=== PATIENT | female | born 1935 | race Caucasian/White ===

== ENCOUNTER 2017-10-29 23:23 | Emergency (ER) | payer MEDICARE, OTHER ==
[2017-10-29] MEDS ORDERED: MORPHINE SULFATE 10 MG/ML INJ IV ONE (23:33)
--- NOTE | 2017-10-29 23:36 | ER Document Report ---
ED General - General Stated Complaint: FALL/HIP PAIN Time Seen by Provider: 10/29/17 23:32 Notes: Patient is an 82-year-old female who presents with complaint of pain in her left hip after she tripped and fell while leaving [facility]. She says she is walking across white gravel and was using her cane and then stumbled and fell onto her left side. She also hit the back of her head. She initially had a headache but now her headache is almost gone after receiving some pain medicine and a months. She still has a lot of left hip pain. No weakness or numbness into her left leg. No pain into the upper extremities back or neck. No pain in the chest abdomen pelvis. She does not take any blood thinning medications. She says a fall was mechanical. She was not feeling lightheaded or dizzy before the fall. No loss of consciousness. TRAVEL OUTSIDE OF THE [place] IN LAST 30 DAYS: No - Related Data Allergies/Adverse Reactions: adalimumab [From Humira] Allergy (Verified 10/29/17 23:51) amoxicillin [From Augmentin] Allergy (Verified 10/29/17 23:51) celecoxib [From Celebrex] Allergy (Verified 10/29/17 23:51) ciprofloxacin [From Cipro] Allergy (Verified 10/29/17 23:51) clavulanic acid [From Augmentin] Allergy (Verified 10/29/17 23:51) infliximab [From Remicade] Allergy (Verified 10/29/17 23:51) metformin Allergy (Verified 10/29/17 23:51) morphine Allergy (Verified 10/29/17 23:51) Sulfa (Sulfonamide Antibiotics) Allergy (Verified 10/29/17 23:51) colchicine Allergy (Uncoded 10/29/17 23:51) Past Medical History - Social History Smoking Status: Never Smoker Frequency of alcohol use: None Drug Abuse: None Family History: Reviewed & Not Pertinent Review of Systems - Review of Systems Notes: My Normal Review Basic REVIEW OF SYSTEMS: CONSTITUTIONAL : Denies fever, chills, or sweats. Denies recent illness. EENT: No facial pain. CARDIOVASCULAR: Denies chest pain. RESPIRATORY: Denies cough, cold, or chest congestion. Denies shortness of breath, difficulty breathing, or wheezing. GASTROINTESTINAL: Denies abdominal pain. Denies nausea, vomiting, or diarrhea. MUSCULOSKELETAL: Left hip pain SKIN: Denies rash or skin lesions. NEUROLOGICAL: Denies altered mental status or loss of consciousness. Had a headache. Denies weakness or paralysis or loss of use of either side. Denies problems with gait or speech. Denies sensory or motor loss. ALL OTHER SYSTEMS REVIEWED AND NEGATIVE. Physical Exam - Vital signs Vitals: Temp Pulse Resp BP Pulse Ox 99 F 98 18 153/91 H 99 10/29/17 23:23 10/29/17 23:23 10/29/17 23:23 10/29/17 23:23 10/29/17 23:23 - Notes Notes: General Appearance: Well nourished, alert, cooperative, no acute distress, mild to moderate obvious discomfort. Vitals: reviewed, See vital signs table. Head: no swelling or tenderness to the head Eyes: PERRL, EOMI, Conjuctiva clear Mouth: No decreasd moisture Neck: Supple, no neck tenderness, no step-offs or deformities. Back: No pain to palpation of thoracic or lumbar spine. No step-offs or acute deformities. Lungs: No wheezing, No rales, No rhonci, No accessory muscle use, good air exchange bilaterally. Heart: Normal rate, Regular rythm, No murmur, no rub Abdomen: Normal BS, soft, No rigidity, No abdominal tenderness, No guarding, no rebound, no abdominal masses, no organomegaly Extremities: good pulses in all extremities, no swelling or tenderness in the extremities with exception of some pain to palpation over left hip and pain with any slight movement of the left hip. Remainder of left lower extremity is nontender. Other 3 extremities are nontender to palpation and have full range of motion without pain. Pelvis is stable. Skin: warm, dry, appropriate color, no rash Neuro: speech clear, oriented x 3, normal affect, responds appropriately to questions. Renal nerves II through XII are intact. Distal sensation intact. Patient is good strength in all 4 extremities. Course - Re-evaluation Re-evalutation: 10/30/17 00:55 Written reevaluate the patient. She did have some increasing pain and therefore ordered more fentanyl. I did inform her her daughter of the broken hip. She has had previous surgeries done by Dr. Brewer in [place]. That was long time ago. She also has . She is from the [facility] whether or not she wants to stay here or go to another hospital. I did talk to him length about this. I did inform them that we are happy to take care of her here. I informed her depending on her insurance sometimes the insurance will not pay the cost of transfer being that this is a conditioning care for here. I told her I cannot confirm or deny this with her current insurance. They are understanding of this. They said they would think about it and let me know if they want to stay here and get treatment or go somewhere else. 10/30/17 01:36 Patient informs me that she wants to be transferred to [place]. Once patient' s blood work is back I will call [facility] to talk to them about transfer. 10/30/17 04:34 10/30/17 04:58 10/30/17 04:[address] Licona, orthopedist, who agrees to accept the patient for transfer. 10/30/17 07:55 On reevaluation patient started having some recurrent pain. I will give her another dose of fentanyl as this has worked well for her in the past. She otherwise has no further concerns and looks well. She is still currently medically stable for transport. Dictation of this chart was performed using voice recognition software; therefore, there may be some unintended grammatical errors. - Vital Signs Vital signs: Temp Pulse Resp BP Pulse Ox 98.3 F 98 18 131/70 H 100 10/30/17 05:36 10/29/17 23:23 10/30/17 07:01 10/30/17 07:01 10/30/17 07:01 - Laboratory Result Diagrams: 10/30/17 02:05 10/30/17 02:05 Laboratory results interpreted by me: 10/30/17 10/30/17 02:05 02:05 RBC 3.22 L Hgb 10.6 L Hct 31.7 L MCV 98 H Seg Neutrophils % 89.1 H Lymphocytes % 6.5 L Potassium 5.2 H Chloride 114 H Carbon Dioxide 13 L BUN 31 H Creatinine 1.90 H Est GFR ( Amer) 31 L Est GFR (Non-Af Amer) 25 L Glucose 115 H Direct Bilirubin 0.5 H Total Protein 8.5 H - EKG Interpretation by Me Additional EKG results interpreted by me: 10/30/17 01:47 EKG is reviewed and interpreted by me. EKG shows sinus rhythm with rate of [address] segment elevation. Less than [address] segment depression in leads V5 and V6. MN interval within normal range. QRS duration is prolonged. QTc interval is borderline. Patient does have a right bundle branch block. No old EKG available for comparison. Discharge - Discharge Clinical Impression: Renal insufficiency, mild Intertrochanteric fracture Qualifiers: Encounter type: initial encounter Fracture type: closed Fracture alignment: displaced Laterality: left Qualified Code(s): S72.142A - Displaced intertrochanteric fracture of left femur, initial encounter for closed fracture Condition: Stable Disposition: Count includes the [facility]
[2017-10-29] MEDS ORDERED: FENTANYL CITRATE INJ/PF 100 MCG/2 ML AMPUL IV ONE (23:41)
--- NOTE | 2017-10-30 00:11 | RADIOLOGY REPORT (SQ) ---
PROCEDURE: CT OF THE HEAD WITHOUT INTRAVENOUS CONTRAST HISTORY: trauma Indication: Same as above Comparison: None Technique: The study was done on 10/29/2017 at 11:[address] of the head was done without intravenous contrast was done in the orthogonal planes. This exam was performed according to our departmental dose-optimization program, which includes automated exposure control, adjustment of the mA and/or KV according to the patient's size and/or use of iterative reconstruction technique. FINDINGS: There is no intracranial hemorrhage, midline shift mass effect or acute focal infarct. There is prominence of the sylvian fissures and the cortical sulci reflecting age related volume loss. There is periventricular and deep white matter low attenuation, most likely related to small vessel white matter ischemic disease. Intracranial atherosclerotic vascular wall calcifications are seen. If clinical concern exists regarding an acute ischemic/vascular pathology being responsible for patient's symptomatology, an MRI of the brain is more sensitive than the current study, in ruling out such a possibility. There is good cardoso/white matter differentiation. The ventricular system is normal. The mastoid air cells are unremarkable . The paranasal sinuses show changes of left maxillary chronic sinusitis . There is no visualization of acute fractures involving the calvarium or the skull base. IMPRESSION: There is no acute intracranial abnormality. Age related and chronic involutional changes are seen.
--- NOTE | 2017-10-30 00:17 | RADIOLOGY REPORT (SQ) ---
EXAM DESCRIPTION: XR HIP 2 OR MORE VIEWS COMPLETED DATE/TME: 10/29/2017 23:32 CLINICAL HISTORY: 82 years, Female, trauma COMPARISON: None. NUMBER OF VIEWS: Three view LIMITATIONS: None. FINDINGS: Comminuted intratrochanteric fracture of the left femur with 1.6 cm distraction. Fracture/deformity of the right inferior pubic ramus with 0.5 cm inferior displacement. IMPRESSION: Fracture of the left proximal femur. Fracture/deformity of the right inferior pubic ramus.
[2017-10-30] MEDS ORDERED: FENTANYL CITRATE INJ/PF 100 MCG/2 ML AMPUL IV ONE ×4 (00:54→07:55)
[2017-10-30 02:22] LABS: ABSOLUTE LYMPHOCYTES (AUTO) 0.5 10^3/uL (0.5-4.7); ABSOLUTE MONOCYTES (AUTO) 0.3 10^3/uL (0.1-1.4); ABSOLUTE NEUT (AUTO) 7.4 10^3/uL (1.7-8.2); BASOPHILS % (AUTO) 0.3 % (0-2); HEMATOCRIT 31.7 % (36.0-47.0); HEMOGLOBIN 10.6 g/dL (12.0-15.5); LYMPHOCYTES % (AUTO) 6.5 % (13-45); MEAN CORPUSCULAR HEMOGLOBIN 32.8 pg (27.0-33.4); MEAN CORPUSCULAR HGB CONC 33.4 g/dL (32.0-36.0); MEAN CORPUSCULAR VOLUME 98 fl (80-97); MONOCYTES % (AUTO) 4.1 % (3-13); PLATELET COUNT 157 10^3/uL (150-450); RED BLOOD COUNT 3.22 10^6/uL (3.72-5.28); RED CELL DISTRIBUTION WIDTH 13.8 % (11.5-14.0); SEGMENTED NEUTROPHILS % (AUTO) 89.1 % (42-78); TOTAL CELLS COUNTED % (AUTO) 100 %; WHITE BLOOD COUNT 8.4 10^3/uL (4.0-10.5)
[2017-10-30 02:28] LABS: INTERNATIONAL RATION (INR) 1.05; PROTHROMBIN TIME 14.2 SEC (11.4-15.4)
[2017-10-30 02:29] LABS: PARTIAL THROMBOPLASTIN TIME 27.2 SEC (23.5-35.8)
--- NOTE | 2017-10-30 02:45 | RADIOLOGY REPORT (SQ) ---
EXAM DESCRIPTION: XR CHEST 1 VIEW COMPLETED DATE/TME: 10/30/2017 00:46 CLINICAL HISTORY: 82 years Female, preop screening COMPARISON: None. NUMBER OF VIEWS/TECHNIQUE: 1/AP FINDINGS: Increased lung volume, 14 cm rounded opacity of the lower mid thorax probably due to a large hiatal hernia,, normal cardiac silhouette atherosclerosis, and grossly intact bony thorax. IMPRESSION: Probably large hiatal hernia; differential diagnosis includes neoplasm. Recommend CT of the chest.
[2017-10-30 02:59] LABS: ALANINE AMINOTRANSFERASE 18 U/L (9-52); ALBUMIN 4.1 g/dL (3.5-5.0); ALKALINE PHOSPHATASE 88 U/L (38-126); ANION GAP 16 (5-19); ASPARTATE AMINO TRANSFERASE 23 U/L (14-36); BILIRUBIN,DIRECT 0.5 mg/dL (0.0-0.4); BILIRUBIN,TOTAL 0.5 mg/dL (0.2-1.3); BLOOD UREA NITROGEN 31 mg/dL (7-20); CALCIUM 9.6 mg/dL (8.4-10.2); CARBON DIOXIDE 13 mmol/L (22-30); CHLORIDE 114 mmol/L (98-107); GLUCOSE 115 mg/dL (75-110); POTASSIUM 5.2 mmol/L (3.6-5.0); SODIUM 142.6 mmol/L (137-145); TOTAL PROTEIN 8.5 g/dL (6.3-8.2)
[2017-10-30] MEDS ORDERED: NORMAL SALINE 1000 ML 1,000 ML IV ONE (05:12)
--- NOTE | 2017-10-30 07:40 | EKG REPORT ---
SEVERITY:- ABNORMAL ECG - SINUS RHYTHM RIGHT BUNDLE BRANCH BLOCK NONSPECIFIC ST-T CHANGES- INFERIOR LEADS : Confirmed by: Art Morales MD 30-Oct-2017 07:39:27
[2017-10-30 10:09] VITALS: BP 132/59
== END 2017-10-30 10:00 | disposition short-term general hospital (02) ==
LOC: ER 23:23
DX: S72.142A Displaced intertrochanteric fracture of left femur, initial encounter for closed fracture (principal); M25.552 Pain in left hip; R51 Headache; W01.0XXA Fall on same level from slipping, tripping and stumbling without subsequent striking against object, initial encounter; Y93.89 Activity, other specified; N28.9 Disorder of kidney and ureter, unspecified; I45.10 Unspecified right bundle-branch block; Z88.8 Allergy status to other drugs, medicaments and biological substances; Z88.0 Allergy status to penicillin; Z88.1 Allergy status to other antibiotic agents; Z88.5 Allergy status to narcotic agent; Z88.2 Allergy status to sulfonamides
CPT/HCPCS: 93005; 96376; 99285; 96361; 51702; 96374; 36415; 85025; 85610; 85730; 80053; 71045; 73502; 70450; 93010; J3010 ×2; J7030

== ENCOUNTER 2020-01-13 18:53 | Inpatient (IN) | payer MEDICARE, OTHER ==
--- NOTE | 2020-01-13 20:29 | ER Document Report ---
ED General - General Chief Complaint: Fall Stated Complaint: FALL/AMS Time Seen by Provider: 01/13/20 20:28 TRAVEL OUTSIDE OF THE [place] IN LAST 30 DAYS: No - HPI Notes: 84-year-old female presents following fall. Patient states that this morning she went to get out of the bed, she was walking with her walker, tripped and fell. States she landed onto her but then the right hip. She has had right hip pain since. Pain is worse with movement. She states that she was able to ambulate some at home. Additionally is reporting right knee pain. She reports that she has had hip surgery on the left hip. States she did not hit her head, no loss of consciousness. She states she has had some nausea and vomiting, denies abdominal pain. States that she had a history of Crohn's disease but has not been on medications for that in several years, states the only medicines she takes is pain medication every once in a while, she does not see a primary care doctor. - Related Data Allergies/Adverse Reactions: adalimumab [From Humira] Allergy (Verified 10/29/17 23:51) amoxicillin [From Augmentin] Allergy (Verified 10/29/17 23:51) celecoxib [From Celebrex] Allergy (Verified 10/29/17 23:51) ciprofloxacin [From Cipro] Allergy (Verified 10/29/17 23:51) clavulanic acid [From Augmentin] Allergy (Verified 10/29/17 23:51) infliximab [From Remicade] Allergy (Verified 10/29/17 23:51) metformin Allergy (Verified 10/29/17 23:51) morphine Allergy (Verified 10/29/17 23:51) Sulfa (Sulfonamide Antibiotics) Allergy (Verified 10/29/17 23:51) colchicine Allergy (Uncoded 10/29/17 23:51) Past Medical History - General Information source: Patient - Social History Smoking Status: Former Smoker Chew tobacco use (# tins/day): No Frequency of alcohol use: None Drug Abuse: None Family History: Reviewed & Not Pertinent Renal/ Medical History: Denies: Hx Peritoneal Dialysis Review of Systems - Review of Systems Constitutional: No symptoms reported EENT: No symptoms reported Cardiovascular: denies: Chest pain Respiratory: denies: Short of breath Gastrointestinal: Nausea, Vomiting. denies: Abdominal pain Genitourinary: denies: Dysuria Female Genitourinary: No symptoms reported Musculoskeletal: See HPI Skin: No symptoms reported Hematologic/Lymphatic: No symptoms reported Neurological/Psychological: denies: Headaches Physical Exam - Vital signs Vitals: Temp Pulse Resp BP Pulse Ox 97.4 F 96 14 150/81 H 100 01/13/20 19:02 01/13/20 19:02 01/13/20 19:02 01/13/20 19:02 01/13/20 19:02 - General General appearance: Appears well, Alert In distress: None - HEENT Head: Normocephalic, Atraumatic Extraocular movements intact: Yes Pupils: PERRL Notes: Full range of motion of neck, no midline tenderness - Respiratory Chest status: Nontender Breath sounds: Normal - Cardiovascular Rhythm: Regular Heart sounds: Normal auscultation Pulses: Normal: Dorsalis pedis Normal capillary refill: Yes - Abdominal Tenderness: Nontender - Extremities Notes: Right leg is internally rotated. Patient has tenderness to the lateral aspect of right proximal thigh. No tenderness to left hip. Range of motion preserved to right knee. Patient is able to wiggle toes of right foot. - Neurological Neuro grossly intact: Yes Cognition: Normal Orientation: AAOx4 Notes: Strength and sensation intact lower extremities - Psychological Associated symptoms: Normal affect - Skin Skin Temperature: Warm Notes: No wound to right hip Course - Re-evaluation Re-evalutation: 84-year-old female with fall from standing, no loss of consciousness or head injury, right hip pain. On exam she is a GCS 15, hemodynamically stable, NCAT, no midline tenderness, no chest/abdomen tenderness. She does have tenderness to the right proximal lateral thigh and the leg is internally rotated, high suspicion for fracture. Right leg is overall neurovascularly in tact. Although she reports no head injury, will CT head and C-spine to ensure that no additional traumatic injuries are present. Has preserved range of motion to right knee and has been ambulatory, will order x-ray to evaluate for fracture. Check labs and urine. Patient reports some nausea/vomiting, possible this is pain related, will treat with Zofran and Pepcid. 01/13/20 21:09 Appears to the right femur fracture, awaiting final read 01/13/20 22:18 Imaging reports available, reviewed. Per radiology head CT is negative for bleed, no C-spine fracture, no knee fracture, positive intertrochanteric fracture Labs/urine grossly unremarkable 01/13/20 22:[address] Delgado on for orthopedics, request medical admission and will see patient in consultation 01/13/20 22:29 Patient and son updated on results and need for admission/surgery 01/13/20 22:49 Patient was excepted to the hospital service for admission. I did have a discussion with son given that her last ED visit for left femur fracture resulted in patient transfer per family request. Patient and son confirmed that they are comfortable with patient staying here for medical/surgical care. - Vital Signs Vital signs: Temp Pulse Resp BP Pulse Ox 97.4 F 96 14 150/81 H 100 01/13/20 19:02 01/13/20 19:02 01/13/20 19:02 01/13/20 19:02 01/13/20 19:02 - Laboratory Result Diagrams: 01/13/20 19:04 01/13/20 19:04 Laboratory results interpreted by me: 01/13/20 01/13/20 01/13/20 19:04 19:04 21:42 Lymph % (Auto) 7.7 L Absolute Neuts (auto) 8.4 H Seg Neutrophils % 85.9 H Sodium 133.8 L Chloride 96 L Est GFR ( Amer) 58 L Est GFR (MDRD) Non-Af 48 L Glucose 223 H Total Protein 8.7 H Urine Protein 100 H - Diagnostic Test Radiology reviewed: Image reviewed, Reports reviewed Discharge - Discharge Clinical Impression: Intertrochanteric fracture of right femur Qualifiers: Encounter type: initial encounter Fracture type: closed Fracture alignment: displaced Qualified Code(s): S72.141A - Displaced intertrochanteric fracture of right femur, initial encounter for closed fracture Disposition: ADMITTED INPATIENT Admitting Provider: Rosa (Hospitalist) Unit Admitted: Medical Floor
[2020-01-13] MEDS ORDERED: ONDANSETRON HCL INJ/PF 4 MG/2 ML SDV IV ONE (20:37)
[2020-01-13] MEDS ORDERED: FAMOTIDINE INJ/PF 20 MG/2 ML SDV IV ONE (20:37)
[2020-01-13] MEDS ORDERED: FENTANYL CITRATE INJ/PF 100 MCG/2 ML AMPUL IV PRN (20:39)
[2020-01-13 20:47] LABS: ABSOLUTE LYMPHOCYTES (AUTO) 0.8 10^3/uL (0.5-4.7); ABSOLUTE MONOCYTES (AUTO) 0.6 10^3/uL (0.1-1.4); ABSOLUTE NEUT (AUTO) 8.4 10^3/uL (1.7-8.2); BASOPHILS % (AUTO) 0.1 % (0-2); HEMATOCRIT 43.1 % (36.0-47.0); HEMOGLOBIN 15.2 g/dL (12.0-15.5); LYMPHOCYTES % (AUTO) 7.7 % (13-45); MEAN CORPUSCULAR HEMOGLOBIN 32.9 pg (27.0-33.4); MEAN CORPUSCULAR HGB CONC 35.2 g/dL (32.0-36.0); MEAN CORPUSCULAR VOLUME 93 fl (80-97); MONOCYTES % (AUTO) 6.3 % (3-13); PLATELET COUNT 240 10^3/uL (150-450); RED BLOOD COUNT 4.62 10^6/uL (3.72-5.28); RED CELL DISTRIBUTION WIDTH 13.5 % (11.5-14.0); SEGMENTED NEUTROPHILS % (AUTO) 85.9 % (42-78); TOTAL CELLS COUNTED % (AUTO) 100 %; WHITE BLOOD COUNT 9.7 10^3/uL (4.0-10.5)
[2020-01-13 21:03] LABS: ALBUMIN 4.6 g/dL (3.5-5.0); ALKALINE PHOSPHATASE 97 U/L (38-126); ANION GAP 15 (5-19); ASPARTATE AMINO TRANSFERASE 34 U/L (14-36); BILIRUBIN,DIRECT 0.2 mg/dL (0.0-0.4); BILIRUBIN,TOTAL 0.8 mg/dL (0.2-1.3); BLOOD UREA NITROGEN 18 mg/dL (7-20); CALCIUM 9.9 mg/dL (8.4-10.2); CARBON DIOXIDE 23 mmol/L (22-30); CHLORIDE 96 mmol/L (98-107); GLUCOSE 223 mg/dL (75-110); TOTAL PROTEIN 8.7 g/dL (6.3-8.2)
[2020-01-13 21:58] LABS: APPEARANCE,URINE CLOUDY; BILIRUBIN,URINE NEGATIVE (NEGATIVE); GLUCOSE, URINE NEGATIVE (NEGATIVE); KETONES,URINE NEGATIVE (NEGATIVE); LEUKOCYTE ESTERASE,URINE NEGATIVE (NEGATIVE); NITRITE,URINE NEGATIVE (NEGATIVE); PROTEIN,URINE 100 mg/dL (NEGATIVE); UROBILINOGEN,URINE NEGATIVE mg/dL (<2.0)
[2020-01-13 21:59] LABS: COLOR,URINE YELLOW
--- NOTE | 2020-01-13 22:00 | RADIOLOGY REPORT (SQ) ---
EXAM DESCRIPTION: XR HIP 2 OR MORE VIEWS COMPLETED DATE/TME: 01/13/2020 20:37 CLINICAL HISTORY: 84 years, Female, fall, eval trauma COMPARISON: Left hip study from 10/30/2017 NUMBER OF VIEWS: Two TECHNIQUE: Two view study of the pelvis and right hip. FINDINGS: Acute right intertrochanteric hip fracture with mild displacement and without significant angulation. ORIF associated with the left hip. There is an acute fracture left tib-fib and 2018. IMPRESSION: Right hip intertrochanteric fracture.
--- NOTE | 2020-01-13 22:05 | RADIOLOGY REPORT (SQ) ---
EXAM DESCRIPTION: CT HEAD WITHOUT IV CONTRAST, XR KNEE 1-2 VIEWS COMPLETED DATE/TME: 01/13/2020 20:37 CLINICAL HISTORY: 84 years, Female, fall, eval trauma EXAM DESCRIPTION: CLINICAL HISTORY: fall, eval trauma COMPARISON: None Available TECHNIQUE: Contiguous axial CT images of the head were obtained. Coronal and sagittal reconstructions were created from the axial data. This exam was performed according to our departmental dose-optimization program, which includes automated exposure control, adjustment of the mA and/or kV according to patient size and/or use of iterative reconstruction technique. FINDINGS: Poorly defined foci of decreased attenuation do not exert significant mass effect on surrounding structures and are likely sequela of prior insult, most likely on the basis of small vessel disease. There is no evidence of acute mass, mass effect, midline shift or hemorrhage. The ventricles and extra-axial CSF spaces are unremarkable. The brain parenchyma appears otherwise normal for the patient's age. No acute abnormalities of the bones is seen. IMPRESSION: No acute intracranial abnormality. EXAM DESCRIPTION: CLINICAL HISTORY: fall, eval trauma COMPARISON: None FINDINGS: 2 view(s) submitted. There is a moderate knee joint effusion. There is genu valgus with lateral femoral tibial joint space narrowing. Osteophytic formation involves the lateral tibial plateau. There is mild to moderate medial femorotibial joint space loss. No fracture or dislocation is identified. Bone marrow attenuation is unremarkable. No radiopaque foreign body is identified. IMPRESSION: Degenerative changes. No acute fracture or dislocation.
--- NOTE | 2020-01-13 22:05 | RADIOLOGY REPORT (SQ) ---
EXAM DESCRIPTION: CT CERVICAL SPINE WITHOUT IV CONTRAST COMPLETED DATE/TME: 01/13/2020 20:37 CLINICAL HISTORY: 84 years, Female, fall, eval trauma COMPARISON: None. TECHNIQUE: Axial images without IV contrast. Sagittal coronal reconstruction. Images stored on PACS. All CT scanners at this facility use dose modulation, iterative reconstruction, and/or weight based dosing when appropriate to reduce radiation dose to as low as reasonably achievable (ALARA). FINDINGS: Mild increased lordosis. No acute fracture dislocation. No suspicious acute prevertebral soft tissue swelling. No significant degenerative changes. No evidence for central foraminal stenosis. Limited images of the upper lungs are unremarkable. IMPRESSION: No acute findings in the cervical spine.
[2020-01-13] MEDS ORDERED: HYDROCODONE/ACETAMINOPHEN 5-325 MG TABLET PO ONE (22:29)
[2020-01-13] MEDS ORDERED: ONDANSETRON HCL INJ/PF 4 MG/2 ML SDV IV PRN (23:05)
[2020-01-13] MEDS ORDERED: HYDROMORPHONE HCL INJ/PF 2 MG/ML AMPULE IV PRN ×5 (23:09→23:42)
[2020-01-13] MEDS ORDERED: LORAZEPAM INJ 2 MG/1 ML VIAL IV PRN (23:09)
[2020-01-13] MEDS ORDERED: ACETAMINOPHEN 650 MG SUPP.RECT PR PRN (23:09)
[2020-01-13 23:48] LABS: INTERNATIONAL RATION (INR) 0.97
[2020-01-14] MEDS: FAMOTIDINE INJ/PF 20 MG/2 ML SDV IV SCH ×3 (00:09→22:01)
[2020-01-14] MEDS: HEPARIN SOD (PORCINE) 5,000 UNIT/ML 1 ML VIAL SUBCUT SCH ×4 (05:36→22:01)
[2020-01-14 05:58] LABS: HEMOGLOBIN 13.7 g/dL (12.0-15.5); MEAN CORPUSCULAR HEMOGLOBIN 32.5 pg (27.0-33.4); MEAN CORPUSCULAR HGB CONC 35.1 g/dL (32.0-36.0); MEAN CORPUSCULAR VOLUME 93 fl (80-97); PLATELET COUNT 205 10^3/uL (150-450); RED BLOOD COUNT 4.21 10^6/uL (3.72-5.28); RED CELL DISTRIBUTION WIDTH 13.4 % (11.5-14.0); WHITE BLOOD COUNT 9.9 10^3/uL (4.0-10.5)
[2020-01-14 06:12] LABS: ALBUMIN 4.1 g/dL (3.5-5.0); ALKALINE PHOSPHATASE 79 U/L (38-126); ANION GAP 16 (5-19); ASPARTATE AMINO TRANSFERASE 31 U/L (14-36); BILIRUBIN,DIRECT 0.2 mg/dL (0.0-0.4); BILIRUBIN,TOTAL 0.8 mg/dL (0.2-1.3); BLOOD UREA NITROGEN 27 mg/dL (7-20); CALCIUM 9.5 mg/dL (8.4-10.2); CARBON DIOXIDE 22 mmol/L (22-30); CHLORIDE 97 mmol/L (98-107); GLUCOSE 175 mg/dL (75-110); POTASSIUM 3.8 mmol/L (3.6-5.0); TOTAL PROTEIN 7.5 g/dL (6.3-8.2)
--- NOTE | 2020-01-14 06:39 | PDOC H&P ---
History of Present Illness Admission Date/PCP: 01/13/2020 22:49 No local PCP Patient complains of: Right hip pain History of Present Illness: CHRISTY SOW is a 84 year old female who presented to the emergency room with acute right hip pain. She admits tripping and falling while walking with her walker earlier today, experiencing immediate severe sharp grating pain in the right hip worsened by movement. Her pain is associated with nausea with vomiting. She denies other associated or accompanying signs and symptoms. She admits a prior similar episode with a left hip fracture 2 years ago. She has not identified any additional aggravating or ameliorating factors for her right hip pain. In the emergency room she was found to have a minimally displaced intertrochanteric fracture of the right femur. She was subsequently admitted to the hospitalist service with consultation to Dr. Delgado for orthopedic care. Past Medical History Cardiac Medical History: Denies: Atrial Fibrillation, Coronary Artery Disease, DVT, Hyperlipidema, Hypertension, Pulmonary Embolism Pulmonary Medical History: Denies: Asthma, Chronic Obstructive Pulmonary Disease (COPD) EENT Medical History: Denies: Cataracts, Ears - Hearing aids Neurological Medical History: Denies: Hemorrhagic CVA, Ischemic CVA, Seizures Endocrine Medical History: Denies: Diabetes Mellitus Type 1, Diabetes Mellitus Type 2, Hyperthyroidism, Hypothyroidism Renal/ Medical History: Denies: Chronic Kidney Disease, Nephrolithiasis Malignancy Medical History: Reports: None GI Medical History: Reports: Crohn's Disease Denies: Cirrhosis, Hepatitis Musculoskeltal Medical History: Denies: Fibromyalgia, Gout Skin Medical History: Denies: Eczema, Psoriasis Psychiatric Medical History: Denies: Alcohol Dependency, Substance Abuse, Tobacco Dependency Traumatic Medical History: Reports: None Hematology: Denies: Anemia, Bleeding Tendencies Infectious Medical History: Reports: None Past Surgical History Past Surgical History: Reports: Orthopedic Surgery - Left hip ORIF Social History Information Source: Patient Lives with: Family Smoking Status: Former Smoker Electronic Cigarette use?: No Frequency of Alcohol Use: None Hx Recreational Drug Use: No Drugs: None Hx Prescription Drug Abuse: No - Advance Directive Resuscitation Status: Full Code Surrogate healthcare decision maker:: Regan Guzmánbhupinder Family History Family History: denies: CAD, DM, Hypertension, Malignancy Parental Family History Reviewed: Yes Children Family History Reviewed: No Sibling(s) Family History Reviewed.: No Medication/Allergy Home Medications: Hydrocodone/Acetaminophen [[place] 5-325 mg Tablet] 1 tab PO Q4 PRN #16 tablet 01/05/15 Allergies/Adverse Reactions: adalimumab [From Humira] Allergy (Verified 10/29/17 23:51) amoxicillin [From Augmentin] Allergy (Verified 10/29/17 23:51) celecoxib [From Celebrex] Allergy (Verified 10/29/17 23:51) ciprofloxacin [From Cipro] Allergy (Verified 10/29/17 23:51) clavulanic acid [From Augmentin] Allergy (Verified 10/29/17 23:51) infliximab [From Remicade] Allergy (Verified 10/29/17 23:51) metformin Allergy (Verified 10/29/17 23:51) morphine Allergy (Verified 10/29/17 23:51) Sulfa (Sulfonamide Antibiotics) Allergy (Verified 10/29/17 23:51) colchicine Allergy (Uncoded 10/29/17 23:51) Review of Systems Constitutional: ABSENT: chills, fever(s) Eyes: ABSENT: visual disturbances, other - Eye pain Ears: ABSENT: hearing changes, other - Ear pain Nose, Mouth, and Throat: ABSENT: headache(s), sore throat Cardiovascular: ABSENT: chest pain, palpitations Respiratory: ABSENT: cough, dyspnea Gastrointestinal: ABSENT: abdominal pain, constipation, diarrhea, nausea, vomiting Genitourinary: ABSENT: dysuria, hematuria Musculoskeletal: PRESENT: as per HPI, other - Acute right hip pain. ABSENT: back pain, joint swelling, muscle weakness Integumentary: ABSENT: pruritus, rash Neurological: ABSENT: confusion, convulsions, focal weakness, memory loss, syncope Psychiatric: ABSENT: anxiety, depression Endocrine: ABSENT: cold intolerance, heat intolerance Hematologic/Lymphatic: ABSENT: easy bleeding, easy bruising Allergic/Immunologic: ABSENT: seasonal rhinorrhea Physical Exam Vital Signs: Temp Pulse Resp BP Pulse Ox 97.4 F 96 14 150/81 H 100 01/13/20 19:02 01/13/20 19:02 01/13/20 19:02 01/13/20 19:02 01/13/20 19:02 Intake & Output 01/11/20 01/12/20 01/13/20 23:59 23:59 23:59 Weight 80 kg General appearance: PRESENT: cooperative, mild distress - Due to right hip pain Head exam: PRESENT: atraumatic, normocephalic Eye exam: PRESENT: conjunctiva pink. ABSENT: conjunctival injection, scleral icterus Ear exam: PRESENT: normal external ear exam. ABSENT: bleeding, drainage Mouth exam: PRESENT: dry mucosa, neck supple Neck exam: ABSENT: thyromegaly, tracheal deviation Respiratory exam: PRESENT: clear to auscultation dorina, symmetrical, unlabored Cardiovascular exam: PRESENT: RRR. ABSENT: clicks, gallop, rubs Pulses: PRESENT: normal radial pulses, normal dorsalis pedis pul Vascular exam: PRESENT: normal capillary refill. ABSENT: pallor GI/Abdominal exam: PRESENT: normal bowel sounds, soft Rectal exam: PRESENT: deferred Extremities exam: PRESENT: tenderness - Right hip tenderness to palpation worsened with any range of motion. ABSENT: joint swelling, pedal edema Musculoskeletal exam: PRESENT: deformity - Mild shortening and external rotation of the right lower extremity. ABSENT: dislocation Neurological exam: PRESENT: alert, oriented to person, oriented to place, oriented to time, oriented to situation, CN II-XII grossly intact. ABSENT: motor sensory deficit Psychiatric exam: PRESENT: appropriate affect, normal mood Skin exam: PRESENT: dry, intact, warm. ABSENT: jaundice, rash, urticaria Results Laboratory Results: 01/13/20 19:04 01/13/20 19:04 01/13/20 01/13/20 01/13/20 19:04 19:04 21:42 WBC 9.7 RBC 4.62 Hgb 15.2 Hct 43.1 MCV 93 MCH 32.9 MCHC 35.2 RDW 13.5 Plt Count 240 Seg Neutrophils % 85.9 H Sodium 133.8 L Potassium 4.0 Chloride 96 L Carbon Dioxide 23 Anion Gap 15 BUN 18 Creatinine 1.10 Est GFR ( Amer) 58 L Glucose 223 H Calcium 9.9 Total Bilirubin 0.8 AST 34 Alkaline Phosphatase 97 Total Protein 8.7 H Albumin 4.6 Urine Color YELLOW Urine Appearance CLOUDY Urine pH 6.0 Ur Specific [place] 1.010 Urine Protein 100 H Urine Glucose (UA) NEGATIVE Urine Ketones NEGATIVE Urine Blood NEGATIVE Urine Nitrite NEGATIVE Ur Leukocyte Esterase NEGATIVE Urine WBC (Auto) 2 Urine RBC (Auto) 2 Impressions: Cervical Spine CT 01/13/20 20:37 IMPRESSION: No acute findings in the cervical spine. Head CT 01/13/20 20:37 IMPRESSION: No acute intracranial abnormality. EXAM DESCRIPTION: CLINICAL HISTORY: fall, eval trauma COMPARISON: None FINDINGS: 2 view(s) submitted. There is a moderate knee joint effusion. There is genu valgus with lateral femoral tibial joint space narrowing. Osteophytic formation involves the lateral tibial plateau. There is mild to moderate medial femorotibial joint space loss. No fracture or dislocation is identified. Bone marrow attenuation is unremarkable. No radiopaque foreign body is identified. IMPRESSION: Degenerative changes. No acute fracture or dislocation. Hip/Pelvis X-Ray 01/13/20 20:37 IMPRESSION: Right hip intertrochanteric fracture. Knee X-Ray 01/13/20 20:37 IMPRESSION: No acute intracranial abnormality. EXAM DESCRIPTION: CLINICAL HISTORY: fall, eval trauma COMPARISON: None FINDINGS: 2 view(s) submitted. There is a moderate knee joint effusion. There is genu valgus with lateral femoral tibial joint space narrowing. Osteophytic formation involves the lateral tibial plateau. There is mild to moderate medial femorotibial joint space loss. No fracture or dislocation is identified. Bone marrow attenuation is unremarkable. No radiopaque foreign body is identified. IMPRESSION: Degenerative changes. No acute fracture or dislocation. Assessment and Plan - Diagnosis (1) Intertrochanteric fracture of right femur Qualifiers: Encounter type: initial encounter Fracture type: closed Fracture alignment: displaced Qualified Code(s): S72.141A - Displaced intertrochanteric fracture of right femur, initial encounter for closed fracture Is this a current diagnosis for this admission?: Yes (2) Acute right hip pain Is this a current diagnosis for this admission?: Yes (3) Nausea with vomiting Qualifiers: Vomiting type: unspecified Vomiting Intractability: non-intractable Qualified Code(s): R11.2 - Nausea with vomiting, unspecified Is this a current diagnosis for this admission?: Yes (4) Crohn's disease in remission Is this a current diagnosis for this admission?: Yes - Plan Summary Summary: Patient will be admitted to the medical floor where she received routine supportive and symptomatic cares. Dr. Jayme Delgado will be consulted for orthopedic services and management. Patient received morphine sulfate 2 to 4 mg IV every 2 hours as needed for pain. She will receive Ativan 1 mg IV every 4 ho urs as needed for anxiety or restlessness. She will receive IV fluids utilizing 5% dextrose lactated Ringer solution at 167 mL/h. She will be n.p.o. for possible surgery tomorrow. Additional laboratory and/or radiographic evaluations will be obtained as needed. - Time Time Spent with patient: Less than 15 minutes Medications reviewed and adjusted accordingly: Yes Anticipated Discharge Disposition: [facility] Facility Anticipated Discharge Timeframe: when bed available - Inpatient Certification Based on my medical assessment, after consideration of the patient's comorbidities, presenting symptoms, or acuity I expect that the services needed warrant INPATIENT care.: Yes I certify that my determination is in accordance with my understanding of Medicare's requirements for reasonable and necessary INPATIENT services [42 CFR 412.3e].: Yes Medical Necessity: Need Close Monitoring Due to Risk of Patient Decompensation, Need For IV Fluids, Need for Pain Control, Need for Surgery
--- NOTE | 2020-01-14 08:46 | PDOC CONSULTATION ---
Consultation Consult Date: 01/14/20 Provider Consulted: VAN MCELROY JR History of Present Illness Admission Date/PCP: 01/13/20 22:58 History of Present Illness: CHRISTY SOW is a 84 year old female who fell at home. She had multiple prior falls including a fall 2 years ago that resulted in a right intertrochanteric fracture that was treated with a cephalomedullary nail. She ambulates with a walker. She denies prior hip pain. She denies any other associated injury with this fall, including no current headache, knee pain, loss of lower extremity motor function or sensation. She denies loss of consciousness after the fall. Pain is times aching in nature, worse with any potential motion, improved with rest and pain medication. Pain is 6 out of 10 at baseline. Past Medical History Cardiac Medical History: Denies: Atrial Fibrillation, Coronary Artery Disease, DVT, Hyperlipidema, Hypertension, Pulmonary Embolism Pulmonary Medical History: Denies: Asthma, Chronic Obstructive Pulmonary Disease (COPD) EENT Medical History: Denies: Cataracts, Ears - Hearing aids Neurological Medical History: Denies: Hemorrhagic CVA, Ischemic CVA, Seizures Endocrine Medical History: Denies: Diabetes Mellitus Type 1, Diabetes Mellitus Type 2, Hyperthyroidism, Hypothyroidism Renal/ Medical History: Denies: Chronic Kidney Disease, Nephrolithiasis Malignancy Medical History: Reports: None GI Medical History: Reports: Crohn's Disease Denies: Cirrhosis, Hepatitis Musculoskeltal Medical History: Denies: Fibromyalgia, Gout Skin Medical History: Denies: Eczema, Psoriasis Psychiatric Medical History: Reports: Depression Denies: Alcohol Dependency, Substance Abuse, Tobacco Dependency Traumatic Medical History: Reports: None Hematology: Denies: Anemia, Bleeding Tendencies Infectious Medical History: Reports: None Past Surgical History Past Surgical History: Reports: Orthopedic Surgery - Left hip ORIF Social History Lives with: Family Smoking Status: Former Smoker Electronic Cigarette use?: No Frequency of Alcohol Use: None Hx Recreational Drug Use: No Drugs: None Hx Prescription Drug Abuse: No - Advance Directive Resuscitation Status: Full Code Family History Family History: denies: CAD, DM, Hypertension, Malignancy Parental Family History Reviewed: No Children Family History Reviewed: NA Sibling(s) Family History Reviewed.: NA Medication/Allergy Home Medications: Hydrocodone/Acetaminophen [[place] 5-325 mg Tablet] 1 tab PO Q4 PRN #16 tablet 10/20/15 Allergies/Adverse Reactions: adalimumab [From Humira] Allergy (Verified 10/29/17 23:51) amoxicillin [From Augmentin] Allergy (Verified 10/29/17 23:51) celecoxib [From Celebrex] Allergy (Verified 10/29/17 23:51) ciprofloxacin [From Cipro] Allergy (Verified 10/29/17 23:51) clavulanic acid [From Augmentin] Allergy (Verified 10/29/17 23:51) infliximab [From Remicade] Allergy (Verified 10/29/17 23:51) metformin Allergy (Verified 10/29/17 23:51) morphine Allergy (Verified 10/29/17 23:51) Sulfa (Sulfonamide Antibiotics) Allergy (Verified 10/29/17 23:51) colchicine Allergy (Uncoded 10/29/17 23:51) Review of Systems Review of Systems: Constitutional: ABSENT: anorexia, chills, night sweats Cardiovascular: ABSENT: chest pain Respiratory: ABSENT: dyspnea Gastrointestinal: ABSENT: vomiting Genitourinary: ABSENT: dysuria Integumentary: ABSENT: rash Neurological: ABSENT: confusion, memory loss, numbness Psychiatric: ABSENT: hallucinations Hematologic/Lymphatic: ABSENT: easy bleeding Physical Exam Vital Signs: Temp Pulse Resp BP Pulse Ox 97.6 F 85 16 126/60 H 100 01/14/20 05:13 01/14/20 05:13 01/14/20 05:13 01/14/20 05:13 01/14/20 05:13 Intake & Output 01/13/20 01/14/20 01/15/20 06:59 06:59 06:59 Intake Total 60 Output Total 350 Balance -290 Weight 78.5 kg Physical Exam: General appearance: PRESENT: no acute distress, cooperative, well-nourished, obese Head exam: PRESENT: atraumatic, normocephalic Eye exam: PRESENT: EOMI Ear exam: PRESENT: normal external ear exam Mouth exam: PRESENT: neck supple Neck exam: ABSENT: tracheal deviation Respiratory exam: PRESENT: symmetrical, unlabored. ABSENT: accessory muscle use, wheezes Pulses: PRESENT: normal radial pulses, normal dorsalis pedis pulse Vascular exam: PRESENT: normal capillary refill GI/Abdominal exam: ABSENT: distended, firm Extremities exam: PRESENT: full ROM of bilateral shoulders, elbows wrists, knees, hips and ankles without pain Musculoskeletal exam: PRESENT: full ROM, normal inspection of all 4 extremities aside from that noted below. Neurological exam: PRESENT: alert, awake, oriented to person, oriented to place, oriented to time Psychiatric exam: PRESENT: appropriate affect. ABSENT: agitated Focused psych exam: ABSENT: catatonic Skin exam: PRESENT: intact. ABSENT: dry All as above aside from that noted in the HPI and the following: Right lower extremity Neurovascular intact, sensation grossly intact to all distributions, motor function intact to EHL TA gastroc EDB. Leg shortened externally rotated Skin intact Compartments soft, pulses 2+ Results Laboratory Results: 01/14/20 04:31 01/14/20 04:31 01/13/20 01/13/20 01/13/20 19:04 19:04 21:42 WBC 9.7 RBC 4.62 Hgb 15.2 Hct 43.1 MCV 93 MCH 32.9 MCHC 35.2 RDW 13.5 Plt Count 240 Seg Neutrophils % 85.9 H Sodium 133.8 L Potassium 4.0 Chloride 96 L Carbon Dioxide 23 Anion Gap 15 BUN 18 Creatinine 1.10 Est GFR ( Amer) 58 L Glucose 223 H Calcium 9.9 Magnesium Total Bilirubin 0.8 AST 34 Alkaline Phosphatase 97 Total Protein 8.7 H Albumin 4.6 Urine Color YELLOW Urine Appearance CLOUDY Urine pH 6.0 Ur Specific [place] 1.010 Urine Protein 100 H Urine Glucose (UA) NEGATIVE Urine Ketones NEGATIVE Urine Blood NEGATIVE Urine Nitrite NEGATIVE Ur Leukocyte Esterase NEGATIVE Urine WBC (Auto) 2 Urine RBC (Auto) 2 01/14/20 01/14/20 04:31 04:31 WBC 9.9 RBC 4.21 Hgb 13.7 Hct 39.0 MCV 93 MCH 32.5 MCHC 35.1 RDW 13.4 Plt Count 205 Seg Neutrophils % Sodium 134.8 L Potassium 3.8 Chloride 97 L Carbon Dioxide 22 Anion Gap 16 BUN 27 H Creatinine 1.74 H Est GFR ( Amer) 34 L Glucose 175 H Calcium 9.5 Magnesium 1.8 Total Bilirubin 0.8 AST 31 Alkaline Phosphatase 79 Total Protein 7.5 Albumin 4.1 Urine Color Urine Appearance Urine pH Ur Specific [place] Urine Protein Urine Glucose (UA) Urine Ketones Urine Blood Urine Nitrite Ur Leukocyte Esterase Urine WBC (Auto) Urine RBC (Auto) Impressions: Cervical Spine CT 01/13/20 20:37 IMPRESSION: No acute findings in the cervical spine. Head CT 01/13/20 20:37 IMPRESSION: No acute intracranial abnormality. EXAM DESCRIPTION: CLINICAL HISTORY: fall, eval trauma COMPARISON: None FINDINGS: 2 view(s) submitted. There is a moderate knee joint effusion. There is genu valgus with lateral femoral tibial joint space narrowing. Osteophytic formation involves the lateral tibial plateau. There is mild to moderate medial femorotibial joint space loss. No fracture or dislocation is identified. Bone marrow attenuation is unremarkable. No radiopaque foreign body is identified. IMPRESSION: Degenerative changes. No acute fracture or dislocation. Hip/Pelvis X-Ray 01/13/20 20:37 IMPRESSION: Right hip intertrochanteric fracture. Knee X-Ray 01/13/20 20:37 IMPRESSION: No acute intracranial abnormality. EXAM DESCRIPTION: CLINICAL HISTORY: fall, eval trauma COMPARISON: None FINDINGS: 2 view(s) submitted. There is a moderate knee joint effusion. There is genu valgus with lateral femoral tibial joint space narrowing. Osteophytic formation involves the lateral tibial plateau. There is mild to moderate medial femorotibial joint space loss. No fracture or dislocation is identified. Bone marrow attenuation is unremarkable. No radiopaque foreign body is identified. IMPRESSION: Degenerative changes. No acute fracture or dislocation. Assessment & Plan - Diagnosis (1) Intertrochanteric fracture of right femur Qualifiers: Encounter type: initial encounter Fracture type: closed Fracture a lignment: displaced Qualified Code(s): S72.141A - Displaced intertrochanteric fracture of right femur, initial encounter for closed fracture Is this a current diagnosis for this admission?: Yes Plan: Plan on operative intervention this afternoon. Keep n.p.o. Ancef 2 g on-call to the OR Bedrest - Multimodal pain control to avoid overuse of narcotics - Hospitalist to medically optimize
--- NOTE | 2020-01-14 09:17 | RADIOLOGY REPORT (SQ) ---
EXAM DESCRIPTION: CHEST SINGLE VIEW IMAGES COMPLETED DATE/TIME: 01/14/2020 9:01 am REASON FOR STUDY: pre op COMPARISON: 10/30/2017 EXAM PARAMETERS: NUMBER OF VIEWS: One view. TECHNIQUE: Single frontal radiographic view of the chest acquired. RADIATION DOSE: NA LIMITATIONS: None. FINDINGS: LUNGS AND PLEURA: No opacities, masses or pneumothorax. No pleural effusion. MEDIASTINUM AND HILAR STRUCTURES: No masses. Contour normal. HEART AND VASCULAR STRUCTURES: Heart normal in size. Normal vasculature. BONES: No acute findings. HARDWARE: None in the chest. OTHER: Stable hiatal hernia. IMPRESSION: Stable hiatal hernia. No acute findings. TECHNICAL DOCUMENTATION: JOB ID: [id number] 2010 [employer]- All Rights Reserved Reading location - IP/workstation name: [email or web address]
[2020-01-14] MEDS: DEXTROSE 5%-LACTATED RINGERS 1,000 ML IV PRN ×2 (10:00→19:20)
--- NOTE | 2020-01-14 12:48 | EKG REPORT ---
SEVERITY:- ABNORMAL ECG - SINUS RHYTHM PROBABLE LEFT ATRIAL ABNORMALITY RIGHT BUNDLE BRANCH BLOCK NONSPECIFIC ST-T CHANGES, DIFFUSE : Confirmed by: Art Morales MD 14-Jan-2020 12:47:31
--- NOTE | 2020-01-14 18:10 | PDOC PROGRESS REPORT ---
Subjective Progress Note for:: 01/14/20 Subjective:: CHRISTY SOW is a 84 year old female who presented to the emergency room with acute right hip pain. She admits tripping and falling while walking with her walker earlier today, experiencing immediate severe sharp grating pain in the right hip worsened by movement. Her pain is associated with nausea with vomiting. She denies other associated or accompanying signs and symptoms. She admits a prior similar episode with a left hip fracture 2 years ago. She has not identified any additional aggravating or ameliorating factors for her right hip pain. In the emergency room she was found to have a minimally displaced intertrochanteric fracture of the right femur. She was subsequently admitted to the hospitalist service with consultation to Dr. Delgado for orthopedic care. D2 hospital stay. 01/14/20. She was seen and examined at bedside. right hip pain is very minimal and only during movements. she denies any chest pain, SOB, palpitations. I have confirmed with her daughter that she is not on any chronic medications for chronic illnesses. Per Dr. Delgado, plan to do ORIF tomorrow. NPO at midnight Reason For Visit: INTERTROCHANTERIC FRACTURE OF RIGHT FEMUR Physical Exam Vital Signs: Temp Pulse Resp BP Pulse Ox 98.6 F 88 12 146/77 H 99 01/14/20 08:27 01/14/20 08:27 01/14/20 08:27 01/14/20 08:27 01/14/20 08:27 Intake & Output 01/13/20 01/14/20 01/15/20 06:59 06:59 06:59 Intake Total 60 Output Total 350 Balance -290 Weight 78.5 kg General appearance: PRESENT: no acute distress, cooperative Head exam: PRESENT: atraumatic, normocephalic Eye exam: PRESENT: EOMI, PERRLA Mouth exam: PRESENT: moist Neck exam: PRESENT: full ROM Respiratory exam: PRESENT: clear to auscultation dorina, symmetrical, unlabored. ABSENT: rales Cardiovascular exam: PRESENT: RRR, +S1, +S2 Pulses: PRESENT: +2 pedal pulses bilateral GI/Abdominal exam: PRESENT: normal bowel sounds, soft. ABSENT: rebound, tenderness Extremities exam: PRESENT: other - Internally rotated right leg secondary to fracture with minimal range of motion Musculoskeletal exam: PRESENT: other - Limited range of motion right leg Neurological exam: PRESENT: alert, awake, oriented to person, oriented to place, oriented to time, oriented to situation Psychiatric exam: PRESENT: normal mood Skin exam: PRESENT: normal color Results Laboratory Results: 01/14/20 04:31 01/14/20 04:31 01/13/20 01/13/20 01/13/20 19:04 19:04 21:42 WBC 9.7 RBC 4.62 Hgb 15.2 Hct 43.1 MCV 93 MCH 32.9 MCHC 35.2 RDW 13.5 Plt Count 240 Seg Neutrophils % 85.9 H Sodium 133.8 L Potassium 4.0 Chloride 96 L Carbon Dioxide 23 Anion Gap 15 BUN 18 Creatinine 1.10 Est GFR ( Amer) 58 L Glucose 223 H Calcium 9.9 Magnesium Total Bilirubin 0.8 AST 34 Alkaline Phosphatase 97 Total Protein 8.7 H Albumin 4.6 Urine Color YELLOW Urine Appearance CLOUDY Urine pH 6.0 Ur Specific Weston 1.010 Urine Protein 100 H Urine Glucose (UA) NEGATIVE Urine Ketones NEGATIVE Urine Blood NEGATIVE Urine Nitrite NEGATIVE Ur Leukocyte Esterase NEGATIVE Urine WBC (Auto) 2 Urine RBC (Auto) 2 01/14/20 01/14/20 04:31 04:31 WBC 9.9 RBC 4.21 Hgb 13.7 Hct 39.0 MCV 93 MCH 32.5 MCHC 35.1 RDW 13.4 Plt Count 205 Seg Neutrophils % Sodium 134.8 L Potassium 3.8 Chloride 97 L Carbon Dioxide 22 Anion Gap 16 BUN 27 H Creatinine 1.74 H Est GFR ( Amer) 34 L Glucose 175 H Calcium 9.5 Magnesium 1.8 Total Bilirubin 0.8 AST 31 Alkaline Phosphatase 79 Total Protein 7.5 Albumin 4.1 Urine Color Urine Appearance Urine pH Ur Specific Weston Urine Protein Urine Glucose (UA) Urine Ketones Urine Blood Urine Nitrite Ur Leukocyte Esterase Urine WBC (Auto) Urine RBC (Auto) Impressions: Cervical Spine CT 01/13/20 20:37 IMPRESSION: No acute findings in the cervical spine. Head CT 01/13/20 20:37 IMPRESSION: No acute intracranial abnormality. EXAM DESCRIPTION: CLINICAL HISTORY: fall, eval trauma COMPARISON: None FINDINGS: 2 view(s) submitted. There is a moderate knee joint effusion. There is genu valgus with lateral femoral tibial joint space narrowing. Osteophytic formation involves the lateral tibial plateau. There is mild to moderate medial femorotibial joint space loss. No fracture or dislocation is identified. Bone marrow attenuation is unremarkable. No radiopaque foreign body is identified. IMPRESSION: Degenerative changes. No acute fracture or dislocation. Hip/Pelvis X-Ray 01/13/20 20:37 IMPRESSION: Right hip intertrochanteric fracture. Knee X-Ray 01/13/20 20:37 IMPRESSION: No acute intracranial abnormality. EXAM DESCRIPTION: CLINICAL HISTORY: fall, eval trauma COMPARISON: None FINDINGS: 2 view(s) submitted. There is a moderate knee joint effusion. There is genu valgus with lateral femoral tibial joint space narrowing. Osteophytic formation involves the lateral tibial plateau. There is mild to moderate medial femorotibial joint space loss. No fracture or dislocation is identified. Bone marrow attenuation is unremarkable. No radiopaque foreign body is identified. IMPRESSION: Degenerative changes. No acute fracture or dislocation. Chest X-Ray 01/14/20 00:00 IMPRESSION: Stable hiatal hernia. No acute findings. Assessment and Plan - Diagnosis (1) Intertrochanteric fracture of right femur Qualifiers: Encounter type: initial encounter Fracture type: closed Fracture alignment: displaced Qualified Code(s): S72.141A - Displaced intertrochanteric fracture of right femur, initial encounter for closed fracture Is this a current diagnosis for this admission?: Yes Plan: - came in after a fall. Had a previous fall with left hip fracture 2 years prior - CT head negative - XR hip showed right hip intertrochanteric fracture -Ortho on board who plans to do ORIF tomorrow. -N.p.o. post midnight -CXR and EKG reviewed - Class 1 low risk RCRI -PT/OT - will need acute rehab (2) Acute right hip pain Is this a current diagnosis for this admission?: Yes Plan: - 2/2 to right hip fracture -dilaudid IV for severe pain - heat pack and lidocaine patch (3) Crohn's disease in remission Is this a current diagnosis for this admission?: Yes (4) DVT prophylaxis Is this a current diagnosis for this admission?: Yes Plan: heparin sq - Plan Summary Summary: Patient will be admitted to the medical floor where she received routine supportive and symptomatic cares. Dr. Jayme Delgado will be consulted for orthopedic services and management. Patient received morphine sulfate 2 to 4 mg IV every 2 hours as needed for pain. She will receive Ativan 1 mg IV every 4 hours as needed for anxiety or restlessness. She will receive IV fluids utilizing 5% dextrose lactated Ringer solution at 167 mL/h. She will be n.p.o. for possible surgery tomorrow. Additional laboratory and/or radiographic evaluations will be obtained as needed. - Time Time Spent with patient: 25-34 minutes Medications reviewed and adjusted accordingly: Yes Anticipated Discharge Disposition: Residential Facility Anticipated Discharge Timeframe: to be determined
[2020-01-14] MEDS: LIDOCAINE 5% (700 MG) TRANSDERMAL ADH..PATCH TP SCH (22:01)
--- NOTE | 2020-01-14 22:25 | RADIOLOGY REPORT (SQ) ---
EXAM DESCRIPTION: MR BRAIN WITHOUT IV CONTRAST COMPLETED DATE/TME: 01/14/2020 00:00 CLINICAL HISTORY: 84 years, Female, new onset confusion/slurred speech CLINICAL HISTORY: new onset confusion/slurred speech COMPARISON: None TECHNIQUE: Multiplanar multisequence imaging of the brain including the intravenous administration of contrast. FINDINGS: There is abnormally decreased T1 and increased T2 signal of the posterior inferior and mid aspects of the right cerebellum. There is abnormally restricted diffusion in this region. There is a 4 mm focus of increased signal on diffusion imaging in the right putamen. No other evidence of abnormally restricted diffusion elsewhere. On ADC, there is corresponding decreased signal in the right cerebellum and right putamen. There is increased FLAIR signal in the right cerebellum corresponding to the region of decreased ADC. There is very faintly increased FLAIR signal involving the right putamen at the site of increased diffusion signal. There is encephalomalacia involving the posterior left cerebellum. Scattered foci of increased T2 signal intensity elsewhere do not exert significant mass effect on surrounding structures and may be sequela of prior insult, most likely on the basis of small vessel disease. There is a small focus of encephalomalacia in the posterior right cerebellum. Small focus of susceptibility in the left globus pallidus is most likely hemosiderin or dystrophic calcification. Similar finding is seen in the white matter of the left temporal lobe. Patient motion limits detail. There is no additional acute abnormality. IMPRESSION: Findings are consistent with acute ischemia of the right cerebellar hemisphere likely at least 6 to eight hours old given mildly increased FLAIR signal. Sequela of additional ischemic insult elsewhere. Acute to subacute small ischemic focus of the right putamen. See additional findings above.
[2020-01-15] MEDS: HEPARIN SOD (PORCINE) 5,000 UNIT/ML 1 ML VIAL SUBCUT SCH (06:15)
[2020-01-15] MEDS ORDERED: ONDANSETRON HCL INJ/PF 4 MG/2 ML SDV ONE ×2 (07:01→12:31)
[2020-01-15] MEDS ORDERED: PROPOFOL INJ 200 MG/20 ML VIAL IV ONE (07:01)
[2020-01-15] MEDS ORDERED: MIDAZOLAM 2 MG/2 ML INJ ONE (07:01)
[2020-01-15] MEDS ORDERED: FENTANYL CITRATE INJ/PF 100 MCG/2 ML AMPUL ONE ×2 (07:01→13:17)
[2020-01-15] MEDS ORDERED: INFLUENZA QUAD (6MOS+) 2020-21 VAC 0.5 ML SYR IM ONE (08:00)
[2020-01-15] MEDS ORDERED: ACETAMINOPHEN 325 MG TABLET PO PRN (09:03)
[2020-01-15] MEDS ORDERED: HYDROMORPHONE HCL INJ/PF 2 MG/ML AMPULE ONE (09:11)
[2020-01-15] MEDS: FAMOTIDINE INJ/PF 20 MG/2 ML SDV IV SCH ×2 (09:20→22:00)
[2020-01-15] MEDS ORDERED: ASPIRIN 81 MG TABLET, CHEWABLE PO SCH (10:00)
[2020-01-15] MEDS ORDERED: CEFAZOLIN 2 GM/D5W RTU 2 GM/50 ML RTUPB IV ONE (10:16)
[2020-01-15] MEDS ORDERED: EPHEDRINE SULFATE INJ 50 MG/1 ML AMPULE ONE (11:11)
[2020-01-15] MEDS ORDERED: DIPHENHYDRAMINE HCL 50 MG/ML VIAL IV PRN (11:25)
[2020-01-15] MEDS ORDERED: FENTANYL CITRATE INJ/PF 100 MCG/2 ML AMPUL IV PRN ×3 (11:25)
[2020-01-15] MEDS ORDERED: ONDANSETRON HCL INJ/PF 4 MG/2 ML SDV IV PRN (11:25)
[2020-01-15] MEDS ORDERED: MEPERIDINE HCL/PF INJ 25 MG/1 ML DISP.SYRIN IV PRN (11:25)
--- NOTE | 2020-01-15 12:17 | CDI QUERY ---
CDI Query CDI Review: Dear Provider, Please document in progress notes and D/C summary if you agree with the following: ACUTE RENAL FAILURE? ACUTE KIDNEY INJURY? CHRONIC KIDNEY DISEASE STAGE ? NONSPECIFIC LAB FINDING? OTHER? Clinical data: Cr increased to 1.74 from 1.10 IVF's x 3L Thanks, Carina Merrill, CDI [phone]
--- NOTE | 2020-01-15 12:21 | CDI QUERY ---
<CARINA CLIFTON - Last Filed: 01/15/20 12:17> CDI Query CDI Review: Dear Provider, Please document in progress notes and D/C summary if you agree with the following: HYPONATREMIA? HYPO OSMOLARITY? NONSPECIFIC LAB FINDING? OTHER? Clinical data: Na+ 133.8 134.8 IVF's x 3 L Carina Mahoney, CDI [phone] <JOSE MIGUEL CHUA - Last Filed: 01/18/20 18:44> CDI Query CDI Review: hyponatremia documented
[2020-01-15] MEDS ORDERED: ROCURONIUM BROMIDE INJ 50 MG/5 ML VIAL IV ONE (12:31)
[2020-01-15] MEDS ORDERED: PHENYLEPHRINE HCL INJ/PF 10 MG/1 ML SDV ONE (12:31)
[2020-01-15] MEDS ORDERED: DEXAMETHASONE SOD PHOSPHATE INJ 4 MG/1 ML VIAL ONE (12:31)
--- NOTE | 2020-01-15 12:45 | Operative Report ---
Operative Report DATE OF SURGERY: 01/15/20 PREOPERATIVE DIAGNOSIS: Right intertrochanteric hip fracture. POSTOPERATIVE DIAGNOSIS: Right intertrochanteric hip fracture OPERATION: Right intertrochanteric hip fracture short cephalomedullary nail SURGEON: VAN MCELROY JR ANESTHESIA: GA COMPLICATIONS: None ESTIMATED BLOOD LOSS: 100 cc PROCEDURE: Patient was brought in operating suite and provided with general anesthesia. They were then transferred to the traction table and placed supine. They are then appropriately positioned. 2 g Ancef was provided preoperatively. After appropriate positioning fluoroscopy was used to assist in obtaining fracture reduction in conjunction with manipulating the fracture table. After near- anatomic reduction the right lower extremity was then prepped and draped in standard sterile fashion. An appropriate timeout was performed and the site was marked and planned with the assistance of fluoroscopy. A proximal incision was made proximal to the greater trochanter which was gently carried through the abductor fascia. A guidewire was then inserted and evaluated under fluoroscopy to be centered in the femoral canal as well as at the tip of the greater trochanter. After adequate positioning of the guidewire, a reamer was used over the guidewire in order to open the canal for insertion of the short nail. A 10 x 125 degree was selected. This was then introduced over the guidewire and impacted in place under fluoroscopy to ensure appropriate positioning and depth. After this a trocar was placed for the femoral screw through the guide. In accordance with the positioning of the trocar, an incision was made laterally and then carried through the deep fascia to allow passage of the trocar to the bone. The trocar was then gently approximated to bone followed by introduction of a guidewire. This guidewire was then advanced into the femoral neck. AP and lateral views were checked to ensure appropriate positioning of the guidewire and the femoral neck. This was then advanced to near center center of the femoral head. After doing this the wire was measured to a 110. We then removed the inner liner of the trocar and inserted a reamer at the appropriate depth. We reamed under fluoroscopy to ensure appropriate positioning of the reamer and appropriate depth measurement. After this the 110 mm hip screw was selected and advanced over the guidewire again carefully checking on fluoroscopy to ensure that we advanced to the appropriate depth. Upon doing so, we then compressed the fracture through the hip screw. A proximal locking screw was placed in the superior nail. We then turned our attention to the distal interlocking screw. A trocar was advanced through the guide and an incision was made with the appropriate position and carried again through the deep fascia. This trocar was then introduced to the bone. Under fluoroscopy the distal interlock was drilled and the depth was measured. The appropriate length screw was then inserted and ensured to be in good position on both AP and lateral views. After this the guides were then removed and final fluoroscopy was taken. The wounds were then copiously irrigated with sterile saline solution with dilute Betadine. 0 Vicryl was used to close the fascia followed by inverted interrupted 2-0 Monocryl in the subcutaneous tissue followed by rishi superficially. Sterile dressings were then placed the patient was then awakened from anesthesia and transferred to PACU in stable condition.
--- NOTE | 2020-01-15 12:48 | Progress Note ---
Provider Note Provider Note: Patient received a right cephalomedullary nail. They may be returned to weightbearing as tolerated encouraged to get out of bed with physical therapy. The Osullivan may be removed. Dressing changes as needed if saturated DVT prophylaxis to the discretion of the hospitalist service. I would suggest full dose aspirin daily x6 weeks.
[2020-01-15] MEDS ORDERED: FENTANYL CITRATE INJ/PF 100 MCG/2 ML AMPUL IV ONE (13:19)
[2020-01-15] MEDS ORDERED: CEFAZOLIN 2 GM/D5W RTU 2 GM/50 ML RTUPB IV SCH (14:00)
--- NOTE | 2020-01-15 14:18 | RADIOLOGY REPORT (SQ) ---
EXAM DESCRIPTION: HIP RIGHT AP/LATERAL IMAGES COMPLETED DATE/TIME: 01/15/2020 1:41 pm REASON FOR STUDY: Postop COMPARISON: 01/15/2020 NUMBER OF VIEWS: Two views. TECHNIQUE: AP pelvis and additional frog legview of the right hip. LIMITATIONS: None. FINDINGS: New right hip arthroplasty in good position. Pre-existing left hip arthroplasty. IMPRESSION: Right hip arthroplasty. Refer to operative note for further information. TECHNICAL DOCUMENTATION: JOB ID: [id number] 2010 [employer]- All Rights Reserved Reading location - IP/workstation name: [email or web address]
--- NOTE | 2020-01-15 14:20 | RADIOLOGY REPORT (SQ) ---
EXAM DESCRIPTION: NO CHG FLUORO; HIP RIGHT AP/LATERAL IMAGES COMPLETED DATE/TIME: 01/15/2020 1:56 pm REASON FOR STUDY: ORIF RIGHT HIP ASSISTED WITH FLUORO IN OR COMPARISON: None. FLUOROSCOPY TIME: 0.8 minutes 6 Images saved to PACS LIMITATIONS: None. PROCEDURE: ORIF right hip FINDINGS: Images from fluoro document the procedure. IMPRESSION: ORIF right hip. Refer to operative note for further information. COMMENT: PQRS 6045F: Fluoroscopy time of the procedure is documented in the report. TECHNICAL DOCUMENTATION: JOB ID: [id number] 2010 [employer] All Rights Reserved Reading location - IP/workstation name: [email or web address]
--- NOTE | 2020-01-15 14:20 | RADIOLOGY REPORT (SQ) ---
EXAM DESCRIPTION: NO CHG FLUORO; HIP RIGHT AP/LATERAL IMAGES COMPLETED DATE/TIME: 01/15/2020 1:56 pm REASON FOR STUDY: ORIF RIGHT HIP ASSISTED WITH FLUORO IN OR COMPARISON: None. FLUOROSCOPY TIME: 0.8 minutes 6 Images saved to PACS LIMITATIONS: None. PROCEDURE: ORIF right hip FINDINGS: Images from fluoro document the procedure. IMPRESSION: ORIF right hip. Refer to operative note for further information. COMMENT: PQRS 6045F: Fluoroscopy time of the procedure is documented in the report. TECHNICAL DOCUMENTATION: JOB ID: [id number] 2010 [employer]- All Rights Reserved Reading location - IP/workstation name: [email or web address]
[2020-01-15] MEDS ORDERED: CEFAZOLIN SODIUM 2 GM in DEXTROSE 5%-WATER 100 ML IV SCH (18:00)
--- NOTE | 2020-01-15 18:30 | PDOC PROGRESS REPORT ---
Subjective Progress Note for:: 01/15/20 Subjective:: CHRISTY SOW is a 84 year old female who presented to the emergency room with acute right hip pain. She admits tripping and falling while walking with her walker earlier today, experiencing immediate severe sharp grating pain in the right hip worsened by movement. Her pain is associated with nausea with vomiting. She denies other associated or accompanying signs and symptoms. She admits a prior similar episode with a left hip fracture 2 years ago. She has not identified any additional aggravating or ameliorating factors for her right hip pain. In the emergency room she was found to have a minimally displaced intertrochanteric fracture of the right femur. She was subsequently admitted to the hospitalist service with consultation to Dr. Delgado for orthopedic care. D2 hospital stay. 01/14/20. She was seen and examined at bedside. right hip pain is very minimal and only during movements. she denies any chest pain, SOB, palpitations. I have confirmed with her daughter that she is not on any chronic medications for chronic illnesses. Per Dr. Delgado, plan to do ORIF tomorrow. NPO at midnight D3 hospital stay. 01/15/20. She was seen and examined at bedside prior to OR. She denied any new neurologic deficit. She apparently had an episode of c onfusion last night. MRI brain was done which showed acute ischemia of the right cerebellar hemisphere 6 to 8 hours old. Acute to subacute small ischemic focus right putamen. This is likely the cause of her fall resulting to her right intertrochanteric fracture. She does not have any measurable neurologic deficit and her mental status is back at baseline. She was able to proceed with her ORIF. Stroke order set used stroke work-up ongoing. She will be started on full dose aspirin both for stroke and for DVT prophylaxis after orthopedic surgery. Carotid Doppler ultrasound and echo scheduled for tomorrow. Reason For Visit: INTERTROCHANTERIC FRACTURE OF RIGHT FEMUR Physical Exam Vital Signs: Temp Pulse Resp BP Pulse Ox 97.8 F 90 17 139/93 H 99 01/15/20 14:31 01/15/20 16:00 01/15/20 16:00 01/15/20 16:00 01/15/20 16:00 Intake & Output 01/14/20 01/15/20 01/16/20 06:59 06:59 06:59 Intake Total 60 1260 2209 Output Total 350 725 325 Balance -086 146 6344 Weight 78.5 kg 78.5 kg General appearance: PRESENT: no acute distress, cooperative Head exam: PRESENT: atraumatic, normocephalic Eye exam: PRESENT: EOMI, PERRLA Mouth exam: PRESENT: moist Neck exam: PRESENT: full ROM Respiratory exam: PRESENT: clear to auscultation dorina, symmetrical, unlabored Cardiovascular exam: PRESENT: RRR, +S1, +S2 GI/Abdominal exam: PRESENT: normal bowel sounds, soft. ABSENT: rebound, tenderness Extremities exam: PRESENT: other - Limited range of motion right hip secondary to intertrochanteric fracture Musculoskeletal exam: PRESENT: tenderness - Right hip Neurological exam: PRESENT: alert, awake, oriented to person, oriented to place, oriented to time, CN II-XII grossly intact, motor sensory deficit Psychiatric exam: PRESENT: normal mood Skin exam: PRESENT: normal color Results Laboratory Results: 01/14/20 04:31 01/14/20 04:31 Impressions: Cervical Spine CT 01/13/20 20:37 IMPRESSION: No acute findings in the cervical spine. Head CT 01/13/20 20:37 IMPRESSION: No acute intracranial abnormality. EXAM DESCRIPTION: CLINICAL HISTORY: fall, eval trauma COMPARISON: None FINDINGS: 2 view(s) submitted. There is a moderate knee joint effusion. There is genu valgus with lateral femoral tibial joint space narrowing. Osteophytic formation involves the lateral tibial plateau. There is mild to moderate medial femorotibial joint space loss. No fracture or dislocation is identified. Bone marrow attenuation is unremarkable. No radiopaque foreign body is identified. IMPRESSION: Degenerative changes. No acute fracture or dislocation. Knee X-Ray 01/13/20 20:37 IMPRESSION: No acute intracranial abnormality. EXAM DESCRIPTION: CLINICAL HISTORY: fall, eval trauma COMPARISON: None FINDINGS: 2 view(s) submitted. There is a moderate knee joint effusion. There is genu valgus with lateral femoral tibial joint space narrowing. Osteophytic formation involves the lateral tibial plateau. There is mild to moderate medial femorotibial joint space loss. No fracture or dislocation is identified. Bone marrow attenuation is unremarkable. No radiopaque foreign body is identified. IMPRESSION: Degenerative changes. No acute fracture or dislocation. Chest X-Ray 01/14/20 00:00 IMPRESSION: Stable hiatal hernia. No acute findings. Head MRI 01/14/20 00:00 IMPRESSION: Findings are consistent with acute ischemia of the right cerebellar hemisphere likely at least 6 to eight hours old given mildly increased FLAIR signal. Sequela of additional ischemic insult elsewhere. Acute to subacute small ischemic focus of the right putamen. See additional findings above. Fluoroscopy 01/15/20 00:00 IMPRESSION: ORIF right hip. Refer to operative note for further information. Hip/Pelvis X-Ray 01/15/20 00:00 IMPRESSION: ORIF right hip. Refer to operative note for further information. Assessment and Plan - Diagnosis (1) CVA (cerebral vascular accident) Qualifiers: CVA mechanism: thrombosis Laterality of affected vessel: right Is this a current diagnosis for this admission?: Yes Plan: -Patient came in due to a fall, also had a brief episode of confusion last night. -MRI brain showed acute ischemia of the right cerebellar hemisphere likely at least 6 to 8 hours old. Acute to subacute small ischemic focus of the right putamen. -NIH score 2 -Not a candidate for TPA -Minimal neurologic deficit, unable to assess strength of right lower limb secondary to intertrochanteric fracture but I suspect this might be the cause of her fall and subsequent fracture. -Drug order set used -Started on aspirin full dose both for stroke and DVT prophylaxis following orthopedic surgery -High-dose statin -Blood pressure acceptable right now 139/93. Permissive hypertension 48 hours post stroke,will not treat unless blood pressure more than 205/110. will start on antihypertensive medications blood pressure goal less than 130/80 after permissive hypertension -Panel and A1c ordered -Carotid Doppler ultrasound and echo with bubble study pending -PT OT consulted -Would likely need acute rehab (2) Intertrochanteric fracture of right femur Qualifiers: Encounter type: initial encounter Fracture type: closed Fracture alignment: displaced Qualified Code(s): S72.141A - Displaced intertrochanteric fracture of right femur, initial encounter for closed fracture Is this a current diagnosis for this admission?: Yes Plan: -Status post ORIF day 0 - XR hip showed right hip intertrochanteric fracture -Full dose aspirin for DVT prophylaxis -Weightbearing as Dr. Altamirano instructed -Osullivan catheter removed, bladder scan ordered -Dilaudid IV for pain. We will switch to oral tomorrow. -Lidocaine patch and heating pads ordered -PT/OT for postop assessment - will likely need acute rehab (3) Acute right hip pain Is this a current diagnosis for this admission?: Yes Plan: - 2/2 to right hip fracture -dilaudid IV for severe pain - heat pack and lidocaine patch (4) Crohn's disease in remission Is this a current diagnosis for this admission?: Yes (5) DVT prophylaxis Is this a current diagnosis for this admission?: Yes Plan: - aspirin (6) WILLIAM (acute kidney injury) Is this a current diagnosis for this admission?: Yes Plan: -Creatinine 1.74 from 1.1 likely secondary from poor oral intake due to n.p.o. status -Continue IV fluids -monitor Creatinine (7) Hyponatremia Is this a current diagnosis for this admission?: Yes Plan: -Mild 133.8 -We will continue to monitor - Plan Summary Summary: . - Time Time Spent with patient: 35 or more minutes Anticipated Discharge Disposition: Long-Term Facility Anticipated Discharge Timeframe: within 48 hours
[2020-01-15] MEDS: ASPIRIN 325 MG TABLET PO SCH (18:33)
[2020-01-15] MEDS: DEXTROSE 5%-LACTATED RINGERS 1,000 ML IV PRN (19:34)
[2020-01-15] MEDS: CEFAZOLIN SODIUM 2 GM in DEXTROSE 5%-WATER 100 ML IV SCH (22:00)
[2020-01-15] MEDS: LIDOCAINE 5% (700 MG) TRANSDERMAL ADH..PATCH TP SCH (22:00)
[2020-01-15] MEDS: ATORVASTATIN CALCIUM 80 MG TABLET PO SCH (22:00)
[2020-01-16] MEDS: DEXTROSE 5%-LACTATED RINGERS 1,000 ML IV PRN (02:00)
[2020-01-16] MEDS: CEFAZOLIN SODIUM 2 GM in DEXTROSE 5%-WATER 100 ML IV SCH ×2 (06:28→15:13)
[2020-01-16 07:15] LABS: CHOLESTEROL 163.59 mg/dL (0-200); TRIGLYCERIDES 134 mg/dL (<150)
[2020-01-16 07:27] LABS: DIRECT LDL 79 mg/dL (<100)
[2020-01-16] MEDS ORDERED: GLUCAGON,HUMAN RECOMB 1 MG INJ IM PRN (08:02)
[2020-01-16] MEDS ORDERED: DEXTROSE 40% GEL 15 GM TUBE PO PRN ×2 (08:02)
[2020-01-16] MEDS ORDERED: DEXTROSE 50%-WATER 25 GM/50 ML DISP.SYRIN IV PRN ×2 (08:02)
--- NOTE | 2020-01-16 08:09 | PDOC PROGRESS REPORT ---
Subjective Progress Note for:: 01/16/20 Subjective:: Patient is doing well this AM. Pain is well controlled. No symptoms overnight. Reason For Visit: INTERTROCHANTERIC FRACTURE OF RIGHT FEMUR Physical Exam Vital Signs: Temp Pulse Resp BP Pulse Ox 97.7 F 75 16 127/90 H 99 01/16/20 03:59 01/16/20 07:00 01/16/20 04:00 01/16/20 04:00 01/16/20 04:00 Intake & Output 01/15/20 01/16/20 01/17/20 06:59 06:59 06:59 Intake Total 2260 3434 Output Total 725 1525 Balance 1535 1909 Weight 78.5 kg 83.6 kg Physical Exam: No acute distress, alert and oriented x3 Right lower extremity -Pulses 2+ distally -Compartments soft -Sensation grossly intact to L3-4-5 S1 -Motor grossly intact to EHL TA gastroc and quad Wounds clean dry and intact. Results Laboratory Results: 01/14/20 04:31 01/14/20 04:31 01/16/20 06:00 Triglycerides 134 Cholesterol 163.59 LDL Cholesterol Direct 79 VLDL Cholesterol 27.0 HDL Cholesterol 43 Impressions: Cervical Spine CT 01/13/20 20:37 IMPRESSION: No acute findings in the cervical spine. Head CT 01/13/20 20:37 IMPRESSION: No acute intracranial abnormality. EXAM DESCRIPTION: CLINICAL HISTORY: fall, eval trauma COMPARISON: None FINDINGS: 2 view(s) submitted. There is a moderate knee joint effusion. There is genu valgus with lateral femoral tibial joint space narrowing. Osteophytic formation involves the lateral tibial plateau. There is mild to moderate medial femorotibial joint space loss. No fracture or dislocation is identified. Bone marrow attenuation is unremarkable. No radiopaque foreign body is identified. IMPRESSION: Degenerative changes. No acute fracture or dislocation. Knee X-Ray 01/13/20 20:37 IMPRESSION: No acute intracranial abnormality. EXAM DESCRIPTION: CLINICAL HISTORY: fall, eval trauma COMPARISON: None FINDINGS: 2 view(s) submitted. There is a moderate knee joint effusion. There is genu valgus with lateral femoral tibial joint space narrowing. Osteophytic formation involves the lateral tibial plateau. There is mild to moderate medial femorotibial joint space loss. No fracture or dislocation is identified. Bone marrow attenuation is unremarkable. No radiopaque foreign body is identified. IMPRESSION: Degenerative changes. No acute fracture or dislocation. Chest X-Ray 01/14/20 00:00 IMPRESSION: Stable hiatal hernia. No acute findings. Head MRI 01/14/20 00: IMPRESSION: Findings are consistent with acute ischemia of the right cerebellar hemisphere likely at least 6 to eight hours old given mildly increased FLAIR signal. Sequela of additional ischemic insult elsewhere. Acute to subacute small ischemic focus of the right putamen. See additional findings above. Fluoroscopy 01/15/20 00: IMPRESSION: ORIF right hip. Refer to operative note for further information. Hip/Pelvis X-Ray 01/15/20: IMPRESSION: ORIF right hip. Refer to operative note for further information. Assessment & Plan - Diagnosis (1) Intertrochanteric fracture of right femur Qualifiers: Encounter type: initial encounter Fracture type: closed Fracture alignment: displaced Qualified Code(s): S72.141A - Displaced intertrochanteric fracture of right femur, initial encounter for closed fracture Is this a current diagnosis for this admission?: Yes Plan: -- 2 doses of Ancef postoperatively q 8 hours to complete 24 hours perio peratively -Weightbearing as tolerated, no precautions, encourage out of bed LUISA for ADL training - PT/OT -aspirin 325 daily for DVT prophylaxis for 6 weeks -multimodal pain management to avoid excessive narcotics, including gabapentin, tramadol, Toradol, acetaminophen. -Dressing should not be removed for 7 to 10 days until seen in the office -May shower with the dressing intact, if it starts to come off she should not get the incision wet. -Follow-up with Dr. Ulises Altamirano, orthopedic surgeon at [facility] for surgery, in 10 days. Call for an appointment. . [address], [place] [address] - Time Time Spent with patient: Less than 15 minutes
[2020-01-16 08:33] LABS: ALBUMIN 2.8 g/dL (3.5-5.0); ALKALINE PHOSPHATASE 55 U/L (38-126); ANION GAP 7 (5-19); ASPARTATE AMINO TRANSFERASE 25 U/L (14-36); BILIRUBIN,DIRECT 0.2 mg/dL (0.0-0.4); BILIRUBIN,TOTAL 0.6 mg/dL (0.2-1.3); BLOOD UREA NITROGEN 19 mg/dL (7-20); CALCIUM 8.6 mg/dL (8.4-10.2); CARBON DIOXIDE 25 mmol/L (22-30); CHLORIDE 104 mmol/L (98-107); GLUCOSE 167 mg/dL (75-110); POTASSIUM 3.2 mmol/L (3.6-5.0); TOTAL PROTEIN 5.5 g/dL (6.3-8.2)
[2020-01-16 08:40] LABS: ABSOLUTE MONOCYTES (AUTO) 0.9 10^3/uL (0.1-1.4); ABSOLUTE NEUT (AUTO) 5.6 10^3/uL (1.7-8.2); BASOPHILS % (AUTO) 0.3 % (0-2); EOSINOPHILS % (AUTO) 0.1 % (0-6); HEMATOCRIT 28.9 % (36.0-47.0); LYMPHOCYTES % (AUTO) 13.2 % (13-45); MEAN CORPUSCULAR HEMOGLOBIN 32.8 pg (27.0-33.4); MEAN CORPUSCULAR HGB CONC 35.1 g/dL (32.0-36.0); MEAN CORPUSCULAR VOLUME 93 fl (80-97); MONOCYTES % (AUTO) 12.4 % (3-13); PLATELET COUNT 129 10^3/uL (150-450); RED CELL DISTRIBUTION WIDTH 13.2 % (11.5-14.0); TOTAL CELLS COUNTED % (AUTO) 100 %; WHITE BLOOD COUNT 7.5 10^3/uL (4.0-10.5)
[2020-01-16 08:44] LABS: HEMOGLOBIN 10.1 g/dL (12.0-15.5)
[2020-01-16] MEDS: ASPIRIN 325 MG TABLET PO SCH (09:54)
[2020-01-16] MEDS: FAMOTIDINE INJ/PF 20 MG/2 ML SDV IV SCH ×2 (09:55→21:37)
[2020-01-16] MEDS: INSULIN LISPRO 100 UNIT/ML 3 ML VIAL SUBCUT SCH ×3 (11:26→22:57)
[2020-01-16] MEDS ORDERED: POTASSIUM CHLORIDE 10 MEQ TABLET.ER PO ONE (15:30)
--- NOTE | 2020-01-16 16:07 | RADIOLOGY REPORT (SQ) ---
EXAM DESCRIPTION: CAROTID DOPPLER IMAGES COMPLETED DATE/TIME: 01/16/2020 3:59 pm REASON FOR STUDY: stroke COMPARISON: None. TECHNIQUE: Grayscale ultrasound, Doppler velocity and spectra, and color Doppler images acquired of the extra-cranial carotid and vertebral arteries. Images stored on PACS. LIMITATIONS: None. FINDINGS: RIGHT CAROTID CCA Velocities: Within normal limits. ICA Velocities Peak systolic 1.08 m/s. End diastolic 0.28 m/s. Proximal ICA/CCA peak systolic ratio 2.0. Plaque in the internal carotid artery. LEFT CAROTID CCA Velocities: Within normal limits. ICA Velocities Peak systolic 0.73 m/s. End diastolic 0.26 m/s. Proximal ICA/CCA peak systolic ratio 1.06. Plaque in the internal carotid artery. VERTEBRAL ARTERIES: Antegrade flow. Normal waveforms. SUBCLAVIAN ARTERIES: No finding. OTHER: No other significant finding. IMPRESSION: NO HEMODYNAMICALLY SIGNIFICANT STENOSIS. COMMENT: Quality ID #[id number]: Velocity criteria are extrapolated from the diameter data as defined by t he Society of Radiologists in Ultrasound Consensus Conference. Radiology 2003: 229; 340-346. TECHNICAL DOCUMENTATION: JOB ID: [id number] [address]- All Rights Reserved Reading location - IP/workstation name: [email or web address]
--- NOTE | 2020-01-16 18:04 | PDOC PROGRESS REPORT ---
Subjective Progress Note for:: 01/16/20 Subjective:: CHRISTY SOW is a 84 year old female who presented to the emergency room with acute right hip pain. She admits tripping and falling while walking with her walker earlier today, experiencing immediate severe sharp grating pain in the right hip worsened by movement. Her pain is associated with nausea with vomiting. She denies other associated or accompanying signs and symptoms. She admits a prior similar episode with a left hip fracture 2 years ago. She has not identified any additional aggravating or ameliorating factors for her right hip pain. In the emergency room she was found to have a minimally displaced intertrochanteric fracture of the right femur. She was subsequently admitted to the hospitalist service with consultation to Dr. Delgado for orthopedic care. D2 hospital stay. 01/14/20. She was seen and examined at bedside. right hip pain is very minimal and only during movements. she denies any chest pain, SOB, palpitations. I have confirmed with her daughter that she is not on any chronic medications for chronic illnesses. Per Dr. Delgado, plan to do ORIF tomorrow. NPO at midnight D3 hospital stay. 01/15/20. She was seen and examined at bedside prior to OR. She denied any new neurologic deficit. She apparently had an episode of c onfusion last night. MRI brain was done which showed acute ischemia of the right cerebellar hemisphere 6 to 8 hours old. Acute to subacute small ischemic focus right putamen. This is likely the cause of her fall resulting to her right intertrochanteric fracture. She does not have any measurable neurologic deficit and her mental status is back at baseline. She was able to proceed with her ORIF. Stroke order set used stroke work-up ongoing. She will be started on full dose aspirin both for stroke and for DVT prophylaxis after orthopedic surgery. Carotid Doppler ultrasound and echo scheduled for tomorrow. D4 hospital stay 01/16/20. She was seen and examined at bedside day 1 post ORIF. She reports minimal postop pain, she urinates spontaneously. She was able to work with physical therapy but was unable to ambulate fully due to pain. Physical therapy is recommending acute rehab. Carotid ultrasound showed no significant stenosis. Echo pending. She is on full dose aspirin for DVT prophylaxis. Reason For Visit: INTERTROCHANTERIC FRACTURE OF RIGHT FEMUR Physical Exam Vital Signs: Temp Pulse Resp BP Pulse Ox 97.5 F 76 18 177/67 H 98 01/16/20 15:49 01/16/20 15:49 01/16/20 15:49 01/16/20 15:49 01/16/20 15:49 Intake & Output 01/15/20 01/16/20 01/17/20 06:59 06:59 06:59 Intake Total 2260 3434 1820 Output Total 725 1525 Balance 1535 1909 1820 Weight 78.5 kg 83.6 kg General appearance: PRESENT: no acute distress, cooperative Head exam: PRESENT: atraumatic, normocephalic Eye exam: PRESENT: EOMI, PERRLA Mouth exam: PRESENT: moist Neck exam: PRESENT: full ROM Respiratory exam: PRESENT: clear to auscultation dorina, symmetrical, unlabored Cardiovascular exam: PRESENT: RRR, +S1, +S2 Pulses: PRESENT: +2 pedal pulses bilateral GI/Abdominal exam: PRESENT: normal bowel sounds, soft. ABSENT: rebound, tenderness Extremities exam: PRESENT: other - Limited range of motion right hip Musculoskeletal exam: PRESENT: ambulatory Neurological exam: PRESENT: alert, awake, oriented to person, oriented to place, oriented to time, oriented to situation Psychiatric exam: PRESENT: normal mood Results Laboratory Results: 01/16/20 06:00 01/16/20 06:00 01/16/20 01/16/20 01/16/20 06:00 06:00 06:00 WBC 7.5 RBC 3.10 L Hgb 10.1 L D Hct 28.9 L MCV 93 MCH 32.8 MCHC 35.1 RDW 13.2 Plt Count 129 L Seg Neutrophils % 74.0 Sodium 136.1 L Potassium 3.2 L Chloride 104 Carbon Dioxide 25 Anion Gap 7 BUN 19 Creatinine 0.96 Est GFR ( Amer) > 60 Glucose 167 H Calcium 8.6 Total Bilirubin 0.6 AST 25 Alkaline Phosphatase 55 Total Protein 5.5 L Albumin 2.8 L Triglycerides 134 Cholesterol 163.59 LDL Cholesterol Direct 79 VLDL Cholesterol 27.0 HDL Cholesterol 43 Impressions: Cervical Spine CT 01/13/20 20:37 IMPRESSION: No acute findings in the cervical spine. Head CT 01/13/20 20:37 IMPRESSION: No acute intracranial abnormality. EXAM DESCRIPTION: CLINICAL HISTORY: fall, eval trauma COMPARISON: None FINDINGS: 2 view(s) submitted. There is a moderate knee joint effusion. There is genu valgus with lateral femoral tibial joint space narrowing. Osteophytic formation involves the lateral tibial plateau. There is mild to moderate medial femorotibial joint space loss. No fracture or dislocation is identified. Bone marrow attenuation is unremarkable. No radiopaque foreign body is identified. IMPRESSION: Degenerative changes. No acute fracture or dislocation. Knee X-Ray 01/13/20 20:37 IMPRESSION: No acute intracranial abnormality. EXAM DESCRIPTION: CLINICAL HISTORY: fall, eval trauma COMPARISON: None FINDINGS: 2 view(s) submitted. There is a moderate knee joint effusion. There is genu valgus with lateral femoral tibial joint space narrowing. Osteophytic formation involves the lateral tibial plateau. There is mild to moderate medial femorotibial joint space loss. No fracture or dislocation is identified. Bone marrow attenuation is unremarkable. No radiopaque foreign body is identified. IMPRESSION: Degenerative changes. No acute fracture or dislocation. Chest X-Ray 01/14/20 00:00 IMPRESSION: Stable hiatal hernia. No acute findings. Head MRI 01/14/20 00:00 IMPRESSION: Findings are consistent with acute ischemia of the right cerebellar hemisphere likely at least 6 to eight hours old given mildly increased FLAIR signal. Sequela of additional ischemic insult elsewhere. Acute to subacute small ischemic focus of the right putamen. See additional findings above. Fluoroscopy 01/15/20 00:00 IMPRESSION: ORIF right hip. Refer to operative note for further information. Hip/Pelvis X-Ray 01/15/20 00:00 IMPRESSION: ORIF right hip. Refer to operative note for further information. Carotid Doppler Study 01/16/20 00:00 IMPRESSION: NO HEMODYNAMICALLY SIGNIFICANT STENOSIS. Assessment and Plan - Diagnosis (1) CVA (cerebral vascular accident) Qualifiers: CVA mechanism: thrombosis Laterality of affected vessel: right Is this a current diagnosis for this admission?: Yes Plan: -Patient came in due to a fall, also had a brief episode of confusion last night. -MRI brain showed acute ischemia of the right cerebellar hemisphere likely at least 6 to 8 hours old. Acute to subacute small ischemic focus of the right putamen. -NIH score 2 -Not a candidate for TPA -Minimal neurologic deficit, unable to assess strength of right lower limb secondary to intertrochanteric fracture but I suspect this might be the cause of her fall and subsequent fracture. -stroke order set used -A1c 6.1 pre diabetes - Lipid panel LDL 79, TC 163 - carotid doppler negative -aspirin 325 full dose both for stroke and DVT prophylaxis following orthopedic surgery -High-dose statin -started on Losartan - echo with bubble study pending -PT OT consulted -Would likely need acute rehab (2) Acute right hip pain Is this a current diagnosis for this admission?: Yes (3) Intertrochanteric fracture of right femur Qualifiers: Encounter type: initial encounter Fracture type: closed Fracture alignment: displaced Qualified Code(s): S72.141A - Displaced intertrochanteric fracture of right femur, initial encounter for closed fracture Is this a current diagnosis for this admission?: Yes Plan: -Status post ORIF day 2 - XR hip showed right hip intertrochanteric fracture -Full dose aspirin for DVT prophylaxis -Weightbearing as Dr. Altamirano instructed -Osullivan catheter removed voiding spontaneously -norco for pain -Lidocaine patch and heating pads ordered -PT/OT recommending acute rehab awaiting placement (4) Crohn's disease in remission Is this a current diagnosis for this admission?: Yes (5) WILLIAM (acute kidney injury) Is this a current diagnosis for this admission?: Yes Plan: -Creatinine 1.74 from 1.1 likely secondary from poor oral intake due to n.p.o. status -Continue IV fluids -monitor Creatinine (6) Hyponatremia Is this a current diagnosis for this admission?: Yes Plan: -Mild 133.8 -We will continue to monitor (7) HTN (hypertension) Qualifiers: Hypertension type: essential hypertension Qualified Code(s): I10 - Essential (primary) hypertension Is this a current diagnosis for this admission?: Yes Plan: - started on losartan BP goal <130/80 (8) Prediabetes Is this a current diagnosis for this admission?: Yes Plan: -A1C 6.1 - will start on metformin after discharge (9) DVT prophylaxis Is this a current diagnosis for this admission?: Yes Plan: - aspirin 325 for 6 weeks then decrease to 81 mg daily indefinitely for stroke - Time Time Spent with patient: 25-34 minutes Anticipated Discharge Disposition: Care Home Facility Anticipated Discharge Timeframe: within 48 hours
--- NOTE | 2020-01-16 20:25 | XCELERA REPORT ---
[address] [address] Transthoracic Echocardiogram Report Name: CHRISTY SOW Age: 84 yrs Gender: Female : 1935 Patient Status: Inpatient Patient Location: [facility]^A Study Date: 01/16/2020 02:12 PM History: JAMAL Height: 63 in Weight: 173 lb BSA: 1.8 m2 Procedure: A complete two-dimensional transthoracic echocardiogram was performed (2D, M-mode, spectral and color flow Doppler). The study was technically difficult with many images being suboptimal in quality. Reason For Study: stroke. w/ bubble study please Previous Evaluation: No previous studies were available. History: CVA. Ordering Physician: JOSE MIGUEL CHUA Performed By: Ruthann Geller Interpretation Summary The study was technically difficult with many images being suboptimal in quality. Left ventricular systolic function is normal. The Ejection Fraction estimate is 55-60% The right ventricle is normal in size and function. There is a mild amount of mitral regurgitation There is mild aortic stenosis There is a mild amount of aortic regurgitation There is a mild amount of tricuspid regurgitation There is mild pulmonary hypertension by echo Injection of contrast documented no interatrial shunt. There is no pericardial effusion. MMode/2D Measurements & Calculations RVDd: 2.1 cm LVIDd: 4.4 cm FS: 45.3 % Ao root diam: 2.7 cm IVSd: 0.96 cm LVIDs: 2.4 cm EDV(Teich): 88.3 ml Ao root area: 5.7 cm2 LVPWd: 0.96 cm ESV(Teich): 20.4 ml LA dimension: 2.9 cm EF(Teich): 76.9 % LVOT diam: 2.0 cm LVOT area: 3.1 cm2 Doppler Measurements & Calculations MV E max janet: MV P1/2t max janet: Ao V2 max: AI max janet: 109.8 cm/sec 111.1 cm/sec 284.9 cm/sec 472.5 cm/sec MV A max janet: MV P1/2t: 101.6 msec Ao max PG: AI max P.3 cm/sec MVA(P1/2t): 2.2 cm2 32.5 mmHg 89.3 mmHg MV E/A: 0.64 MV dec slope: Ao V2 mean: AI dec slope: 182.1 cm/sec 284.8 cm/sec2 320.1 cm/sec2 Ao mean PG: AI P1/2t: MV dec time: 0.33 sec16.1 mmHg 485.9 msec Ao V2 VTI: 54.5 cm TIRSO(I,D): 1.4 cm2 TIRSO(V,D): 1.5 cm2 LV V1 max PG: SV(LVOT): 75.0 ml PA V2 max: TR max janet: 7.0 mmHg 130.2 cm/sec 274.2 cm/sec LV V1 mean PG: PA max PG: TR max P.6 mmHg 6.8 mmHg 30.1 mmHg LV V1 max: 132.0 cm/sec LV V1 mean: 89.4 cm/sec LV V1 VTI: 23.9 cm AV P1/2t-pr_phl: MV P1/2t-pr_phl: 485.9 msec 101.6 msec Left Ventricle The left ventricle is normal in size. There is mild concentric left ventricular hypertrophy. Left ventricular systolic function is normal. The Ejection Fraction estimate is 55-60%. Doppler measurements suggest impaired left ventricular relaxation, which is associated with grade I/IV or mild diastolic dysfunction. Regional wall motion abnormalities cannot be excluded due to limited visualization. There is no thrombus. Right Ventricle The right ventricle is normal in size and function. Atria The right atrium is normal. The left atrium is borderline dilated. The interatrial septum is intact with no evidence for an atrial septal defect. There is no Doppler evidence for an interatrial shunt. Injection of contrast documented no interatrial shunt. Mitral Valve There is mild mitral leaflet calcification. There is mild mitral annular calcification. The mitral valve leaflets appear thickened, but open well. There is no mitral valve stenosis. There is a mild amount of mitral regurgitation. Aortic Valve The aortic valve is mildly calcified. The aortic valve is sclerotic and shows some degree of functional abnormality. There is mild aortic stenosis. There is a peak gradient of 33 mm of Hg. AoV=2.86 m/s Mean PG=16 mm Hg TIRSO (VTI)=1.39 cm 2. There is a mild amount of aortic regurgitation. Tricuspid Valve The tricuspid valve is normal in structure and function. There is no tricuspid stenosis. There is a mild amount of tricuspid regurgitation. Best estimated right ventricular systolic pressure is elevated at 30-40mmHg. There is mild pulmonary hypertension by echo. Pulmonic Valve The pulmonic valve is normal in structure and function. There is no pulmonic valvular stenosis. There is a trace amount of pulmonic regurgitation. Great Vessels The aortic root is normal size. The inferior vena cava appeared normal and decreased > 50% with respiration (RAP 5-10 mmHg). Effusions There is no pericardial effusion. : JOSE MIGUEL CHUA Anil
[2020-01-16] MEDS: ATORVASTATIN CALCIUM 80 MG TABLET PO SCH (21:27)
[2020-01-16] MEDS: LOSARTAN POTASSIUM 50 MG TABLET PO SCH (21:37)
[2020-01-16] MEDS: LIDOCAINE 5% (700 MG) TRANSDERMAL ADH..PATCH TP SCH (23:12)
[2020-01-17] MEDS: DEXTROSE 5%-LACTATED RINGERS 1,000 ML IV PRN (05:59)
--- NOTE | 2020-01-17 09:06 | PDOC PROGRESS REPORT ---
Subjective Progress Note for:: 01/17/20 Subjective:: Patient is doing well. No acute vents overnight. Has difficulty walking with physical therapy due to pain but otherwise reports good pain control. Reason For Visit: INTERTROCHANTERIC FRACTURE OF RIGHT FEMUR Physical Exam Vital Signs: Temp Pulse Resp BP Pulse Ox 97.5 F 83 20 141/63 H 96 01/17/20 08:09 01/17/20 07:00 01/17/20 04:00 01/17/20 04:00 01/17/20 04:00 Intake & Output 01/16/20 01/17/20 01/18/20 06:59 06:59 05:59 Intake Total 3434 2340 Output Total 1525 2200 Balance 1909 140 Weight 83.6 kg 85.6 kg Physical Exam: No acute distress, alert and oriented x3 Right lower extremity -Pulses 2+ distally -Compartments soft -Sensation grossly intact to L3-4-5 S1 -Motor grossly intact to EHL TA gastroc and quad Dressing clean dry and intact Results Laboratory Results: 01/16/20 06:00 01/16/20 06:00 Impressions: Cervical Spine CT 01/13/20 20:37 IMPRESSION: No acute findings in the cervical spine. Head CT 01/13/20 20:37 IMPRESSION: No acute intracranial abnormality. EXAM DESCRIPTION: CLINICAL HISTORY: fall, eval trauma COMPARISON: None FINDINGS: 2 view(s) submitted. There is a moderate knee joint effusion. There is genu valgus with lateral femoral tibial joint space narrowing. Osteophytic formation involves the lateral tibial plateau. There is mild to moderate medial femorotibial joint space loss. No fracture or dislocation is identified. Bone marrow attenuation is unremarkable. No radiopaque foreign body is identified. IMPRESSION: Degenerative changes. No acute fracture or dislocation. Knee X-Ray 01/13/20 20:37 IMPRESSION: No acute intracranial abnormality. EXAM DESCRIPTION: CLINICAL HISTORY: fall, eval trauma COMPARISON: None FINDINGS: 2 view(s) submitted. There is a moderate knee joint effusion. There is genu valgus with lateral femoral tibial joint space narrowing. Osteophytic formation involves the lateral tibial plateau. There is mild to moderate medial femorotibial joint space loss. No fracture or dislocation is identified. Bone marrow attenuation is unremarkable. No radiopaque foreign body is identified. IMPRESSION: Degenerative changes. No acute fracture or dislocation. Chest X-Ray 01/14/20 00:00 IMPRESSION: Stable hiatal hernia. No acute findings. Head MRI 01/14/20 00:00 IMPRESSION: Findings are consistent with acute ischemia of the right cerebellar hemisphere likely at least 6 to eight hours old given mildly increased FLAIR signal. Sequela of additional ischemic insult elsewhere. Acute to subacute small ischemic focus of the right putamen. See additional findings above. Fluoroscopy 01/15/20 00:00 IMPRESSION: ORIF right hip. Refer to operative note for further information. Hip/Pelvis X-Ray 01/15/20 00: IMPRESSION: ORIF right hip. Refer to operative note for further information. Carotid Doppler Study 01/16/20 00:00 IMPRESSION: NO HEMODYNAMICALLY SIGNIFICANT STENOSIS. Assessment & Plan - Diagnosis (1) Intertrochanteric fracture of right femur Qualifiers: Encounter type: initial encounter Fracture type: closed Fracture alignment: displaced Qualified Code(s): S72.141A - Displaced intertrochanteric fracture of right femur, initial encounter for closed fracture Is this a current diagnosis for this admission?: Yes Plan: Encourage out of bed with physical therapy, weightbearing as tolerated Agree with trending daily for DVT prophylaxis Dressing changes as needed may cease dressing use after 10 days postop. Follow-up in my office in 10 to 14 days - Time Time Spent with patient: Less than 15 minutes
[2020-01-17] MEDS: INSULIN LISPRO 100 UNIT/ML 3 ML VIAL SUBCUT SCH ×4 (09:41→21:44)
[2020-01-17] MEDS: ASPIRIN 325 MG TABLET PO SCH (09:55)
[2020-01-17] MEDS: FAMOTIDINE INJ/PF 20 MG/2 ML SDV IV SCH ×2 (09:55→21:45)
[2020-01-17] MEDS: LOSARTAN POTASSIUM 50 MG TABLET PO SCH (09:55)
--- NOTE | 2020-01-17 13:46 | PDOC PROGRESS REPORT ---
Subjective Progress Note for:: 01/17/20 Subjective:: CHRISTY SOW is a 84 year old female who presented to the emergency room with acute right hip pain. She admits tripping and falling while walking with her walker earlier today, experiencing immediate severe sharp grating pain in the right hip worsened by movement. Her pain is associated with nausea with vomiting. She denies other associated or accompanying signs and symptoms. She admits a prior similar episode with a left hip fracture 2 years ago. She has not identified any additional aggravating or ameliorating factors for her right hip pain. In the emergency room she was found to have a minimally displaced intertrochanteric fracture of the right femur. She was subsequently admitted to the hospitalist service with consultation to Dr. Delgado for orthopedic care. D2 hospital stay. 01/14/20. She was seen and examined at bedside. right hip pain is very minimal and only during movements. she denies any chest pain, SOB, palpitations. I have confirmed with her daughter that she is not on any chronic medications for chronic illnesses. Per Dr. Delgado, plan to do ORIF tomorrow. NPO at midnight D3 hospital stay. 01/15/20. She was seen and examined at bedside prior to OR. She denied any new neurologic deficit. She apparently had an episode of c onfusion last night. MRI brain was done which showed acute ischemia of the right cerebellar hemisphere 6 to 8 hours old. Acute to subacute small ischemic focus right putamen. This is likely the cause of her fall resulting to her right intertrochanteric fracture. She does not have any measurable neurologic deficit and her mental status is back at baseline. She was able to proceed with her ORIF. Stroke order set used stroke work-up ongoing. She will be started on full dose aspirin both for stroke and for DVT prophylaxis after orthopedic surgery. Carotid Doppler ultrasound and echo scheduled for tomorrow. D4 hospital stay 01/16/20. She was seen and examined at bedside day 1 post ORIF. She reports minimal postop pain, she urinates spontaneously. She was able to work with physical therapy but was unable to ambulate fully due to pain. Physical therapy is recommending acute rehab. Carotid ultrasound showed no significant stenosis. Echo pending. She is on full dose aspirin for DVT prophylaxis. D5 hospital stay 01/17/20. She was seen and examined at bedside POD 2 ORIF. Able to stand with PT still not able to walk further. She denies any post op pain. She is incontinent of urine. Denies any fever, chest pain, SOB. DVT prophylaxis switched from aspirin to xarelto per literature this is preferred. Reason For Visit: INTERTROCHANTERIC FRACTURE OF RIGHT FEMUR Physical Exam Vital Signs: Temp Pulse Resp BP Pulse Ox 97.5 F 79 18 177/70 H 98 01/17/20 08:09 01/17/20 08:00 01/17/20 08:00 01/17/20 08:00 01/17/20 08:00 Intake & Output 01/16/20 01/17/20 01/18/20 06:59 06:59 05:59 Intake Total 3434 2340 871 Output Total 1525 2200 Balance 1909 140 871 Weight 83.6 kg 85.6 kg Results Laboratory Results: 01/16/20 06:00 01/16/20 06:00 Impressions: Cervical Spine CT 01/13/20 20:37 IMPRESSION: No acute findings in the cervical spine. Head CT 01/13/20 20:37 IMPRESSION: No acute intracranial abnormality. EXAM DESCRIPTION: CLINICAL HISTORY: fall, eval trauma COMPARISON: None FINDINGS: 2 view(s) submitted. There is a moderate knee joint effusion. There is genu valgus with lateral femoral tibial joint space narrowing. Osteophytic formation involves the lateral tibial plateau. There is mild to moderate medial femorotibial joint space loss. No fracture or dislocation is identified. Bone marrow attenuation is unremarkable. No radiopaque foreign body is identified. IMPRESSION: Degenerative changes. No acute fracture or dislocation. Knee X-Ray 01/13/20 20:37 IMPRESSION: No acute intracranial abnormality. EXAM DESCRIPTION: CLINICAL HISTORY: fall, eval trauma COMPARISON: None FINDINGS: 2 view(s) submitted. There is a moderate knee joint effusion. There is genu valgus with lateral femoral tibial joint space narrowing. Osteophytic formation involves the lateral tibial plateau. There is mild to moderate medial femorotibial joint space loss. No fracture or dislocation is identified. Bone marrow attenuation is unremarkable. No radiopaque foreign body is identified. IMPRESSION: Degenerative changes. No acute fracture or dislocation. Chest X-Ray 01/14/20 00:00 IMPRESSION: Stable hiatal hernia. No acute findings. Head MRI 01/14/20 00:00 IMPRESSION: Findings are consistent with acute ischemia of the right cerebellar hemisphere likely at least 6 to eight hours old given mildly increased FLAIR signal. Sequela of additional ischemic insult elsewhere. Acute to subacute small ischemic focus of the right putamen. See additional findings above. Fluoroscopy 01/15/20 00:00 IMPRESSION: ORIF right hip. Refer to operative note for further information. Hip/Pelvis X-Ray 01/15/20 00:00 IMPRESSION: ORIF right hip. Refer to operative note for further information. Carotid Doppler Study 01/16/20 00:00 IMPRESSION: NO HEMODYNAMICALLY SIGNIFICANT STENOSIS. Assessment and Plan - Diagnosis (1) CVA (cerebral vascular accident) Qualifiers: CVA mechanism: thrombosis Laterality of affected vessel: right Is this a current diagnosis for this admission?: Yes Plan: -Patient came in due to a fall, also had a brief episode of confusion last ni ght. -MRI brain showed acute ischemia of the right cerebellar hemisphere likely at least 6 to 8 hours old. Acute to subacute small ischemic focus of the right putamen. -NIH score 2 -Not a candidate for TPA -Minimal neurologic deficit, unable to assess strength of right lower limb secondary to intertrochanteric fracture but I suspect this might be the cause of her fall and subsequent fracture. -stroke order set used -A1c 6.1 pre diabetes - Lipid panel LDL 79, TC 163 - carotid doppler negative - echo with bubble study normal EF 55-60%, negative bubble study -on aspirin 81 mg for stroke and Xarelto for DVT prophylaxis. Xarelto duration 6 weeks post surgery. Should be stopped by Mar 03, 2020 -High-dose statin -started on Losartan -PT OT consulted -awaiting [facility] transfer (2) Intertrochanteric fracture of right femur Qualifiers: Encounter type: initial encounter Fracture type: closed Fracture alignment: displaced Qualified Code(s): S72.141A - Displaced intertrochanteric fracture of right femur, initial encounter for closed fracture Is this a current diagnosis for this admission?: Yes Plan: -Status post ORIF day 2 - XR hip showed right hip intertrochanteric fracture -DVT prophylaxis switched to xarelto as this has more evidence than full dose aspirin -Weightbearing as Dr. Altamirano instructed -Osullivan catheter removed voiding spontaneously -norco for pain -Lidocaine patch and heating pads ordered -PT/OT recommending acute rehab awaiting [facility] acceptance (3) WILLIAM (acute kidney injury) Is this a current diagnosis for this admission?: Yes Plan: -Creatinine 1.74 from 1.1 likely secondary from poor oral intake due to n.p.o. status -monitor Creatinine (4) Acute right hip pain Is this a current diagnosis for this admission?: Yes Plan: - 2/2 to right hip fracture - heat pack and lidocaine patch (5) Hyponatremia Is this a current diagnosis for this admission?: Yes Plan: -Mild 133.8 -We will continue to monitor (6) HTN (hypertension) Qualifiers: Hypertension type: essential hypertension Qualified Code(s): I10 - [place] l (primary) hypertension Is this a current diagnosis for this admission?: Yes Plan: - started on losartan BP goal <130/80 (7) Prediabetes Is this a current diagnosis for this admission?: Yes Plan: -A1C 6.1 - will start on metformin after discharge (8) DVT prophylaxis Is this a current diagnosis for this admission?: Yes Plan: - DVT prophylaxis switched to Xarelto 10 mg daily for 6 weeks total as xarelto has more evidence in terms of preventing DVT in post orthopedic surgery patients. (9) Crohn's disease in remission Is this a current diagnosis for this admission?: Yes - Time Time Spent with patient: 25-34 minutes Anticipated Discharge Disposition: [facility] Anticipated Discharge Timeframe: within 48 hours
[2020-01-17] MEDS: RIVAROXABAN 10 MG TABLET PO SCH (18:37)
[2020-01-17] MEDS: ATORVASTATIN CALCIUM 80 MG TABLET PO SCH (21:45)
[2020-01-17] MEDS: LIDOCAINE 5% (700 MG) TRANSDERMAL ADH..PATCH TP SCH (21:46)
[2020-01-18 06:09] LABS: ABSOLUTE EOSINOPHILS # (AUTO) 0.2 10^3/uL (0.0-0.6); ABSOLUTE MONOCYTES (AUTO) 0.8 10^3/uL (0.1-1.4); ABSOLUTE NEUT (AUTO) 4.8 10^3/uL (1.7-8.2); BASOPHILS % (AUTO) 0.7 % (0-2); EOSINOPHILS % (AUTO) 2.7 % (0-6); HEMATOCRIT 30.5 % (36.0-47.0); HEMOGLOBIN 10.7 g/dL (12.0-15.5); LYMPHOCYTES % (AUTO) 15.1 % (13-45); MEAN CORPUSCULAR HEMOGLOBIN 32.7 pg (27.0-33.4); MEAN CORPUSCULAR HGB CONC 35.2 g/dL (32.0-36.0); MEAN CORPUSCULAR VOLUME 93 fl (80-97); MONOCYTES % (AUTO) 10.9 % (3-13); PLATELET COUNT 154 10^3/uL (150-450); RED BLOOD COUNT 3.29 10^6/uL (3.72-5.28); RED CELL DISTRIBUTION WIDTH 13.3 % (11.5-14.0); SEGMENTED NEUTROPHILS % (AUTO) 70.6 % (42-78); TOTAL CELLS COUNTED % (AUTO) 100 %; WHITE BLOOD COUNT 6.9 10^3/uL (4.0-10.5)
[2020-01-18 06:33] LABS: ALBUMIN 3.1 g/dL (3.5-5.0); ALKALINE PHOSPHATASE 62 U/L (38-126); ANION GAP 10 (5-19); ASPARTATE AMINO TRANSFERASE 25 U/L (14-36); BILIRUBIN,DIRECT 0.1 mg/dL (0.0-0.4); BILIRUBIN,TOTAL 1.1 mg/dL (0.2-1.3); BLOOD UREA NITROGEN 15 mg/dL (7-20); CALCIUM 8.8 mg/dL (8.4-10.2); CARBON DIOXIDE 26 mmol/L (22-30); CHLORIDE 99 mmol/L (98-107); GLUCOSE 114 mg/dL (75-110); POTASSIUM 3.6 mmol/L (3.6-5.0); TOTAL PROTEIN 5.6 g/dL (6.3-8.2)
[2020-01-18] MEDS: INSULIN LISPRO 100 UNIT/ML 3 ML VIAL SUBCUT SCH ×4 (07:59→22:06)
--- NOTE | 2020-01-18 09:11 | PDOC PROGRESS REPORT ---
Subjective Progress Note for:: 01/18/20 Subjective:: CHRISTY SOW is a 84 year old female who presented to the emergency room with acute right hip pain. She admits tripping and falling while walking with her walker earlier today, experiencing immediate severe sharp grating pain in the right hip worsened by movement. Her pain is associated with nausea with vomiting. She denies other associated or accompanying signs and symptoms. She admits a prior similar episode with a left hip fracture 2 years ago. She has not identified any additional aggravating or ameliorating factors for her right hip pain. In the emergency room she was found to have a minimally displaced intertrochanteric fracture of the right femur. She was subsequently admitted to the hospitalist service with consultation to Dr. Delgado for orthopedic care. D2 hospital stay. 01/14/20. She was seen and examined at bedside. right hip pain is very minimal and only during movements. she denies any chest pain, SOB, palpitations. I have confirmed with her daughter that she is not on any chronic medications for chronic illnesses. Per Dr. Delgado, plan to do ORIF tomorrow. NPO at midnight D3 hospital stay. 01/15/20. She was seen and examined at bedside prior to OR. She denied any new neurologic deficit. She apparently had an episode of c onfusion last night. MRI brain was done which showed acute ischemia of the right cerebellar hemisphere 6 to 8 hours old. Acute to subacute small ischemic focus right putamen. This is likely the cause of her fall resulting to her right intertrochanteric fracture. She does not have any measurable neurologic deficit and her mental status is back at baseline. She was able to proceed with her ORIF. Stroke order set used stroke work-up ongoing. She will be started on full dose aspirin both for stroke and for DVT prophylaxis after orthopedic surgery. Carotid Doppler ultrasound and echo scheduled for tomorrow. D4 hospital stay 01/16/20. She was seen and examined at bedside day 1 post ORIF. She reports minimal postop pain, she urinates spontaneously. She was able to work with physical therapy but was unable to ambulate fully due to pain. Physical therapy is recommending acute rehab. Carotid ultrasound showed no significant stenosis. Echo pending. She is on full dose aspirin for DVT prophylaxis. D5 hospital stay 01/17/20. She was seen and examined at bedside POD 2 ORIF. Able to stand with PT still not able to walk further. She denies any post op pain. She is incontinent of urine. Denies any fever, chest pain, SOB. DVT prophylaxis switched from aspirin to xarelto per literature this is preferred. D6 hospital stay 01/18/20. She was seen and examined at bedside POD3 ORIF. No new complains, pain on right hip only when working with physical therapy seems adequately treated with current pain meds of nortx. On xarelto for DVT proph and aspirin for stroke. She is afebrile with good appetite. Awaiting [facility] placement. Reason For Visit: INTERTROCHANTERIC FRACTURE OF RIGHT FEMUR Physical Exam Vital Signs: Temp Pulse Resp BP Pulse Ox 98.6 F 85 18 188/78 H 97 01/18/20 07:46 01/18/20 07:46 01/18/20 07:46 01/18/20 07:46 01/18/20 07:46 Intake & Output 01/17/20 01/18/20 01/19/20 07:59 06:59 06:59 Intake Total Output Total Balance Weight General appearance: PRESENT: no acute distress, cooperative Head exam: PRESENT: atraumatic, normocephalic Eye exam: PRESENT: EOMI, PERRLA Mouth exam: PRESENT: moist Neck exam: PRESENT: full ROM Respiratory exam: PRESENT: clear to auscultation dorina, symmetrical, unlabored Cardiovascular exam: PRESENT: RRR, +S1, +S2 GI/Abdominal exam: PRESENT: normal bowel sounds, soft. ABSENT: rebound, tenderness Musculoskeletal exam: PRESENT: other - limited ROM right hip Neurological exam: PRESENT: alert, awake, oriented to person, oriented to place, oriented to time, oriented to situation Psychiatric exam: PRESENT: normal mood Skin exam: PRESENT: normal color Results Laboratory Results: 01/18/20 05:09 01/18/20 05:09 01/18/20 01/18/20 05:09 05:09 WBC 6.9 RBC 3.29 L Hgb 10.7 L Hct 30.5 L MCV 93 MCH 32.7 MCHC 35.2 RDW 13.3 Plt Count 154 Seg Neutrophils % 70.6 Sodium 134.5 L Potassium 3.6 Chloride 99 Carbon Dioxide 26 Anion Gap 10 BUN 15 Creatinine 0.92 Est GFR ( Amer) > 60 Glucose 114 H Calcium 8.8 Total Bilirubin 1.1 AST 25 Alkaline Phosphatase 62 Total Protein 5.6 L Albumin 3.1 L Impressions: Cervical Spine CT 01/13/20 20:37 IMPRESSION: No acute findings in the cervical spine. Head CT 01/13/20 20:37 IMPRESSION: No acute intracranial abnormality. EXAM DESCRIPTION: CLINICAL HISTORY: fall, eval trauma COMPARISON: None FINDINGS: 2 view(s) submitted. There is a moderate knee joint effusion. There is genu valgus with lateral femoral tibial joint space narrowing. Osteophytic formation involves the lateral tibial plateau. There is mild to moderate medial femorotibial joint space loss. No fracture or dislocation is identified. Bone marrow attenuation is unremarkable. No radiopaque foreign body is identified. IMPRESSION: Degenerative changes. No acute fracture or dislocation. Knee X-Ray 01/13/20 20:37 IMPRESSION: No acute intracranial abnormality. EXAM DESCRIPTION: CLINICAL HISTORY: fall, eval trauma COMPARISON: None FINDINGS: 2 view(s) submitted. There is a moderate knee joint effusion. There is genu valgus with lateral femoral tibial joint space narrowing. Osteophytic formation involves the lateral tibial plateau. There is mild to moderate medial femorotibial joint space loss. No fracture or dislocation is identified. Bone marrow attenuation is unremarkable. No radiopaque foreign body is identified. IMPRESSION: Degenerative changes. No acute fracture or dislocation. Chest X-Ray 01/14/20 00:00 IMPRESSION: Stable hiatal hernia. No acute findings. Head MRI 01/14/20 00:00 IMPRESSION: Findings are consistent with acute ischemia of the right cerebellar hemisphere likely at least 6 to eight hours old given mildly increased FLAIR signal. Sequela of additional ischemic insult elsewhere. Acute to subacute small ischemic focus of the right putamen. See additional findings above. Fluoroscopy 01/15/20 00:00 IMPRESSION: ORIF right hip. Refer to operative note for further information. Hip/Pelvis X-Ray 01/15/20 00:00 IMPRESSION: ORIF right hip. Refer to operative note for further information. Carotid Doppler Study 01/16/20 00:00 IMPRESSION: NO HEMODYNAMICALLY SIGNIFICANT STENOSIS. Assessment and Plan - Diagnosis (1) CVA (cerebral vascular accident) Qualifiers: CVA mechanism: thrombosis Laterality of affected vessel: right Is this a current diagnosis for this admission?: Yes Plan: -Patient came in due to a fall, also had a brief episode of confusion last night. -MRI brain showed acute ischemia of the right cerebellar hemisphere likely at least 6 to 8 hours old. Acute to subacute small ischemic focus of the right putamen. -NIH score 2 -Not a candidate for TPA -Minimal neurologic deficit, unable to assess strength of right lower limb secondary to intertrochanteric fracture but I suspect this might be the cause of her fall and subsequent fracture. -stroke order set used -A1c 6.1 pre diabetes - Lipid panel LDL 79, TC 163 - carotid doppler negative - echo with bubble study normal EF 55-60%, negative bubble study -on aspirin 81 mg for stroke and Xarelto for DVT prophylaxis. Xarelto duration 6 weeks post surgery. Should be stopped by Mar 03, 2020 -High-dose statin -started on Losartan -PT OT consulted -awaiting [facility] transfer (2) Intertrochanteric fracture of right femur Qualifiers: Encounter type: initial encounter Fracture type: closed Fracture alignment: displaced Qualified Code(s): S72.141A - Displaced intertrochanteric fracture of right femur, initial encounter for closed fracture Is this a current diagnosis for this admission?: Yes Plan: -Status post ORIF day 3 - XR hip showed right hip intertrochanteric fracture -DVT prophylaxis switched to xarelto as this has more evidence than full dose aspirin -Weightbearing as Dr. Altamirano instructed -Osullivan catheter removed voiding spontaneously -norco for pain -Lidocaine patch and heating pads ordered -PT/OT recommending acute rehab awaiting [facility] acceptance (3) WILLIAM (acute kidney injury) Is this a current diagnosis for this admission?: Yes Plan: -resolved -monitor Creatinine (4) Acute right hip pain Is this a current diagnosis for this admission?: Yes Plan: - 2/2 to right hip fracture - heat pack and lidocaine patch (5) Hyponatremia Is this a current diagnosis for this admission?: Yes Plan: -Mild 133.8 -We will continue to monitor (6) HTN (hypertension) Qualifiers: Hypertension type: essential hypertension Qualified Code(s): I10 - Essential (primary) hypertension Is this a current diagnosis for this admission?: Yes Plan: - started on losartan BP goal <130/80 (7) Prediabetes Is this a current diagnosis for this admission?: Yes Plan: -A1C 6.1 - will start on metformin after discharge (8) DVT prophylaxis Is this a current diagnosis for this admission?: Yes Plan: - DVT prophylaxis switched to Xarelto 10 mg daily for 6 weeks total as xarelto has more evidence in terms of preventing DVT in post orthopedic surgery patients. (9) Crohn's disease in remission Is this a current diagnosis for this admission?: Yes - Time Time Spent with patient: 25-34 minutes Anticipated Discharge Disposition: Nursing Home Facility Anticipated Discharge Timeframe: within 48 hours
[2020-01-18] MEDS: ASPIRIN 81 MG TABLET, CHEWABLE PO SCH (10:30)
[2020-01-18] MEDS: LOSARTAN POTASSIUM 50 MG TABLET PO SCH (10:30)
[2020-01-18] MEDS: HYDROCODONE/ACETAMINOPHEN 5-325 MG TABLET PO PRN (10:30)
[2020-01-18] MEDS: FAMOTIDINE INJ/PF 20 MG/2 ML SDV IV SCH ×2 (10:31→22:04)
[2020-01-18] MEDS: RIVAROXABAN 10 MG TABLET PO SCH (17:53)
[2020-01-18] MEDS: ATORVASTATIN CALCIUM 80 MG TABLET PO SCH (22:04)
[2020-01-18] MEDS: LIDOCAINE 5% (700 MG) TRANSDERMAL ADH..PATCH TP SCH (22:06)
[2020-01-19] MEDS: INSULIN LISPRO 100 UNIT/ML 3 ML VIAL SUBCUT SCH ×2 (09:34→12:43)
[2020-01-19] MEDS: LOSARTAN POTASSIUM 50 MG TABLET PO SCH (09:35)
[2020-01-19] MEDS: ASPIRIN 81 MG TABLET, CHEWABLE PO SCH (09:35)
[2020-01-19] MEDS: FAMOTIDINE INJ/PF 20 MG/2 ML SDV IV SCH (09:36)
[2020-01-19] MEDS: HYDROCODONE/ACETAMINOPHEN 5-325 MG TABLET PO PRN (09:52)
[2020-01-19 14:52] VITALS: BP 155/60
--- NOTE | 2020-01-19 15:09 | PDOC TRANSFER SUMMARY ---
Impression - Admit/DC Date/PCP Admission Date/Primary Care Provider: 01/13/20 22:58 Discharge Date: 01/19/20 - Discharge Diagnosis (1) CVA (cerebral vascular accident) Is this a current diagnosis for this admission?: Yes (2) Intertrochanteric fracture of right femur Is this a current diagnosis for this admission?: Yes (3) WILLIAM (acute kidney injury) Is this a current diagnosis for this admission?: Yes (4) Acute right hip pain Is this a current diagnosis for this admission?: Yes (5) Hyponatremia Is this a current diagnosis for this admission?: Yes (6) HTN (hypertension) Is this a current diagnosis for this admission?: Yes (7) Prediabetes Is this a current diagnosis for this admission?: Yes (8) DVT prophylaxis Is this a current diagnosis for this admission?: Yes (9) Crohn's disease in remission Is this a current diagnosis for this admission?: Yes - Assessment Summary: (1) CVA (cerebral vascular accident) Qualifiers: CVA mechanism: thrombosis Laterality of affected vessel: right Is this a current diagnosis for this admission?: Yes Plan: -Patient came in due to a fall, also had a brief episode of confusion last night. -MRI brain showed acute ischemia of the right cerebellar hemisphere likely at least 6 to 8 hours old. Acute to subacute small ischemic focus of the right putamen. -NIH score 2 -Not a candidate for TPA -Minimal neurologic deficit, unable to assess strength of right lower limb secondary to intertrochanteric fracture but I suspect this might be the cause of her fall and subsequent fracture. -stroke order set used -A1c 6.1 pre diabetes - Lipid panel LDL 79, TC 163 - carotid doppler negative - echo with bubble study normal EF 55-60%, negative bubble study -on aspirin 81 mg for stroke and Xarelto for DVT prophylaxis. Xarelto duration 6 weeks post surgery. Should be stopped by Mar 03, 2020 -High-dose statin -started on Losartan -PT OT consulted -awaiting [facility] transfer (2) Intertrochanteric fracture of right femur Qualifiers: Encounter type: initial encounter Fracture type: closed Fracture alig nment: displaced Qualified Code(s): S72.141A - Displaced intertrochanteric fracture of right femur, initial encounter for closed fracture Is this a current diagnosis for this admission?: Yes Plan: -Status post ORIF day 3 - XR hip showed right hip intertrochanteric fracture -DVT prophylaxis switched to xarelto as this has more evidence than full dose aspirin -Weightbearing as Dr. Altamirano instructed -Osullivan catheter removed voiding spontaneously -norco for pain -Lidocaine patch and heating pads ordered -PT/OT recommending acute rehab awaiting [facility] acceptance (3) WILLIAM (acute kidney injury) Is this a current diagnosis for this admission?: Yes Plan: -resolved -monitor Creatinine (4) Acute right hip pain Is this a current diagnosis for this admission?: Yes Plan: - 2/2 to right hip fracture - heat pack and lidocaine patch (5) Hyponatremia Is this a current diagnosis for this admission?: Yes Plan: -Mild 133.8 -We will continue to monitor (6) HTN (hypertension) Qualifiers: Hypertension type: essential hypertension Qualified Code(s): I10 - Essential (primary) hypertension Is this a current diagnosis for this admission?: Yes Plan: - started on losartan BP goal <130/80 (7) Prediabetes Is this a current diagnosis for this admission?: Yes Plan: -A1C 6.1 - will start on metformin after discharge (8) DVT prophylaxis Is this a current diagnosis for this admission?: Yes Plan: - DVT prophylaxis switched to Xarelto 10 mg daily for 6 weeks total as xarelto has more evidence in terms of preventing DVT in post orthopedic surgery patients. (9) Crohn's disease in remission Is this a current diagnosis for this admission?: Yes - Additional Information Resuscitation Status: Full Code Discharge Diet: As Tolerated Discharge Activity: Activity As Tolerated Prescriptions: Aspirin [Aspirin 81 mg Chewable Tablet] 81 mg PO DAILY 60 Days #60 tab.chew Losartan Potassium [Cozaar 50 mg Tablet] 50 mg PO DAILY 60 Days #60 tablet Lidocaine [Lidoderm 5% (700 mg) Transdermal Patch] 1 patch TP QHS 10 Days #10 adh..patch Atorvastatin Calcium [Lipitor 80 mg Tablet] 80 mg PO QHS 60 Days #60 tablet Hydrocodone/Acetaminophen [[place] 5-325 mg Tablet] 1 tab PO Q6HP PRN 5 Days #10 tablet PRN Reason: Acetaminophen [Tylenol 650 mg Supp] 650 mg ND Q4HP PRN 14 Days #20 tab PRN Reason: Rivaroxaban [Xarelto 10 mg Tablet] 10 mg PO WSUPPER 45 Days #45 tablet Home Medications: Acetaminophen [Tylenol 650 mg Supp] 650 mg ND Q4HP PRN 14 Days #20 tab 01/19/20 Aspirin [Aspirin 81 mg Chewable Tablet] 81 mg PO DAILY 60 Days #60 tab.chew 01/19/20 Atorvastatin Calcium [Lipitor 80 mg Tablet] 80 mg PO QHS 60 Days #60 tablet 01/19/20 Hydrocodone/Acetaminophen [[place] 5-325 mg Tablet] 1 tab PO Q6HP PRN 5 Days #10 tablet 01/19/20 Lidocaine [Lidoderm 5% (700 mg) Transdermal Patch] 1 patch TP QHS 10 Days #10 adh..patch 01/19/20 Losartan Potassium [Cozaar 50 mg Tablet] 50 mg PO DAILY 60 Days #60 tablet 01/19/20 Rivaroxaban [Xarelto 10 mg Tablet] 10 mg PO WSUPPER 45 Days #45 tablet 01/19/20 History of Present Illiness History of Present Illness: CHRISTY SOW is a 84 year old female, CHRISTY SOW is a 84 year old female who presented to the emergency room with acute right hip pain. She admits tripping and falling while walking with her walker earlier today, experiencing immediate severe sharp grating pain in the right hip worsened by movement. Her pain is associated with nausea with vomiting. She denies other associated or accompanying signs and symptoms. She admits a prior similar episode with a left hip fracture 2 years ago. She has not identified any additional aggravating or ameliorating factors for her right hip pain. In the emergency room she was found to have a minimally displaced intertrochanteric fracture of the right femur. She was subsequently admitted to the hospitalist service with consultation to Dr. Delgado for orthopedic care. Hospital Course Hospital Course: D2 hospital stay. 01/14/20. She was seen and examined at bedside. right hip pain is very minimal and only during movements. she denies any chest pain, SOB, palpitations. I have confirmed with her daughter that she is not on any chronic medications for chronic illnesses. Per Dr. Delgado, plan to do ORIF tomorrow. NPO at midnight D3 hospital stay. 01/15/20. She was seen and examined at bedside prior to OR. She denied any new neurologic deficit. She apparently had an episode of confusion last night. MRI brain was done which showed acute ischemia of the right cerebellar hemisphere 6 to 8 hours old. Acute to subacute small ischemic focus right putamen. This is likely the cause of her fall resulting to her right intertrochanteric fracture. She does not have any measurable neurologic deficit and her mental status is back at baseline. She was able to proceed with her ORIF. Stroke order set used stroke work-up ongoing. She will be started on full dose aspirin both for stroke and for DVT prophylaxis after orthopedic surgery. Carotid Doppler ultrasound and echo scheduled for tomorrow. D4 hospital stay 01/16/20. She was seen and examined at bedside day 1 post ORIF. She reports minimal postop pain, she urinates spontaneously. She was able to work with physical therapy but was unable to ambulate fully due to pain. Physical therapy is recommending acute rehab. Carotid ultrasound showed no significant stenosis. Echo pending. She is on full dose aspirin for DVT prophylaxis. D5 hospital stay 01/17/20. She was seen and examined at bedside POD 2 ORIF. Able to stand with PT still not able to walk further. She denies any post op pain. She is incontinent of urine. Denies any fever, chest pain, SOB. DVT prophylaxis switched from aspirin to xarelto per literature this is preferred. D6 hospital stay 01/18/20. She was seen and examined at bedside POD3 ORIF. No new complains, pain on right hip only when working with physical therapy seems adequately treated with current pain meds of [place]. On xarelto for DVT proph and aspirin for stroke. She is afebrile with good appetite. Awaiting [facility] placement. D7 Hospital stay 01/19/20 seen and examined at bedside. feels much better, minimal pain. Echo negative for, carotid US negative. [facility] Physical Exam Vital Signs: Temp Pulse Resp BP Pulse Ox 98.2 F 88 18 155/60 H 98 01/19/20 12:00 01/19/20 12:00 01/19/20 12:00 01/19/20 12:00 01/19/20 12:00 Intake & Output 01/18/20 01/19/20 01/20/20 06:59 06:59 06:59 Intake Total 1190 280 Output Total 600 Balance 590 280 Weight General appearance: PRESENT: no acute distress, cooperative Head exam: PRESENT: atraumatic, normocephalic Eye exam: PRESENT: EOMI, PERRLA Mouth exam: PRESENT: moist Throat exam: ABSENT: post pharyngeal erythema Neck exam: ABSENT: full ROM, JVD Respiratory exam: PRESENT: clear to auscultation dorina, symmetrical, unlabored Cardiovascular exam: PRESENT: RRR, +S1, +S2 Pulses: PRESENT: +2 pedal pulses bilateral GI/Abdominal exam: PRESENT: normal bowel sounds, soft. ABSENT: rebound, tenderness Extremities exam: PRESENT: other - limited ROM right hip Neurological exam: PRESENT: alert, awake, oriented to person, oriented to place, oriented to time, oriented to situation Psychiatric exam: PRESENT: normal mood Skin exam: PRESENT: normal color Results Laboratory Results: WBC 6.9 10^3/uL (4.0-10.5) 01/18/20 05:09 RBC 3.29 10^6/uL (3.72-5.28) L 01/18/20 05:09 Hgb 10.7 g/dL (12.0-15.5) L 01/18/20 05:09 Hct 30.5 % (36.0-47.0) L 01/18/20 05:09 MCV 93 fl (80-97) 01/18/20 05:09 MCH 32.7 pg (27.0-33.4) 01/18/20 05:09 MCHC 35.2 g/dL (32.0-36.0) 01/18/20 05:09 RDW 13.3 % (11.5-14.0) 01/18/20 05:09 Plt Count 154 10^3/uL (150-450) 01/18/20 05:09 Lymph % (Auto) 15.1 % (13-45) 01/18/20 05:09 [place] % (Auto) 10.9 % (3-13) 01/18/20 05:09 Eos % (Auto) 2.7 % (0-6) 01/18/20 05:09 Baso % (Auto) 0.7 % (0-2) 01/18/20 05:09 Absolute Neuts (auto) 4.8 10^3/uL (1.7-8.2) 01/18/20 05:09 Absolute Lymphs (auto) 1.0 10^3/uL (0.5-4.7) 01/18/20 05:09 Absolute Monos (auto) 0.8 10^3/uL (0.1-1.4) 01/18/20 05:09 Absolute Eos (auto) 0.2 10^3/uL (0.0-0.6) 01/18/20 05:09 Absolute Basos (auto) 0.0 10^3/uL (0.0-0.2) 01/18/20 05:09 Seg Neutrophils % 70.6 % (42-78) 01/18/20 05:09 PT 13.0 SEC (11.4-15.4) 01/13/20 19:04 INR 0.97 01/13/20 19:04 APTT 27.0 SEC (23.5-35.8) 01/14/20 04:31 Sodium 134.5 mmol/L (137-145) L 01/18/20 05:09 Potassium 3.6 mmol/L (3.6-5.0) 01/18/20 05:09 Chloride 99 mmol/L (98-107) 01/18/20 05:09 Carbon Dioxide 26 mmol/L (22-30) 01/18/20 05:09 Anion Gap 10 (5-19) 01/18/20 05:09 BUN 15 mg/dL (7-20) 01/18/20 05:09 Creatinine 0.92 mg/dL (0.52-1.25) 01/18/20 05:09 Est GFR ( Amer) > 60 (>60) 01/18/20 05:09 Est GFR (MDRD) Non-Af 58 (>60) L 01/18/20 05:09 Glucose 114 mg/dL (75-110) H 01/18/20 05:09 POC Glucose 134 mg/dL (70-110) H 01/19/20 12:06 Hemoglobin A1c % 6.1 % (4.7-6.0) H 01/16/20 06:00 Calcium 8.8 mg/dL (8.4-10.2) 01/18/20 05:09 Magnesium 1.8 mg/dL (1.6-2.3) 01/14/20 04:31 Total Bilirubin 1.1 mg/dL (0.2-1.3) 01/18/20 05:09 Direct Bilirubin 0.1 mg/dL (0.0-0.4) 01/18/20 05:09 Neonat Total Bilirubin Not Reportable 01/18/20 05:09 Neonat Direct Bilirubin Not Reportable 01/18/20 05:09 Neonat Indirect Bili Not Reportable 01/18/20 05:09 AST 25 U/L (14-36) 01/18/20 05:09 ALT 5 U/L (<35) 01/18/20 05:09 Alkaline Phosphatase 62 U/L (38-126) 01/18/20 05:09 Total Protein 5.6 g/dL (6.3-8.2) L 01/18/20 05:09 Albumin 3.1 g/dL (3.5-5.0) L 01/18/20 05:09 Triglycerides 134 mg/dL (<150) 01/16/20 06:00 Cholesterol 163.59 mg/dL (0-200) 01/16/20 06:00 LDL Cholesterol Direct 79 mg/dL (<100) 01/16/20 06:00 VLDL Cholesterol 27.0 mg/dL (10-31) 01/16/20 06:00 HDL Cholesterol 43 mg/dL (>40) 01/16/20 06:00 Urine Color YELLOW 01/13/20 21:42 Urine Appearance CLOUDY 01/13/20 21:42 Urine pH 6.0 (5.0-9.0) 01/13/20 21:42 Ur Specific [employer] 1.010 01/13/20 21:42 Urine Protein 100 mg/dL (NEGATIVE) H 01/13/20 21:42 Urine Glucose (UA) NEGATIVE mg/dL (NEGATIVE) 01/13/20 21:42 Urine Ketones NEGATIVE mg/dL (NEGATIVE) 01/13/20 21:42 Urine Blood NEGATIVE (NEGATIVE) 01/13/20 21:42 Urine Nitrite NEGATIVE (NEGATIVE) 01/13/20 21:42 Urine Bilirubin NEGATIVE (NEGATIVE) 01/13/20 21:42 Urine Urobilinogen NEGATIVE mg/dL (<2.0) 01/13/20 21:42 Ur Leukocyte Esterase NEGATIVE (NEGATIVE) 01/13/20 21:42 Urine WBC (Auto) 2 /HPF 01/13/20 21:42 Urine RBC (Auto) 2 /HPF 01/13/20 21:42 Urine Bacteria (Auto) TRACE /HPF 01/13/20 21:42 Squamous Epi Cells Auto <1 /HPF 01/13/20 21:42 Urine Ascorbic Acid NEGATIVE (NEGATIVE) 01/13/20 21:42 SARS-CoV-2 (PCR) NEGATIVE (NEGATIVE) 01/14/20 08:25 Impressions: Cervical Spine CT 01/13/20 20:37 IMPRESSION: No acute findings in the cervical spine. Head CT 01/13/20 20:37 IMPRESSION: No acute intracranial abnormality. EXAM DESCRIPTION: CLINICAL HISTORY: fall, eval trauma COMPARISON: None FINDINGS: 2 view(s) submitted. There is a moderate knee joint effusion. There is genu valgus with lateral femoral tibial joint space narrowing. Osteophytic formation involves the lateral tibial plateau. There is mild to moderate medial femorotibial joint space loss. No fracture or dislocation is identified. Bone marrow attenuation is unremarkable. No radiopaque foreign body is identified. IMPRESSION: Degenerative changes. No acute fracture or dislocation. Hip/Pelvis X-Ray 01/13/20 20:37 IMPRESSION: Right hip intertrochanteric fracture. Knee X-Ray 01/13/20 20:37 IMPRESSION: No acute intracranial abnormality. EXAM DESCRIPTION: CLINICAL HISTORY: fall, eval trauma COMPARISON: None FINDINGS: 2 view(s) submitted. There is a moderate knee joint effusion. There is genu valgus with lateral femoral tibial joint space narrowing. Osteophytic formation involves the lateral tibial plateau. There is mild to moderate medial femorotibial joint space loss. No fracture or dislocation is identified. Bone marrow attenuation is unremarkable. No radiopaque foreign body is identified. IMPRESSION: Degenerative changes. No acute fracture or dislocation. Chest X-Ray 01/14/20 00:00 IMPRESSION: Stable hiatal hernia. No acute findings. Head MRI 01/14/20 00:00 IMPRESSION: Findings are consistent with acute ischemia of the right cerebellar hemisphere likely at least 6 to eight hours old given mildly increased FLAIR signal. Sequela of additional ischemic insult elsewhere. Acute to subacute small ischemic focus of the right putamen. See additional findings above. Fluoroscopy 01/15/20 00:00 IMPRESSION: ORIF right hip. Refer to operative note for further information. Hip/Pelvis X-Ray 01/15/20 00:00 IMPRESSION: Right hip arthroplasty. Refer to operative note for further information. Hip/Pelvis X-Ray 01/15/20 00:00 IMPRESSION: ORIF right hip. Refer to operative note for further information. Carotid Doppler Study 01/16/20 00:00 IMPRESSION: NO HEMODYNAMICALLY SIGNIFICANT STENOSIS. Plan Health Concerns: Transfer to [facility] for Rehab - Xarelto to be stopped on March 03, 2020 for DVT prophylaxis - Aspirin to continue indefinitely Time Spent: Greater than 30 Minutes Stroke Is this a Stroke Patient?: Yes Stroke Pt being discharged on Anti-thrombolytic therapy?: Yes Stroke Pt being discharged on Anti-coagulation therapy?: Yes Stroke Pt being discharged on Statins?: Yes Acute Heart Failure Is this a Heart Failure Patient?: No
[2020-01-19] MEDS ORDERED: FAMOTIDINE 20 MG TABLET PO SCH (22:00)
== END 2020-01-19 18:02 | DRG 480 ==
LOC: ER 18:53 → EH 22:58 → 4W 01-14 02:42 → 3W 01-15 14:13
PROVIDERS: ADMIT Emergency Medicine; ATTEND Internal Medicine
PROC: 0QS606Z Reposition Right Upper Femur with Intramedullary Internal Fixation Device, Open Approach (ICD-10-PCS; principal; 2020-01-15 10:00)
PROC: B24BZZZ Ultrasonography of Heart with Aorta (ICD-10-PCS; 2020-01-16)
DX: S72.141A Displaced intertrochanteric fracture of right femur, initial encounter for closed fracture (principal); I63.341 Cerebral infarction due to thrombosis of right cerebellar artery; N17.9 Acute kidney failure, unspecified; E87.1 Hypo-osmolality and hyponatremia; R73.03 Prediabetes; I10 Essential (primary) hypertension; Y92.009 Unspecified place in unspecified non-institutional (private) residence as the place of occurrence of the external cause; W01.0XXA Fall on same level from slipping, tripping and stumbling without subsequent striking against object, initial encounter; R40.2410 Glasgow coma scale score 13-15, unspecified time; Z88.1 Allergy status to other antibiotic agents; Z88.2 Allergy status to sulfonamides; Z88.8 Allergy status to other drugs, medicaments and biological substances; Z88.6 Allergy status to analgesic agent; Z87.891 Personal history of nicotine dependence; Z87.19 Personal history of other diseases of the digestive system; Z87.81 Personal history of (healed) traumatic fracture
CPT/HCPCS: 01230; 36415; 70450; 70551; 71045; 72125; 80053; 80061; 81001; 82962; 83036; 83735; 85025; 85027; 85610; 85730; 87635; 90471; 90686; 93005; 93010; 93306; 93880; 96374; 96375; 99285; C1713; C9803; G0008; J0690; J1100; J1170; J1644; J1815; J2250; J2370; J2405; J2704; J3010; J3490; J7060; J7121; S0028

== ENCOUNTER 2020-01-26 17:55 | Observation (INO) | payer MEDICARE, OTHER ==
[2020-01-26 18:46] LABS: ABSOLUTE MONOCYTES (AUTO) 0.8 10^3/uL (0.1-1.4); ABSOLUTE NEUT (AUTO) 9.7 10^3/uL (1.7-8.2); BASOPHILS % (AUTO) 0.2 % (0-2); EOSINOPHILS % (AUTO) 0.2 % (0-6); HEMATOCRIT 35.4 % (36.0-47.0); HEMOGLOBIN 12.6 g/dL (12.0-15.5); LYMPHOCYTES % (AUTO) 8.5 % (13-45); MEAN CORPUSCULAR HEMOGLOBIN 32.2 pg (27.0-33.4); MEAN CORPUSCULAR HGB CONC 35.5 g/dL (32.0-36.0); MEAN CORPUSCULAR VOLUME 91 fl (80-97); MONOCYTES % (AUTO) 6.8 % (3-13); PLATELET COUNT 425 10^3/uL (150-450); RED BLOOD COUNT 3.91 10^6/uL (3.72-5.28); RED CELL DISTRIBUTION WIDTH 13.5 % (11.5-14.0); SEGMENTED NEUTROPHILS % (AUTO) 84.3 % (42-78); TOTAL CELLS COUNTED % (AUTO) 100 %; WHITE BLOOD COUNT 11.5 10^3/uL (4.0-10.5)
--- NOTE | 2020-01-26 18:56 | RADIOLOGY REPORT (SQ) ---
EXAM DESCRIPTION: CHEST SINGLE VIEW IMAGES COMPLETED DATE/TIME: 01/26/2020 6:46 pm REASON FOR STUDY: abd tenderness, AMS, eval infection COMPARISON: 01/14/2020 EXAM PARAMETERS: NUMBER OF VIEWS: One view. TECHNIQUE: Single frontal radiographic view of the chest acquired. RADIATION DOSE: NA LIMITATIONS: None. FINDINGS: LUNGS AND PLEURA: No opacities, masses or pneumothorax. No pleural effusion. MEDIASTINUM AND HILAR STRUCTURES: No masses. Contour normal. HEART AND VASCULAR STRUCTURES: Heart normal in size. Normal vasculature. BONES: No acute findings. HARDWARE: None in the chest. OTHER: No other significant finding. IMPRESSION: NO ACUTE RADIOGRAPHIC FINDING IN THE CHEST. TECHNICAL DOCUMENTATION: JOB ID: [id number] 2010 [employer]- All Rights Reserved Reading location - IP/workstation name: [email or web address]
[2020-01-26 19:02] LABS: ALBUMIN 3.9 g/dL (3.5-5.0); ALKALINE PHOSPHATASE 102 U/L (38-126); ASPARTATE AMINO TRANSFERASE 27 U/L (14-36); BILIRUBIN,DIRECT 0.4 mg/dL (0.0-0.4); BILIRUBIN,TOTAL 0.9 mg/dL (0.2-1.3); BLOOD UREA NITROGEN 100 mg/dL (7-20); CALCIUM 9.3 mg/dL (8.4-10.2); GLUCOSE 95 mg/dL (75-110); POTASSIUM 3.2 mmol/L (3.6-5.0); TOTAL PROTEIN 7.1 g/dL (6.3-8.2)
[2020-01-26] MEDS ORDERED: RINGERS SOLUTION,LACTATED 1,000 ML IV ONE ×2 (19:04→20:05)
--- NOTE | 2020-01-26 19:04 | ER Document Report ---
ED General - General Chief Complaint: Altered Mental Status Stated Complaint: ALTERED MENTAL STATUS Time Seen by Provider: 01/26/20 18:08 Primary Care Provider: PATRICIA MESSINA MD [Primary Care Provider] - Follow up as needed TRAVEL OUTSIDE OF THE [place] IN LAST 30 DAYS: No - HPI Notes: 84-year-old female arrives with altered mental status. Patient had recent right intertrochanteric fracture, she underwent operative fixation, on hospital day 3 she was also found to have a stroke and was started on anticoagulation. She arrives from primary [facility] for altered mental status. Patient states that she "is here for follow-up on my broken hip". She denies complaints. HPI is limited due to to her current condition. - Related Data Allergies/Adverse Reactions: adalimumab [From Humira] Allergy (Verified 10/29/17 23:51) amoxicillin [From Augmentin] Allergy (Verified 10/29/17 23:51) celecoxib [From Celebrex] Allergy (Verified 10/29/17 23:51) ciprofloxacin [From Cipro] Allergy (Verified 10/29/17 23:51) clavulanic acid [From Augmentin] Allergy (Verified 10/29/17 23:51) infliximab [From Remicade] Allergy (Verified 10/29/17 23:51) metformin Allergy (Verified 10/29/17 23:51) morphine Allergy (Verified 10/29/17 23:51) Sulfa (Sulfonamide Antibiotics) Allergy (Verified 10/29/17 23:51) colchicine Allergy (Uncoded 10/29/17 23:51) Past Medical History - Social History Smoking Status: Unknown if Ever Smoked Family History: Reviewed & Not Pertinent - Past Medical History Cardiac Medical History: Denies: Hx Atrial Fibrillation, Hx Coronary Artery Disease, Hx DVT, Hx Hypercholesterolemia, Hx Hypertension, Hx Pulmonary Embolism Pulmonary Medical History: Denies: Hx Asthma, Hx COPD Neurological Medical History: Denies: Hx Seizures Endocrine Medical History: Denies: Hx Diabetes Mellitus Type 1, Hx Diabetes Mellitus Type 2, Hx Hyperthyroidism, Hx Hypothyroidism Renal/ Medical History: Denies: Hx Peritoneal Dialysis GI Medical History: Reports: Hx Crohn's Disease. Denies: Hx Cirrhosis, Hx Hepatitis Musculoskeletal Medical History: Denies Hx Fibromyalgia, Denies Hx Gout Skin Medical History: Denies Hx Eczema, Denies Hx Psoriasis Psychiatric Medical History: Reports: Hx Depression Infectious Medical History: Denies: Hx Hepatitis Past Surgical History: Reports: Hx Orthopedic Surgery - Left hip ORIF Review of Systems - Review of Systems -: Yes ROS unobtainable due to patient's medical condition Physical Exam - Vital signs Vitals: Resp 17 01/26/20 17:59 - General In distress: None - HEENT Head: Normocephalic, Atraumatic Extraocular movements intact: Yes Pupils: PERRL Mucous membranes: Dry Neck: Supple - Respiratory Breath sounds: Normal - Cardiovascular Rhythm: Regular Heart sounds: Normal auscultation Normal capillary refill: Yes - Abdominal Distension: Distended Bowel sounds: Hypoactive Tenderness: Tender - Patient does cry out "ow" when abdomen palpated - Extremities General lower extremity: No: Edema - Neurological Neuro grossly intact: Yes Cognition: Confused Notes: Cranial nerves II through XII grossly intact, speech is clear, tongue protrudes midline. Strength is 5/5 in the upper extremities, strength is symmetric betwe en the lower extremities, sensation grossly intact - Psychological Associated symptoms: Other - Delirious - Skin Skin Temperature: Warm Notes: Inspected her to surgical scars, appear to be well hearing, no surrounding erythema or purulence Course - Re-evaluation Re-evalutation: 84-year-old female arrives from [facility] for altered mental status. Patient had recent right intertrochanteric femur fracture which underwent operative fixation, I was actually the physician who saw her in the emergency department, she was alert and oriented at the time able to provide a full history. She is definitely altered from her baseline today. Her mucous membranes are exquisitely dry, I suspect she is dehydrated. I review her records, looks like on hospital day 3 she had an MRI which showed ischemia in the right cerebellar which is estimated to be 6 to 8 hours old, she was started on full anticoagulation at the time. Patient is currently hemodynamically stable, afebrile. She is able to follow commands and has no gross neuro deficits. Concern for infection versus electrolyte versus other metabolic abnormality. Given her thinner use, will obtain CT head as well. 01/26/20 19:40 Minimal leukocytosis of 11.5, no acute anemia. Multiple electrolyte abnormalities, hyponatremia, hypokalemia. Elevated BUN and creatinine, new, suspect her altered mental status could be due from uremia. Have ordered potassium replacement, she is already is receiving 1 L of LR. Have added on additional urine studies and serum osmolality to further characterize, though suspect prerenal given her dry mucous membranes. No elevation of lactic acid. Given the new elevated creatinine, have canceled CT with dye, has changed to Noncon, do not feel that she will be able to have p.o. intake right now given her AMS 01/26/20 21:[address] is concerning for distal SBO. Could be ileus based on her recent surgery. I went in to discuss with the patient, she still exhibits altered mental status, she does answer "no" when asked if she has had bowel movements recently CT head negative for bleed No consolidation on chest x-ray 01/26/20 21:[address] Monique 01/26/20 23:59 Likely ileus per surgery, will see it tomorrow. Admission discussed with Dr Linda - Vital Signs Vital signs: Temp Pulse Resp BP Pulse Ox 18 119/58 L 98 01/26/20 20:28 01/26/20 20:28 01/26/20 20:28 - Laboratory Result Diagrams: 01/26/20 18:08 01/26/20 18:08 Laboratory results interpreted by me: 01/26/20 01/26/20 01/26/20 18:08 18:08 20:50 WBC 11.5 H Hct 35.4 L Lymph % (Auto) 8.5 L Absolute Neuts (auto) 9.7 H Seg Neutrophils % 84.3 H Sodium 125.8 L Potassium 3.2 L Chloride 87 L Carbon Dioxide 17 L Anion Gap 22 H BUN 100 H Creatinine 3.19 H Est GFR ( Amer) 17 L Est GFR (MDRD) Non-Af 14 L Urine Sodium 25 L - Diagnostic Test Radiology reviewed: Image reviewed, Reports reviewed Discharge - Discharge Clinical Impression: Uremia, acute, WILLIAM (acute kidney injury), Hypokalemia, Hyponatremia, Ileus Disposition: ADMITTED INPATIENT Unit Admitted: Medical Floor Referrals: APTRICIA MESSINA MD [Primary Care Provider] - Follow up as needed
[2020-01-26 19:09] LABS: CARBON DIOXIDE 17 mmol/L (22-30); CHLORIDE 87 mmol/L (98-107)
[2020-01-26 19:17] LABS: ANION GAP 22 (5-19)
--- NOTE | 2020-01-26 20:55 | RADIOLOGY REPORT (SQ) ---
CT HEAD WITHOUT IV CONTRAST CLINICAL STATEMENT: AMS TECHNIQUE: Axial CT images from skull base to vertex without IV contrast. This exam was performed according to our departmental dose optimization program, and includes the following measures where applicable: automated exposure control, adjustment of the mAs and/or kVp according to patient size and/or exam, and an iterative reconstruction algorithm. COMPARISON: Unenhanced CT scan of the brain January 13, 2020 FINDINGS: There is no acute intracranial hemorrhage, mass, mass effect or abnormal extra-axial fluid collection. No evidence of an acute territorial infarct is identified. Diffuse global volume loss is again identified with scattered low density in the periventricular white matter consistent with small vessel ischemic disease. No acute process is seen. No significant interval change. Calvaria: The skull base and calvaria demonstrate no abnormality. Paranasal sinuses: Visualized portions of the orbits and paranasal sinuses are unremarkable. skull base: Unremarkable IMPRESSION: 1. No intracranial hemorrhage or mass lesion. 2. Diffuse global volume loss with white matter changes. The appearance is stable.
--- NOTE | 2020-01-26 21:03 | RADIOLOGY REPORT (SQ) ---
EXAM DESCRIPTION: Unenhanced CT scan of the abdomen and pelvis. CLINICAL HISTORY: 84 years Female; AMS, abd tenderness, eval any evidence of infection TECHNIQUE: CT of the abdomen and pelvis without intravenous contrast.. Oral contrastWas not used. All CT scans at this facility use dose modulation, iterative reconstruction, and/or weight based dosing when appropriate to reduce radiation dose to as low as reasonably achievable. This exam was performed according to our department optimization program which includes automated exposure control, adjustment of the mA and/or kv according to patient size and/or use of iterative reconstruction technique. COMPARISON: None. FINDINGS: There is motion artifact on the exam and the patient's hands are on the lower chest and upper abdomen. This results in extensive artifact. Lower chest: There is a large retrocardiac hernia which contains the majority of the stomach. This appears to be in organoaxial positioning. Vascular calcifications are seen in the thoracic aorta. Heart is displaced anteriorly by the hernia. There is minimal volume loss in the lung bases posteriorly. Abdomen: Liver and biliary tree: The unenhanced liver is unremarkable. The gallbladder surgically absent. Pancreas: Diffuse atrophy of the pancreas. Spleen:Within normal limits Kidneys: There is renal cortical thinning bilaterally. The kidneys are small. No stones or hydronephrosis. Adrenal glands:Within normal limits Vascular structures: Scattered vascular calcifications in the aorta and visceral vessels. Retroperitoneum: No mass or lymphadenopathy Abdominal wall: Fat-containing right inguinal hernia GI: Bowel gas pattern is abnormal. The proximal small bowel is distended with fluid. The distal small bowel is decompressed. The colon is decompressed. The transition is in the right lower quadrant of the abdomen. The cause of the bowel obstruction is not clearly seen. This may be adhesions. Appendix: The appendix is not clearly seen General: No free air. No free fluid Pelvis: Lymph nodes: No mass or lymphadenopathy Bladder: The bladder is distended Pelvis: No mass or lymphadenopathy. Bones: There is postsurgical change of fracture repair of the hips bilaterally. On the right there is surrounding edema and the fracture appears acute. IMPRESSION: 1. Large retrocardiac hernia containing the stomach. 2. Abnormal bowel gas pattern consistent with distal small bowel obstruction. The site of the obstruction is in the right lower quadrant and no etiology is seen to account for the obstruction. This may be related to adhesions. 3. Postsurgical change of fracture fixation of the hips. This appears recent on the right.
[2020-01-26] MEDS: POTASSI CL 20 MEQ/50 ML RIDER 20 MEQ/50 ML RTUPB IV SCH (21:16)
[2020-01-26 21:27] LABS: URINE CREATININE 137.3 mg/dL (15-278)
--- NOTE | 2020-01-26 22:25 | PDOC CONSULTATION ---
Consultation Consult Date: 01/26/20 Provider Consulted: LAURA PEÑA Consult reason:: Ileus versus small bowel obstruction History of Present Illness Admission Date/PCP: PATRICIA MESSINA MD History of Present Illness: CHRISTY SOW is a 84 year old female Presents emergency department via ground rescue coming from [facility] after being hospitalized at [facility] for approximately 1 week following a fall, fracture of the right femur with ORIF by Dr. Altamirano on 01/15/2020. Postoperatively patient had a CVA. She was transferred to [place] on 01/19/2020 neurologically intact grossly. Over the last several days patient has developed a mental status changes and was brought to the emergency department where she was found to have multiple electrolyte abnormalities renal insufficiency po ssible early sepsis. CT scan of the abdomen and pelvis without oral or IV contrast showed findings consistent with ileus versus small bowel obstruction. Surgery was consulted. Plans are for patient to be admitted to the hospitalist service for renal insufficiency and electrolyte abnormalities. Past Medical History Cardiac Medical History: Denies: Atrial Fibrillation, Coronary Artery Disease, DVT, Hyperlipidema, Hypertension, Pulmonary Embolism Pulmonary Medical History: Denies: Asthma, Chronic Obstructive Pulmonary Disease (COPD) Neurological Medical History: Denies: Seizures Endocrine Medical History: Denies: Diabetes Mellitus Type 1, Diabetes Mellitus Type 2, Hyperthyroidism, Hypothyroidism GI Medical History: Reports: Crohn's Disease Denies: Cirrhosis, Hepatitis Musculoskeltal Medical History: Denies: Fibromyalgia, Gout Skin Medical History: Denies: Eczema, Psoriasis Psychiatric Medical History: Reports: Depression Hematology: Denies: Anemia, Bleeding Tendencies Past Surgical History Past Surgical History: ORIF right hip Past Surgical History: Reports: Orthopedic Surgery - Left hip ORIF Social History Information Source: Patient - Patient unreliable due to mental status changes Smoking Status: Unknown if Ever Smoked Frequency of Alcohol Use: None Hx Recreational Drug Use: No Drugs: None Hx Prescription Drug Abuse: No Family History Family History: None, Reviewed & Not Pertinent Parental Family History Reviewed: No Children Family History Reviewed: No Sibling(s) Family History Reviewed.: No Medication/Allergy Home Medications: Acetaminophen [Tylenol 650 mg Supp] 650 mg [place] Q4HP PRN 14 Days #20 tab 01/19/20 Aspirin [Aspirin 81 mg Chewable Tablet] 81 mg PO DAILY 60 Days #60 tab.chew 01/19/20 Atorvastatin Calcium [Lipitor 80 mg Tablet] 80 mg PO QHS 60 Days #60 tablet 01/19/20 Hydrocodone/Acetaminophen [[place] 5-325 mg Tablet] 1 tab PO Q6HP PRN 5 Days #10 tablet 01/19/20 Lidocaine [Lidoderm 5% (700 mg) Transdermal Patch] 1 patch TP QHS 10 Days #10 adh..patch 01/19/20 Losartan Potassium [Cozaar 50 mg Tablet] 50 mg PO DAILY 60 Days #60 tablet 01/19/20 Rivaroxaban [Xarelto 10 mg Tablet] 10 mg PO WSUPPER 45 Days #45 tablet 01/19/20 Allergies/Adverse Reactions: adalimumab [From Humira] Allergy (Verified 10/29/17 23:51) amoxicillin [From Augmentin] Allergy (Verified 10/29/17 23:51) celecoxib [From Celebrex] Allergy (Verified 10/29/17 23:51) ciprofloxacin [From Cipro] Allergy (Verified 10/29/17 23:51) clavulanic acid [From Augmentin] Allergy (Verified 10/29/17 23:51) infliximab [From Remicade] Allergy (Verified 10/29/17 23:51) metformin Allergy (Verified 10/29/17 23:51) morphine Allergy (Verified 10/29/17 23:51) Sulfa (Sulfonamide Antibiotics) Allergy (Verified 10/29/17 23:51) colchicine Allergy (Uncoded 10/29/17 23:51) Review of Systems ROS unobtainable: Due to mental status Physical Exam Vital Signs: Temp Pulse Resp BP Pulse Ox 18 119/58 L 98 01/26/20 20:28 01/26/20 20:28 01/26/20 20:28 Intake & Output 01/25/20 01/26/20 01/27/20 06:59 06:59 06:59 Weight 75 kg General appearance: PRESENT: mild distress, obese Head exam: PRESENT: normocephalic Eye exam: PRESENT: EOMI Mouth exam: PRESENT: dry mucosa Neck exam: PRESENT: other - No JVD Respiratory exam: PRESENT: rhonchi Cardiovascular exam: PRESENT: RRR GI/Abdominal exam: PRESENT: other - Abdomen soft; hypoactive bowel sounds; no rigidity, no umbilical or groin hernias. minimal abdominal tenderness Rectal exam: PRESENT: deferred Gentrourinary exam: PRESENT: indwelling catheter Extremities exam: PRESENT: other - Dressings removed from right hip and right mid leg laterally, rishi intact no leak, drainage or hematoma Neurological exam: PRESENT: awake, other - Disoriented to person situation Psychiatric exam: PRESENT: other - Disoriented Results Laboratory Results: 01/26/20 18:08 01/26/20 18:08 01/26/20 01/26/20 01/26/20 18:08 18:08 18:08 WBC 11.5 H RBC 3.91 Hgb 12.6 Hct 35.4 L MCV 91 MCH 32.2 MCHC 35.5 RDW 13.5 Plt Count 425 Seg Neutrophils % 84.3 H Sodium 125.8 L Potassium 3.2 L Chloride 87 L Carbon Dioxide 17 L Anion Gap 22 H BUN 100 H Creatinine 3.19 H Est GFR ( Amer) 17 L Glucose 95 Serum Osmolality Lactic Acid 1.0 Calcium 9.3 Total Bilirubin 0.9 AST 27 Alkaline Phosphatase 102 Total Protein 7.1 Albumin 3.9 Urine Osmolality 01/26/20 01/26/20 18:08 20:50 WBC RBC Hgb Hct MCV MCH MCHC RDW Plt Count Seg Neutrophils % Sodium Potassium Chloride Carbon Dioxide Anion Gap BUN Creatinine Est GFR ( Amer) Glucose Serum Osmolality 294 Lactic Acid Calcium Total Bilirubin AST Alkaline Phosphatase Total Protein Albumin Urine Osmolality 354 01/26/20 18:08 Creatine Kinase 64 Impressions: Chest X-Ray 01/26/20 18:17 IMPRESSION: NO ACUTE RADIOGRAPHIC FINDING IN THE CHEST. Head CT 01/26/20 18:19 IMPRESSION: 1. No intracranial hemorrhage or mass lesion. 2. Diffuse global volume loss with white matter changes. The appearance is stable. Abdomen/Pelvis CT 01/26/20 19:42 IMPRESSION: 1. Large retrocardiac hernia containing the stomach. 2. Abnormal bowel gas pattern consistent with distal small bowel obstruction. The site of the obstruction is in the right lower quadrant and no etiology is seen to account for the obstruction. This may be related to adhesions. 3. Postsurgical change of fracture fixation of the hips. This appears recent on the right. Assessment & Plan - Diagnosis (1) Ileus Is this a current diagnosis for this admission?: Yes Plan: Impression: Likely ileus; imaging studies including CT scan of the abdomen and pelvis performed without oral or IV contrast, therefore sensitivity and accuracy limited. No evidence of acute abdomen. Recommendations: 1. IV fluids, electrolyte hinduism via hospital service 2. Clinically suspect ileus to immobility, electrolyte abnormality; will follow with you. No indication for further imaging at this moment (2) WILLIAM (acute kidney injury) Is this a current diagnosis for this admission?: Yes (3) CVA (cerebral vascular accident) Is this a current diagnosis for this admission?: Yes (4) Hyponatremia Is this a current diagnosis for this admission?: Yes (5) Intertrochanteric fracture of right femur Is this a current diagnosis for this admission?: Yes Plan: Status post ORIF Dr. Altamirano 01/15/2020
--- NOTE | 2020-01-26 22:53 | EKG REPORT ---
SEVERITY:- ABNORMAL ECG - SINUS RHYTHM RIGHT BUNDLE BRANCH BLOCK : Confirmed by: Ngozi Campuzano 26-Jan-2020 22:52:28
[2020-01-26 23:38] LABS: APPEARANCE,URINE CLEAR; BILIRUBIN,URINE NEGATIVE (NEGATIVE); COLOR,URINE YELLOW; GLUCOSE, URINE NEGATIVE (NEGATIVE); KETONES,URINE NEGATIVE (NEGATIVE); LEUKOCYTE ESTERASE,URINE NEGATIVE (NEGATIVE); NITRITE,URINE NEGATIVE (NEGATIVE); PROTEIN,URINE NEGATIVE (NEGATIVE); URINE SPECIFIC GRAVITY 1.013; UROBILINOGEN,URINE NEGATIVE mg/dL (<2.0)
[2020-01-27] MEDS: POTASSI CL 20 MEQ/50 ML RIDER 20 MEQ/50 ML RTUPB IV SCH (00:41)
[2020-01-27] MEDS ORDERED: ACETAMINOPHEN 325 MG TABLET PO PRN (01:42)
[2020-01-27] MEDS ORDERED: ONDANSETRON HCL INJ/PF 4 MG/2 ML SDV IV PRN (01:42)
[2020-01-27] MEDS ORDERED: RINGERS SOLUTION,LACTATED 1,000 ML IV PRN (01:42)
[2020-01-27] MEDS: RINGERS SOLUTION,LACTATED 1,000 ML IV PRN ×2 (02:46→11:37)
--- NOTE | 2020-01-27 02:47 | PDOC H&P ---
History of Present Illness Admission Date/PCP: 01/27/20 00:14 PATRICIA MESSINA MD Patient complains of: Altered mental status History of Present Illness: CHRISTY SOW is a 84 year old female with a history of CVA, hypertension, Crohn's disease and recent right intertrochanteric femoral fracture status post repair with a resident at [facility] now presents to ER with altered mental status. Due to patient's altered mental status history was mainl y from ER physician signout and chart review. Patient thinks that she is here for a follow-up of he had broken hip. She is oriented to person but not to time and place. Per ED physician who saw her during her last admission she is definitely altered from her baseline. Currently she denies pain anywhere, shortness of breath, chest pain, nausea, vomiting. On arrival at the ED patient was hemodynamically stable. Work-up showed mild leukocytosis, sodium 125, potassium 2.9 and a BUN/creatinine of 100/3.19. UA was negative for infection. Chest x-ray was unremarkable. CT head with no contrast was negative for intracranial bleed. CT abdomen without oral contrast was concerning for small bowel obstruction. Patient was evaluated by surgery at the ED and no evidence for acute abdomen at this point and recommended medical management. Of note, patient has been hydrated with 2 L of IV fluid while at the ER and now is being admitted for close observation and monitoring. Past Medical History Cardiac Medical History: Denies: Atrial Fibrillation, Coronary Artery Disease, DVT, Hyperlipidema, Hypertension, Pulmonary Embolism Pulmonary Medical History: Denies: Asthma, Chronic Obstructive Pulmonary Disease (COPD) Neurological Medical History: Denies: Seizures Endocrine Medical History: Denies: Diabetes Mellitus Type 1, Diabetes Mellitus Type 2, Hyperthyroidism, Hypothyroidism GI Medical History: Reports: Crohn's Disease Denies: Cirrhosis, Hepatitis Musculoskeltal Medical History: Denies: Fibromyalgia, Gout Skin Medical History: Denies: Eczema, Psoriasis Psychiatric Medical History: Reports: Depression Hematology: Denies: Anemia, Bleeding Tendencies Past Surgical History Past Surgical History: Reports: Orthopedic Surgery - Left hip ORIF Social History Information Source: [facility] Records Lives with: [facility] Smoking Status: Unknown if Ever Smoked Frequency of Alcohol Use: None Hx Recreational Drug Use: No Drugs: None Hx Prescription Drug Abuse: No - Advance Directive Resuscitation Status: Full Code Family History Family History: Reviewed & Not Pertinent Parental Family History Reviewed: Yes - Patient is altered and unable to give detailed history Children Family History Reviewed: Yes Sibling(s) Family History Reviewed.: Yes Medication/Allergy Home Medications: Acetaminophen [Tylenol 650 mg Supp] 650 mg [place] Q4HP PRN 14 Days #20 tab 01/19/20 Aspirin [Aspirin 81 mg Chewable Tablet] 81 mg PO DAILY 60 Days #60 tab.chew 01/19/20 Atorvastatin Calcium [Lipitor 80 mg Tablet] 80 mg PO QHS 60 Days #60 tablet 01/19/20 Hydrocodone/Acetaminophen [[place] 5-325 mg Tablet] 1 tab PO Q6HP PRN 5 Days #10 tablet 01/19/20 Lidocaine [Lidoderm 5% (700 mg) Transdermal Patch] 1 patch TP QHS 10 Days #10 adh..patch 01/19/20 Losartan Potassium [Cozaar 50 mg Tablet] 50 mg PO DAILY 60 Days #60 tablet Rivaroxaban [Xarelto 10 mg Tablet] 10 mg PO WSUPPER 45 Days #45 tablet 01/19/20 Allergies/Adverse Reactions: adalimumab [From Humira] Allergy (Verified 10/29/17 23:51) amoxicillin [From Augmentin] Allergy (Verified 10/29/17 23:51) celecoxib [From Celebrex] Allergy (Verified 10/29/17 23:51) ciprofloxacin [From Cipro] Allergy (Verified 10/29/17 23:51) clavulanic acid [From Augmentin] Allergy (Verified 10/29/17 23:51) infliximab [From Remicade] Allergy (Verified 10/29/17 23:51) metformin Allergy (Verified 10/29/17 23:51) morphine Allergy (Verified 10/29/17 23:51) Sulfa (Sulfonamide Antibiotics) Allergy (Verified 10/29/17 23:51) colchicine Allergy (Uncoded 10/29/17 23:51) Review of Systems ROS unobtainable: Due to mental status Physical Exam Vital Signs: Temp Pulse Resp BP Pulse Ox 98.3 F 16 122/61 99 01/26/20 22:00 01/27/20 01:01 01/27/20 01:00 01/27/20 01:01 Intake & Output 01/25/20 01/26/20 01/27/20 06:59 06:59 06:59 Intake Total 1050 Balance 1050 Weight 75 kg Additional comments: GENERAL APPEARANCE: Alert and awake but not oriented to time and place. In no acute distress HEENT: Normocephalic and atraumatic. No scleral icterus. Dry oral mucosa NECK: Supple. No lymphadenopathy or tenderness. No carotid bruit. No JVD CHEST: Symmetric. Nontender to palpation. LUNGS: Clear with good air entry bilaterally. No wheezing or crackles appre ciated HEART: Regular rate and rhythm with normal S1 and S2. No murmurs, gallops, or rubs. ABDOMEN: Flat, soft, active bowel sounds, no direct or rebound tenderness. No organomegaly detected. EXTREMITIES: No cyanosis, clubbing, or edema. MUSCULOSKELETAL: No deformity, atrophy or swelling noted PSYCHIATRIC: Patient has altered mental status SKIN: Warm, dry, and well perfused. No lesions or rashes are noted. NEUROLOGIC: Able to move all 4 extremities with minimal limitation of movement of the right lower extremity due to recent surgery Results Laboratory Results: 01/26/20 18:08 01/26/20 18:08 01/26/20 01/26/20 01/26/20 18:08 18:08 18:08 WBC 11.5 H RBC 3.91 Hgb 12.6 Hct 35.4 L MCV 91 MCH 32.2 MCHC 35.5 RDW 13.5 Plt Count 425 Seg Neutrophils % 84.3 H Sodium 125.8 L Potassium 3.2 L Chloride 87 L Carbon Dioxide 17 L Anion Gap 22 H BUN 100 H Creatinine 3.19 H Est GFR ( Amer) 17 L Glucose 95 Serum Osmolality Lactic Acid 1.0 Calcium 9.3 Total Bilirubin 0.9 AST 27 Alkaline Phosphatase 102 Total Protein 7.1 Albumin 3.9 Urine Color Urine Appearance Urine pH Ur Specific [place] Urine Protein Urine Glucose (UA) Urine Ketones Urine Blood Urine Nitrite Ur Leukocyte Esterase Urine WBC (Auto) Urine RBC (Auto) Urine Osmolality 01/26/20 01/26/20 01/26/20 18:08 20:50 20:50 WBC RBC Hgb Hct MCV MCH MCHC RDW Plt Count Seg Neutrophils % Sodium Potassium Chloride Carbon Dioxide Anion Gap BUN Creatinine Est GFR ( Amer) Glucose Serum Osmolality 294 Lactic Acid Calcium Total Bilirubin AST Alkaline Phosphatase Total Protein Albumin Urine Color YELLOW Urine Appearance CLEAR Urine pH 5.0 Ur Specific [place] 1.013 Urine Protein NEGATIVE Urine Glucose (UA) NEGATIVE Urine Ketones NEGATIVE Urine Blood NEGATIVE Urine Nitrite NEGATIVE Ur Leukocyte Esterase NEGATIVE Urine WBC (Auto) 1 Urine RBC (Auto) 0 Urine Osmolality 354 01/26/20 18:08 Creatine Kinase 64 Impressions: Chest X-Ray 01/26/20 18:17 IMPRESSION: NO ACUTE RADIOGRAPHIC FINDING IN THE CHEST. Head CT 01/26/20 18:19 IMPRESSION: 1. No intracranial hemorrhage or mass lesion. 2. Diffuse global volume loss with white matter changes. The appearance is stable. Abdomen/Pelvis CT 01/26/20 19:42 IMPRESSION: 1. Large retrocardiac hernia containing the stomach. 2. Abnormal bowel gas pattern consistent with distal small bowel obstruction. The site of the obstruction is in the right lower quadrant and no etiology is seen to account for the obstruction. This may be related to adhesions. 3. Postsurgical change of fracture fixation of the hips. This appears recent on the right. Assessment and Plan - Diagnosis (1) Acute metabolic encephalopathy Is this a current diagnosis for this admission?: Yes Plan: Patient presents with altered mental status from baseline Metabolic encephalopathy likely due to uremia from acute kidney injury vs acute hyponatremia Has been hemodynamically stable, lactic acid within the normal limit Will treat underlying cause by IV hydration Closely monitor BMP to avoid overcorrection of sodium with a target of 4-6 over 24 hours Fall precaution, aspiration precaution (2) WILLIAM (acute kidney injury) Is this a current diagnosis for this admission?: Yes Plan: Likely due to volume depletion BUN/creatinine was 102/3.19 FeNa: 0.5 suggestive of prerenal cause Patient was hydrated with 2 L LR at the ED Continue IV hydration Continue monitoring renal indices Avoid nephrotoxic's and renally dose medications Nephrology consult in the morning (3) Uremia, acute Is this a current diagnosis for this admission?: Yes Plan: Likely contributing to patient's altered mental status BUN/creatinine 100/3.19 Has anion gap metabolic acidosis Continue management as stated above (4) Volume depletion Is this a current diagnosis for this admission?: Yes Plan: Likely due to poor oral intake Continue IV hydration Closely monitor vitals and BMP (5) Ileus Is this a current diagnosis for this admission?: Yes Plan: CT abdomen without oral contrast(which is less sensitive) was concerning for signs of small bowel obstruction Patient has been evaluated by surgery and has no clinical signs of acute abdomen, likely ileus due to immobility and electrolyte abnormalities Will continue supportive measures, keep her n.p.o. Surgery to re-evaluate her tomorrow (6) Hyponatremia Is this a current diagnosis for this admission?: Yes Plan: Serum sodium level on presentation was 124 On discharge from hospital a week ago he was 134 Likely contributing to change in mental status Continue IV hydration with a goal of correction of 4 to 6 mEq per 24-hour Continue to monitor BMP (7) Hypokalemia Is this a current diagnosis for this admission?: Yes Plan: Serum potassium on presentation was 2.9 which improved to 3.2 after ablation at the ED Will give more potassium chloride supplement Continue monitoring electrolytes (8) CVA (cerebral vascular accident) Is this a current diagnosis for this admission?: Yes Plan: Was diagnosed on her previous admission Currently has no new focal findings Continue aspirin and atorvastatin (9) HTN (hypertension) Qualifiers: Hypertension type: essential hypertension Qualified Code(s): I10 - Essential (primary) hypertension Is this a current diagnosis for this admission?: Yes Plan: Will hold antihypertensive medication for now due to volume depletion (10) Intertrochanteric fracture of right femur Is this a current diagnosis for this admission?: Yes Plan: Continue follow-up with orthopedics Currently patient is on DVT prophylaxis with rivaroxaban for 6 weeks post surgery - Time Time Spent with patient: 35 or more minutes Total Critical Time (Minutes): 45 Medications reviewed and adjusted accordingly: Yes Anticipated Discharge Disposition: [facility] Facility Anticipated Discharge Timeframe: within 48 hours - Inpatient Certification Based on my medical assessment, after consideration of the patient's comorbidit ies, presenting symptoms, or acuity I expect that the services needed warrant INPATIENT care.: Yes I certify that my determination is in accordance with my understanding of Me power's requirements for reasonable and necessary INPATIENT services [42 CFR 412.3e].: Yes Medical Necessity: Significant Comorbidiites Make Outpatient Treatment Too Risky, Need Close Monitoring Due to Risk of Patient Decompensation, Need For IV Fluids, Risk of Complication if Not Cared For in Hospital Post Hospital Care: D/C or Transfer Summary
[2020-01-27] MEDS ORDERED: HEPARIN SOD (PORCINE) 5,000 UNIT/ML 1 ML VIAL SUBCUT SCH (06:00)
[2020-01-27 07:29] LABS: ANION GAP 18 (5-19); BLOOD UREA NITROGEN 95 mg/dL (7-20); CALCIUM 8.5 mg/dL (8.4-10.2); CARBON DIOXIDE 17 mmol/L (22-30); CHLORIDE 93 mmol/L (98-107); GLUCOSE 88 mg/dL (75-110); POTASSIUM 3.4 mmol/L (3.6-5.0)
[2020-01-27] MEDS: FAMOTIDINE 20 MG TABLET PO SCH ×2 (09:49→22:39)
--- NOTE | 2020-01-27 13:07 | PDOC PROGRESS REPORT ---
Subjective Date:: 01/27/20 Subjective:: Lunch tray is in front of the patient. She is actually sleeping but awakens easily. She reports that she is feeling slightly better than last night. Reason For Visit: ACUTE METABOLIC ENCEPHALOPATHY Physical Exam Vital Signs: Temp Pulse Resp BP Pulse Ox 97.4 F 77 18 132/52 H 100 01/27/20 11:49 01/27/20 11:49 01/27/20 11:49 01/27/20 11:49 01/27/20 11:49 Intake & Output 01/26/20 01/27/20 01/28/20 06:59 06:59 06:59 Intake Total 2100 1236 Output Total 50 1100 Balance 2049 136 Weight 75 kg General appearance: PRESENT: no acute distress, cooperative, well-developed Head exam: PRESENT: atraumatic, normocephalic Neck exam: ABSENT: carotid bruit, JVD, lymphadenopathy Respiratory exam: PRESENT: clear to auscultation dorina, symmetrical, unlabored. ABSENT: prolonged expiratory phas, rales, rhonchi, tachypnea, wheezes Cardiovascular exam: PRESENT: bradycardia, diastolic murmur, RRR, +S1, +S2. ABSENT: irregular rhythm, systolic murmur, tachycardia GI/Abdominal exam: PRESENT: normal bowel sounds, soft. ABSENT: distended, guarding, tenderness Rectal exam: PRESENT: deferred Gentrourinary exam: ABSENT: indwelling catheter Extremities exam: ABSENT: pedal edema Musculoskeletal exam: ABSENT: deformity, dislocation Neurological exam: PRESENT: alert, awake, oriented to person, oriented to place, oriented to situation, CN II-XII grossly intact. ABSENT: altered Psychiatric exam: PRESENT: flat affect. ABSENT: agitated, anxious Focused psych exam: ABSENT: delusional, paranoid, restlessness Skin exam: PRESENT: dry, normal color, warm. ABSENT: rash Results Laboratory Results: 01/26/20 18:08 01/27/20 05:35 01/26/20 01/26/20 01/26/20 18:08 18:08 18:08 WBC 11.5 H RBC 3.91 Hgb 12.6 Hct 35.4 L MCV 91 MCH 32.2 MCHC 35.5 RDW 13.5 Plt Count 425 Seg Neutrophils % 84.3 H Sodium 125.8 L Potassium 3.2 L Chloride 87 L Carbon Dioxide 17 L Anion Gap 22 H BUN 100 H Creatinine 3.19 H Est GFR ( Amer) 17 L Glucose 95 Serum Osmolality Lactic Acid 1.0 Calcium 9.3 Magnesium Total Bilirubin 0.9 AST 27 Alkaline Phosphatase 102 Total Protein 7.1 Albumin 3.9 Urine Color Urine Appearance Urine pH Ur Specific [place] Urine Protein Urine Glucose (UA) Urine Ketones Urine Blood Urine Nitrite Ur Leukocyte Esterase Urine WBC (Auto) Urine RBC (Auto) Urine Osmolality 01/26/20 01/26/20 01/26/20 18:08 20:50 20:50 WBC RBC Hgb Hct MCV MCH MCHC RDW Plt Count Seg Neutrophils % Sodium Potassium Chloride Carbon Dioxide Anion Gap BUN Creatinine Est GFR ( Amer) Glucose Serum Osmolality 294 Lactic Acid Calcium Magnesium Total Bilirubin AST Alkaline Phosphatase Total Protein Albumin Urine Color YELLOW Urine Appearance CLEAR Urine pH 5.0 Ur Specific [place] 1.013 Urine Protein NEGATIVE Urine Glucose (UA) NEGATIVE Urine Ketones NEGATIVE Urine Blood NEGATIVE Urine Nitrite NEGATIVE Ur Leukocyte Esterase NEGATIVE Urine WBC (Auto) 1 Urine RBC (Auto) 0 Urine Osmolality 354 01/27/20 05:35 WBC RBC Hgb Hct MCV MCH MCHC RDW Plt Count Seg Neutrophils % Sodium 128.0 L Potassium 3.4 L Chloride 93 L Carbon Dioxide 17 L Anion Gap 18 BUN 95 H Creatinine 2.29 H Est GFR ( Amer) 25 L Glucose 88 Serum Osmolality Lactic Acid Calcium 8.5 Magnesium 1.9 Total Bilirubin AST Alkaline Phosphatase Total Protein Albumin Urine Color Urine Appearance Urine pH Ur Specific [place] Urine Protein Urine Glucose (UA) Urine Ketones Urine Blood Urine Nitrite Ur Leukocyte Esterase Urine WBC (Auto) Urine RBC (Auto) Urine Osmolality 01/26/20 18:08 Creatine Kinase 64 Impressions: Chest X-Ray 01/26/20 18:17 IMPRESSION: NO ACUTE RADIOGRAPHIC FINDING IN THE CHEST. Head CT 01/26/20 18:19 IMPRESSION: 1. No intracranial hemorrhage or mass lesion. 2. Diffuse global volume loss with white matter changes. The appearance is stable. Abdomen/Pelvis CT 01/26/20 19:42 IMPRESSION: 1. Large retrocardiac hernia containing the stomach. 2. Abnormal bowel gas pattern consistent with distal small bowel obstruction. The site of the obstruction is in the right lower quadrant and no etiology is seen to account for the obstruction. This may be related to adhesions. 3. Postsurgical change of fracture fixation of the hips. This appears recent on the right. Assessment and Plan - Diagnosis (1) Acute metabolic encephalopathy Is this a current diagnosis for this admission?: Yes (2) WILLIAM (acute kidney injury) Is this a current diagnosis for this admission?: Yes (3) Uremia, acute Is this a current diagnosis for this admission?: Yes (4) Hypokalemia Is this a current diagnosis for this admission?: Yes (5) Hyponatremia Is this a current diagnosis for this admission?: Yes (6) Ileus Is this a current diagnosis for this admission?: Yes (7) Volume depletion Is this a current diagnosis for this admission?: Yes (8) HTN (hypertension) Qualifiers: Hypertension type: essential hypertension Qualified Code(s): I10 - Essential (primary) hypertension Is this a current diagnosis for this admission?: Yes (9) Intertrochanteric fracture of right femur Qualifiers: Encounter type: sequela Fracture type: closed Is this a current diagnosis for this admission?: Yes (10) History of CVA (cerebrovascular accident) Is this a current diagnosis for this admission?: Yes - Plan Summary Summary: 01/27/2020 Acute metabolic encephalopathy- secondary to dehydration with subsequent renal and electrolyte abnormalities Slowly improving with IV fluids Acute kidney injury with uremia Improved slightly. Appreciate nephrology input. Continue IV fluids. Ileus Appears to be resolved. Continue oral diet. Hyponatremia Continue to monitor. Requires slow correction. Hypokalemia Supplement potassium and monitor electrolytes Hypertension Adequate blood pressure control. Holding losartan at this time. Hip fracture Surgery last week. Incision looks clean and dry. Continue physical therapy. History of CVA Stroke diagnosed on last admission. Continue therapy at this time. - Time Time Spent with patient: 15-24 minutes Medications reviewed and adjusted accordingly: Yes Anticipated Discharge Disposition: Long Term Facility Anticipated Discharge Timeframe: 72 - 96 hours
[2020-01-27] MEDS: SODIUM BICARBONATE 650 MG TABLET PO SCH ×2 (14:31→22:39)
--- NOTE | 2020-01-27 16:01 | PDOC CONSULTATION ---
Consultation Consult Date: 01/27/20 Provider Consulted: ALCIRA NEWBERRY Consult reason:: WILLIAM History of Present Illness Admission Date/PCP: 01/27/20 00:14 PATRICIA MESSINA MD History of Present Illness: CHRISTY SOW is a 84 year old lady with history of recent CVA, hypertension, Crohn's disease and right intertrochanteric femoral fracture requiring hospitalization and ORIF here at [facility] a week ago on 01/15/2020. Patient was discharged to rehab at [place] on 01/19/2020. Patient was brought into the ED last night because of note of altered mental status. Patient is a 4 historian and could not really give me any details of why she was brought into the ED yesterday. Initial work-up included a bland urinalysis, unremarkable chest x-ray, negative CT scan of the head and CT scan of the abdomen without any contrast performed due to abdominal tenderness concerning for small bowel o bstruction. Surgery was consulted and Dr. Monique assessed the patient to likely have an ileus without any evidence of acute abdomen requiring surgical intervention. She also came in with electrolyte abnormalities as well as abnormal kidney function including a BUN of 100, creatinine of 3.19, sodium of 125.8 and potassium of 3.2 with bicarbonate of 17. Patient was given lactated Ringer solution of about 2 L on admission and is still currently going on at this time. Today she has a BUN of 95, creatinine of 2.29, sodium of 128, potassium of 3.4 and bicarbonate of 17 with anion gap of 18. Review of records in January 18, 2020 showed a BUN of 15, creatinine of 0.92 with EGFR 58. Her urinalysis is pretty bland with negative protein and negative blood without any evidence of any infection. Patient has made about 1100 mL of urine output since admission last night. When I saw her today she seems to just got done with her lunch and it looks like she has not eaten much. She admits that she does not have appetite. She denies any complaints including shortness of breath, chest pains, cough, fever, abdominal pain, nausea, vomiting, diarrhea nor any urinary problems. She also could not tell me much of her medical history unfortunately. Past Medical History Cardiac Medical History: Reports: Hypertension-primary Neurological Medical History: Reports: Ischemic CVA Renal/ Medical History: Reports: Chronic Kidney Disease Stage III GI Medical History: Reports: Crohn's Disease Psychiatric Medical History: Reports: Depression Past Surgical History Past Surgical History: Reports: Orthopedic Surgery - Left hip ORIF Social History Information Source: [facility] Records Lives with: Prison Smoking Status: Unknown if Ever Smoked Frequency of Alcohol Use: None Hx Recreational Drug Use: No Drugs: None Hx Prescription Drug Abuse: No - Advance Directive Resuscitation Status: Full Code Family History Family History: Patient is really unable to give any family history. Parental Family History Reviewed: Yes Children Family History Reviewed: Yes Sibling(s) Family History Reviewed.: Yes Medication/Allergy Home Medications: Acetaminophen [Tylenol 650 mg Supp] 650 mg [place] Q4HP PRN 14 Days #20 tab 01/19/20 Aspirin [Aspirin 81 mg Chewable Tablet] 81 mg PO DAILY 60 Days #60 tab.chew 01/19/20 Atorvastatin Calcium [Lipitor 80 mg Tablet] 80 mg PO QHS 60 Days #60 tablet 01/19/20 Hydrocodone/Acetaminophen [[place] 5-325 mg Tablet] 1 tab PO Q6HP PRN 5 Days #10 tablet 01/19/20 Lidocaine [Lidoderm 5% (700 mg) Transdermal Patch] 1 patch TP QHS 10 Days #10 adh..patch 01/19/20 Losartan Potassium [Cozaar 50 mg Tablet] 50 mg PO DAILY 60 Days #60 tablet 01/19/20 Rivaroxaban [Xarelto 10 mg Tablet] 10 mg PO WSUPPER 45 Days #45 tablet 01/19/20 Allergies/Adverse Reactions: adalimumab [From Humira] Allergy (Verified 10/29/17 23:51) amoxicillin [From Augmentin] Allergy (Verified 10/29/17 23:51) celecoxib [From Celebrex] Allergy (Verified 10/29/17 23:51) ciprofloxacin [From Cipro] Allergy (Verified 10/29/17 23:51) clavulanic acid [From Augmentin] Allergy (Verified 10/29/17 23:51) infliximab [From Remicade] Allergy (Verified 10/29/17 23:51) metformin Allergy (Verified 10/29/17 23:51) morphine Allergy (Verified 10/29/17 23:51) Sulfa (Sulfonamide Antibiotics) Allergy (Verified 10/29/17 23:51) colchicine Allergy (Uncoded 10/29/17 23:51) Review of Systems All systems: reviewed and no additional remarkable complaints except as stated Review of Systems: Constitutional: ABSENT: chills, fatigue, fever(s), headache(s), weight gain, weight loss Eyes: ABSENT: visual disturbances Ears: ABSENT: hearing changes Cardiovascular: ABSENT: chest pain, dyspnea on exertion, edema, orthropnea, palpitations Respiratory: ABSENT: cough, dyspnea, hemoptysis Gastrointestinal: ABSENT: abdominal pain, constipation, diarrhea, hematemesis, hematochezia, nausea, vomiting Genitourinary: ABSENT: dysuria, hematuria Musculoskeletal: ABSENT: joint swelling Integumentary: ABSENT: rash, wounds Neurological: ABSENT: abnormal gait, abnormal speech, confusion, dizziness, focal weakness, numbness, syncope Psychiatric: ABSENT: anxiety, depression Endocrine: ABSENT: cold intolerance, heat intolerance, polydipsia, polyuria Hematologic/Lymphatic: ABSENT: easy bleeding, easy bruising, lymphadenopathy Physical Exam Vital Signs: Temp Pulse Resp BP Pulse Ox 97.4 F 77 18 132/52 H 100 01/27/20 11:49 01/27/20 11:49 01/27/20 11:49 01/27/20 11:49 01/27/20 11:49 Intake & Output 01/26/20 01/27/20 01/28/20 06:59 06:59 06:59 Intake Total 2100 1236 Output Total 50 1100 Balance 0 136 Weight 75 kg Exam: General appearance: No acute distress, cooperative, well-developed, well- nourished Head exam: PRESENT: atraumatic, normocephalic Eye exam: PRESENT: Conjunctiva Alfred, EOMI, PERRLA. ABSENT: conjunctival injection, scleral icterus Mouth exam: PRESENT: moist, neck supple, tongue midline Neck exam: PRESENT: full ROM. ABSENT: carotid bruit, JVD, lymphadenopathy, thyromegaly Respiratory exam: PRESENT: clear to auscultation bilaterally. ABSENT: rales, rhonchi, stridor, wheezes Cardiovascular exam: PRESENT: RRR, +S1, +S2. ABSENT: systolic murmur Pulses: PRESENT: normal radial pulses, normal dorsalis pedis pulses GI/Abdominal exam: PRESENT: normal bowel sounds, soft. ABSENT: guarding, mass, tenderness Rectal exam: Deferred Extremities exam: PRESENT: full ROM. ABSENT: calf tenderness, pedal edema Musculoskeletal: PRESENT: full ROM. ABSENT: deformity Neurological exam: PRESENT: alert, Awake, Oriented to person, but not to place nor time, reflexes normal, CN II-XII grossly intact. ABSENT: motor sensory deficit Psychiatric exam: PRESENT: appropriate affect, normal mood. ABSENT: homicidal ideation, suicidal ideation Skin exam: PRESENT: intact, dry, warm. ABSENT: rash Results Laboratory Results: 01/26/20 18:08 01/27/20 05:35 01/26/20 01/26/20 01/26/20 18:08 18:08 18:08 WBC 11.5 H RBC 3.91 Hgb 12.6 Hct 35.4 L MCV 91 MCH 32.2 MCHC 35.5 RDW 13.5 Plt Count 425 Seg Neutrophils % 84.3 H Sodium 125.8 L Potassium 3.2 L Chloride 87 L Carbon Dioxide 17 L Anion Gap 22 H BUN 100 H Creatinine 3.19 H Est GFR ( Amer) 17 L Glucose 95 Serum Osmolality Lactic Acid 1.0 Calcium 9.3 Magnesium Total Bilirubin 0.9 AST 27 Alkaline Phosphatase 102 Total Protein 7.1 Albumin 3.9 Urine Color Urine Appearance Urine pH Ur Specific [place] Urine Protein Urine Glucose (UA) Urine Ketones Urine Blood Urine Nitrite Ur Leukocyte Esterase Urine WBC (Auto) Urine RBC (Auto) Urine Osmolality 01/26/20 01/26/20 01/26/20 18:08 20:50 20:50 WBC RBC Hgb Hct MCV MCH MCHC RDW Plt Count Seg Neutrophils % Sodium Potassium Chloride Carbon Dioxide Anion Gap BUN Creatinine Est GFR ( Amer) Glucose Serum Osmolality 294 Lactic Acid Calcium Magnesium Total Bilirubin AST Alkaline Phosphatase Total Protein Albumin Urine Color YELLOW Urine Appearance CLEAR Urine pH 5.0 Ur Specific [place] 1.013 Urine Protein NEGATIVE Urine Glucose (UA) NEGATIVE Urine Ketones NEGATIVE Urine Blood NEGATIVE Urine Nitrite NEGATIVE Ur Leukocyte Esterase NEGATIVE Urine WBC (Auto) 1 Urine RBC (Auto) 0 Urine Osmolality 354 01/27/20 05:35 WBC RBC Hgb Hct MCV MCH MCHC RDW Plt Count Seg Neutrophils % Sodium 128.0 L Potassium 3.4 L Chloride 93 L Carbon Dioxide 17 L Anion Gap 18 BUN 95 H Creatinine 2.29 H Est GFR ( Amer) 25 L Glucose 88 Serum Osmolality Lactic Acid Calcium 8.5 Magnesium 1.9 Total Bilirubin AST Alkaline Phosphatase Total Protein Albumin Urine Color Urine Appearance Urine pH Ur Specific [place] Urine Protein Urine Glucose (UA) Urine Ketones Urine Blood Urine Nitrite Ur Leukocyte Esterase Urine WBC (Auto) Urine RBC (Auto) Urine Osmolality 01/26/20 18:08 Creatine Kinase 64 Impressions: Chest X-Ray 01/26/20 18:17 IMPRESSION: NO ACUTE RADIOGRAPHIC FINDING IN THE CHEST. Head CT 01/26/20 18:19 IMPRESSION: 1. No intracranial hemorrhage or mass lesion. 2. Diffuse global volume loss with white matter changes. The appearance is stable. Abdomen/Pelvis CT 01/26/20 19:42 IMPRESSION: 1. Large retrocardiac hernia containing the stomach. 2. Abnormal bowel gas pattern consistent with distal small bowel obstruction. The site of the obstruction is in the right lower quadrant and no etiology is seen to account for the obstruction. This may be related to adhesions. 3. Postsurgical change of fracture fixation of the hips. This appears recent on the right. Assessment & Plan - Diagnosis (1) WILLIAM (acute kidney injury) Is this a current diagnosis for this admission?: Yes Plan: Patient is nonoliguric. Most likely secondary to acute prerenal azotemia sec ondary to volume depletion due to poor oral intake. Urinalysis is bland. She has good response with IV fluid hydration. Continue the same for now. Avoid nephrotoxic medications and adjust medications per kidney function. Monitor kidney function and electrolytes daily. (2) Acute metabolic encephalopathy Is this a current diagnosis for this admission?: Yes Plan: This is due to a combination of uremia, and multiple electrolyte abnormalities. (3) Hypokalemia Is this a current diagnosis for this admission?: Yes Plan: Likely due to poor oral intake. Replace. (4) Hyponatremia Is this a current diagnosis for this admission?: Yes Plan: Patient has hyponatremia and hypochloremia consistent with volume depletion. Slowly improving with current IV fluid hydration. Continue the same. (5) Ileus Is this a current diagnosis for this admission?: Yes (6) Uremia, acute Is this a current diagnosis for this admission?: Yes (7) Metabolic acidosis Is this a current diagnosis for this admission?: Yes Plan: Due to WILLIAM. Start sodium bicarbonate 650 mg p.o. twice daily. (8) Volume depletion Is this a current diagnosis for this admission?: Yes Plan: Continue IV fluid hydration. (9) HTN (hypertension) Qualifiers: Hypertension type: essential hypertension Qualified Code(s): I10 - Essential (primary) hypertension Is this a current diagnosis for this admission?: Yes Plan: Controlled. - Notes Notes: Thank you very much for this consultation.
[2020-01-27] MEDS ORDERED: RIVAROXABAN 10 MG TABLET PO SCH (17:00)
--- NOTE | 2020-01-27 19:24 | PDOC PROGRESS REPORT ---
Subjective Date:: 01/27/20 Subjective:: Patient has no complaints, she denies abdominal pain Reason For Visit: ACUTE METABOLIC ENCEPHALOPATHY Physical Exam Vital Signs: Temp Pulse Resp BP Pulse Ox 97.7 F 80 18 124/52 L 100 01/27/20 17:34 01/27/20 17:34 01/27/20 17:34 01/27/20 17:34 01/27/20 17:34 Intake & Output 01/26/20 01/27/20 01/28/20 06:59 06:59 06:59 Intake Total 2100 1354 Output Total 50 1575 Balance 2049 - Weight 75 kg General appearance: PRESENT: no acute distress GI/Abdominal exam: PRESENT: normal bowel sounds, soft, other - Not distended, not tender Results Laboratory Results: 01/26/20 18:08 01/27/20 05:35 01/26/20 01/26/20 01/26/20 18:08 18:08 20:50 Sodium 125.8 L Potassium 3.2 L Chloride 87 L Carbon Dioxide 17 L Anion Gap 22 H BUN 100 H Creatinine 3.19 H Est GFR ( Amer) 17 L Glucose 95 Serum Osmolality 294 Calcium 9.3 Magnesium Total Bilirubin 0.9 AST 27 Alkaline Phosphatase 102 Total Protein 7.1 Albumin 3.9 Urine Color Urine Appearance Urine pH Ur Specific [place] Urine Protein Urine Glucose (UA) Urine Ketones Urine Blood Urine Nitrite Ur Leukocyte Esterase Urine WBC (Auto) Urine RBC (Auto) Urine Osmolality 354 01/26/20 01/27/20 20:50 05:35 Sodium 128.0 L Potassium 3.4 L Chloride 93 L Carbon Dioxide 17 L Anion Gap 18 BUN 95 H Creatinine 2.29 H Est GFR ( Amer) 25 L Glucose 88 Serum Osmolality Calcium 8.5 Magnesium 1.9 Total Bilirubin AST Alkaline Phosphatase Total Protein Albumin Urine Color YELLOW Urine Appearance CLEAR Urine pH 5.0 Ur Specific [place] 1.013 Urine Protein NEGATIVE Urine Glucose (UA) NEGATIVE Urine Ketones NEGATIVE Urine Blood NEGATIVE Urine Nitrite NEGATIVE Ur Leukocyte Esterase NEGATIVE Urine WBC (Auto) 1 Urine RBC (Auto) 0 Urine Osmolality 01/26/20 18:08 Creatine Kinase 64 Impressions: Chest X-Ray 01/26/20 18:17 IMPRESSION: NO ACUTE RADIOGRAPHIC FINDING IN THE CHEST. Head CT 01/26/20 18:19 IMPRESSION: 1. No intracranial hemorrhage or mass lesion. 2. Diffuse global volume loss with white matter changes. The appearance is stable. Abdomen/Pelvis CT 01/26/20 19:42 IMPRESSION: 1. Large retrocardiac hernia containing the stomach. 2. Abnormal bowel gas pattern consistent with distal small bowel obstruction. The site of the obstruction is in the right lower quadrant and no etiology is seen to account for the obstruction. This may be related to adhesions. 3. Postsurgical change of fracture fixation of the hips. This appears recent on the right. Assessment & Plan - Time Anticipated Discharge Disposition: Home, Self Care Anticipated Discharge Timeframe: When patient is stable by the orthopedic viewpoint - Plan Summary Plan Summary: Assessment: S/p surgery CT scan of the abdomen pelvis demonstrated questionable small bowel obstruction Large hiatal hernia with intrathoracic stomach Patient tolerating solid food well without nausea or vomiting today Physical exam shows an unremarkable abdomen Plan: Due to the dissipated symptoms and the benign physical exam, I believe the patient has suffered from an episode of possible ileus which is now resolved. Recommend to advance diet from clear liquid to low residue diet as tolerated. I will sign off, please call me with questions.
[2020-01-27] MEDS ORDERED: POTASSIUM CHLORIDE 10 MEQ TABLET.ER PO ONE (20:00)
[2020-01-27] MEDS ORDERED: ATORVASTATIN CALCIUM 80 MG TABLET PO SCH (22:00)
[2020-01-27] MEDS ORDERED: ATORVASTATIN CALCIUM 40 MG TABLET PO SCH (22:00)
[2020-01-28] MEDS: RINGERS SOLUTION,LACTATED 1,000 ML IV PRN (03:31)
[2020-01-28 07:12] LABS: ANION GAP 12 (5-19); BLOOD UREA NITROGEN 66 mg/dL (7-20); CALCIUM 8.7 mg/dL (8.4-10.2); CARBON DIOXIDE 20 mmol/L (22-30); CHLORIDE 101 mmol/L (98-107); GLUCOSE 107 mg/dL (75-110); PHOSPHORUS 2.6 mg/dL (2.5-4.5); POTASSIUM 3.9 mmol/L (3.6-5.0)
[2020-01-28] MEDS ORDERED: LIDOCAINE 5% (700 MG) TRANSDERMAL ADH..PATCH TP SCH (10:00)
[2020-01-28] MEDS ORDERED: ASPIRIN 81 MG TABLET, ENT COATED PO SCH (10:00)
[2020-01-28] MEDS ORDERED: POTASSIUM CHLORIDE 10 MEQ TABLET.ER PO SCH (10:00)
[2020-01-28] MEDS: FAMOTIDINE 20 MG TABLET PO SCH (10:46)
[2020-01-28] MEDS: SODIUM BICARBONATE 650 MG TABLET PO SCH (10:46)
--- NOTE | 2020-01-28 14:04 | PDOC TRANSFER SUMMARY ---
Impression - Admit/DC Date/PCP Admission Date/Primary Care Provider: 01/27/20 00:14 PATRICIA MESSINA MD Discharge Date: 01/28/20 - Discharge Diagnosis (1) Acute metabolic encephalopathy Is this a current diagnosis for this admission?: Yes (2) WILLIAM (acute kidney injury) Is this a current diagnosis for this admission?: Yes (3) Uremia, acute Is this a current diagnosis for this admission?: Yes (4) Hypokalemia Is this a current diagnosis for this admission?: Yes (5) Hyponatremia Is this a current diagnosis for this admission?: Yes (6) Ileus Is this a current diagnosis for this admission?: Yes (7) Volume depletion Is this a current diagnosis for this admission?: Yes (8) HTN (hypertension) Is this a current diagnosis for this admission?: Yes (9) Intertrochanteric fracture of right femur Is this a current diagnosis for this admission?: Yes (10) History of CVA (cerebrovascular accident) Is this a current diagnosis for this admission?: Yes - Assessment Summary: 01/27/2020 Acute metabolic encephalopathy- secondary to dehydration with subsequent renal and electrolyte abnormalities Slowly improving with IV fluids Acute kidney injury with uremia Improved slightly. Appreciate nephrology input. Continue IV fluids. Ileus Appears to be resolved. Continue oral diet. Hyponatremia Continue to monitor. Requires slow correction. Hypokalemia Supplement potassium and monitor electrolytes Hypertension Adequate blood pressure control. Holding losartan at this time. Hip fracture Surgery last week. Incision looks clean and dry. Continue physical therapy. History of CVA Stroke diagnosed on last admission. Continue therapy at this time. - Additional Information Resuscitation Status: Full Code Discharge Diet: Cardiac, Other (Comments) - Start with low residue advance as tolerated Discharge Activity: Activity As Tolerated - Continue physical therapy Referrals: PATRICIA MESSINA MD [Primary Care Provider] - Follow up as needed Home Medications: Atorvastatin Calcium [Lipitor 80 mg Tablet] 80 mg PO QHS 60 Days #60 tablet 01/19/20 Losartan Potassium [Cozaar 50 mg Tablet] 50 mg PO DAILY 60 Days #60 tablet 01/19/20 Rivaroxaban [Xarelto 10 mg Tablet] 10 mg PO WSUPPER 45 Days #45 tablet 01/19/20 Aspirin [Ecotrin 81 mg EC Tablet] 81 mg PO DAILY 01/27/20 Lidocaine [Lidoderm 5% (700 mg) Transdermal Patch] 1 patch TP DAILY 01/27/20 Potassium Chloride [Klor-Con 10 Meq Tablet ER] 20 meq PO Q12 tablet.er 01/28/20 Rivaroxaban [Xarelto 10 mg Tablet] 10 mg PO WSUPPER tablet 01/28/20 Sodium Bicarbonate [Sodium Bicarbonate 650 mg Tablet] 650 mg PO Q12 tablet 01/28/20 History of Present Illiness History of Present Illness: CHRISTY SOW is a 84 year old female with a history of CVA, hypertension, Crohn's disease and recent right intertrochanteric femoral fracture status post repair with a resident at [facility] now presents to ER with altered mental status. Due to patient's altered mental status history was mainly from ER physician signout and chart review. Patient thinks that she is here for a follow-up of he had broken hip. She is oriented to person but not to time and place. Per ED physician who saw her during her last admission she is definitely altered from her baseline. Currently she denies pain anywhere, shortness of breath, chest pain, nausea, vomiting. On arrival at the ED patient was hemodynamically stable. Work-up showed mild leukocytosis, sodium 125, potassium 2.9 and a BUN/creatinine of 100/3.19. UA was negative for infection. Chest x-ray was unremarkable. CT head with no contrast was negative for intracranial bleed. CT abdomen without oral contrast was concerning for small bowel obstruction. Patient was evaluated by surgery at the ED and no evidence for acute abdomen at this point and recommended medical management. Of note, patient has been hydrated with 2 L of IV fluid while at the ER and now is being admitted for close observation and monitoring. Hospital Course Hospital Course: With aggressive IV fluids the patient's serum creatinine corrected and the BUN is improving. She needs to be monitored to make sure that she is drinking at least 2 L of fluid daily. Ileus was likely due to dehydration and has resolved. Physical Exam Vital Signs: Temp Pulse Resp BP Pulse Ox 97.7 F 79 17 135/52 H 99 01/28/20 11:38 01/28/20 11:38 01/28/20 11:38 01/28/20 11:38 01/28/20 11:38 Intake & Output 01/27/20 01/28/20 01/29/20 06:59 06:59 06:59 Intake Total 2100 2354 118 Output Total 50 5092 677 Balance 3122 -556 -711 Weight 75 kg 75 kg General appearance: PRESENT: no acute distress Head exam: PRESENT: atraumatic, normocephalic Respiratory exam: PRESENT: clear to auscultation dorina, symmetrical, unlabored. ABSENT: rales, rhonchi, tachypnea, wheezes Cardiovascular exam: PRESENT: RRR, +S1, +S2. ABSENT: bradycardia, diastolic murmur, irregular rhythm, systolic murmur, tachycardia GI/Abdominal exam: PRESENT: normal bowel sounds, soft. ABSENT: distended, guarding, tenderness Rectal exam: PRESENT: deferred Extremities exam: ABSENT: pedal edema Neurological exam: PRESENT: alert, awake, oriented to person, oriented to place, oriented to situation Psychiatric exam: PRESENT: appropriate affect. ABSENT: agitated, anxious Focused psych exam: ABSENT: delusional, paranoid, restlessness Results Laboratory Results: WBC 11.5 10^3/uL (4.0-10.5) H 01/26/20 18:08 RBC 3.91 10^6/uL (3.72-5.28) 01/26/20 18:08 Hgb 12.6 g/dL (12.0-15.5) 01/26/20 18:08 Hct 35.4 % (36.0-47.0) L 01/26/20 18:08 MCV 91 fl (80-97) 01/26/20 18:08 MCH 32.2 pg (27.0-33.4) 01/26/20 18:08 MCHC 35.5 g/dL (32.0-36.0) 01/26/20 18:08 RDW 13.5 % (11.5-14.0) 01/26/20 18:08 Plt Count 425 10^3/uL (150-450) 01/26/20 18:08 Lymph % (Auto) 8.5 % (13-45) L 01/26/20 18:08 [place] % (Auto) 6.8 % (3-13) 01/26/20 18:08 Eos % (Auto) 0.2 % (0-6) 01/26/20 18:08 Baso % (Auto) 0.2 % (0-2) 01/26/20 18:08 Absolute Neuts (auto) 9.7 10^3/uL (1.7-8.2) H 01/26/20 18:08 Absolute Lymphs (auto) 1.0 10^3/uL (0.5-4.7) 01/26/20 18:08 Absolute Monos (auto) 0.8 10^3/uL (0.1-1.4) 01/26/20 18:08 Absolute Eos (auto) 0.0 10^3/uL (0.0-0.6) 01/26/20 18:08 Absolute Basos (auto) 0.0 10^3/uL (0.0-0.2) 01/26/20 18:08 Seg Neutrophils % 84.3 % (42-78) H 01/26/20 18:08 Sodium 132.9 mmol/L (137-145) L 01/28/20 05:46 Potassium 3.9 mmol/L (3.6-5.0) 01/28/20 05:46 Chloride 101 mmol/L (98-107) 01/28/20 05:46 Carbon Dioxide 20 mmol/L (22-30) L 01/28/20 05:46 Anion Gap 12 (5-19) 01/28/20 05:46 BUN 66 mg/dL (7-20) H 01/28/20 05:46 Creatinine 1.11 mg/dL (0.52-1.25) 01/28/20 05:46 Est GFR ( Amer) 57 (>60) L 01/28/20 05:46 Est GFR (MDRD) Non-Af 47 (>60) L 01/28/20 05:46 Glucose 107 mg/dL (75-110) 01/28/20 05:46 POC Glucose 102 mg/dL (70-110) 01/26/20 18:11 Serum Osmolality 294 mOsm/kg (275-301) 01/26/20 18:08 Lactic Acid 1.0 mmol/L (0.7-2.1) 01/26/20 18:08 Calcium 8.7 mg/dL (8.4-10.2) 01/28/20 05:46 Phosphorus 2.6 mg/dL (2.5-4.5) 01/28/20 05:46 Magnesium 1.9 mg/dL (1.6-2.3) 01/27/20 05:35 Total Bilirubin 0.9 mg/dL (0.2-1.3) 01/26/20 18:08 Direct Bilirubin 0.4 mg/dL (0.0-0.4) 01/26/20 18:08 Neonat Total Bilirubin Not Reportable 01/26/20 18:08 Neonat Direct Bilirubin Not Reportable 01/26/20 18:08 Neonat Indirect Bili Not Reportable 01/26/20 18:08 AST 27 U/L (14-36) 01/26/20 18:08 ALT 9 U/L (<35) 01/26/20 18:08 Alkaline Phosphatase 102 U/L (38-126) 01/26/20 18:08 Creatine Kinase 64 U/L (30-135) 01/26/20 18:08 Total Protein 7.1 g/dL (6.3-8.2) 01/26/20 18:08 Albumin 3.0 g/dL (3.5-5.0) L 01/28/20 05:46 Urine Color YELLOW 01/26/20 20:50 Urine Appearance CLEAR 01/26/20 20:50 Urine pH 5.0 (5.0-9.0) 01/26/20 20:50 Ur Specific [place] 1.013 01/26/20 20:50 Urine Protein NEGATIVE mg/dL (NEGATIVE) 01/26/20 20:50 Urine Glucose (UA) NEGATIVE mg/dL (NEGATIVE) 01/26/20 20:50 Urine Ketones NEGATIVE mg/dL (NEGATIVE) 01/26/20 20:50 Urine Blood NEGATIVE (NEGATIVE) 01/26/20 20:50 Urine Nitrite NEGATIVE (NEGATIVE) 01/26/20 20:50 Urine Bilirubin NEGATIVE (NEGATIVE) 01/26/20 20:50 Urine Urobilinogen NEGATIVE mg/dL (<2.0) 01/26/20 20:50 Ur Leukocyte Esterase NEGATIVE (NEGATIVE) 01/26/20 20:50 Urine WBC (Auto) 1 /HPF 01/26/20 20:50 Urine RBC (Auto) 0 /HPF 01/26/20 20:50 Squamous Epi Cells Auto 1 /HPF 01/26/20 20:50 Urine Mucus (Auto) RARE /LPF 01/26/20 20:50 Urine Osmolality 354 mOsm/kg (300-900) 01/26/20 20:50 Urine Creatinine 137.3 mg/dL (15-278) 01/26/20 20:50 Urine Sodium 25 mmol/L (30-90) L 01/26/20 20:50 Urine Ascorbic Acid NEGATIVE (NEGATIVE) 01/26/20 20:50 Impressions: Chest X-Ray 01/26/20 18:17 IMPRESSION: NO ACUTE RADIOGRAPHIC FINDING IN THE CHEST. Head CT 01/26/20 18:19 IMPRESSION: 1. No intracranial hemorrhage or mass lesion. 2. Diffuse global volume loss with white matter changes. The appearance is stable. Abdomen/Pelvis CT 01/26/20 19:42 IMPRESSION: 1. Large retrocardiac hernia containing the stomach. 2. Abnormal bowel gas pattern consistent with distal small bowel obstruction. The site of the obstruction is in the right lower quadrant and no etiology is seen to account for the obstruction. This may be related to adhesions. 3. Postsurgical change of fracture fixation of the hips. This appears recent on the right. Plan Health Concerns: Inadequate fluid intake Plan of Treatment: Need to encourage patient to drink at least 2 L of water daily. Repeat serum chemistries in 48 hours to reassess. Resume therapies at shelter facility. Goals: Maintain adequate hydration and continue recovery from recent hip fracture and previous stroke Time Spent: Greater than 30 Minutes Stroke Is this a Stroke Patient?: No Acute Heart Failure Is this a Heart Failure Patient?: No
[2020-01-28 15:44] VITALS: BP 125/56
== END 2020-01-28 16:34 ==
LOC: ER 17:55 → INTOOBSV 01-27 00:14 → EH 01-27 00:14 → 4W 01-27 01:51
PROVIDERS: ADMIT Student in an Organized Health Care Education/Training Program; ATTEND Hospitalist
DX: G93.41 Metabolic encephalopathy (principal); I12.9 Hypertensive chronic kidney disease with stage 1 through stage 4 chronic kidney disease, or unspecified chronic kidney disease; N18.30 Chronic kidney disease, stage 3 unspecified; N17.9 Acute kidney failure, unspecified; E87.6 Hypokalemia; E87.1 Hypo-osmolality and hyponatremia; K56.7 Ileus, unspecified; E86.9 Volume depletion, unspecified; S72.141D Displaced intertrochanteric fracture of right femur, subsequent encounter for closed fracture with routine healing; X58.XXXD Exposure to other specified factors, subsequent encounter; D72.829 Elevated white blood cell count, unspecified; E66.9 Obesity, unspecified; Z86.73 Personal history of transient ischemic attack (TIA), and cerebral infarction without residual deficits; K50.90 Crohn's disease, unspecified, without complications; Z79.899 Other long term (current) drug therapy; Z79.82 Long term (current) use of aspirin; Z79.01 Long term (current) use of anticoagulants; Z96.698 Presence of other orthopedic joint implants
CPT/HCPCS: 93005; 99285; 96365; 96366; 80069; 36415 ×3; 82962; 82550; 83605; 83735; 83930; 82570; 83935; 84300; 87070; 80048; 81001; 71045; 70450; 74176; 93010; 97530; 97110; 97163; G0378 ×3; A9270 ×11; J3480 ×2; J7120 ×3

== ENCOUNTER 2020-02-28 14:08 | Emergency (ER) | payer MEDICARE, OTHER ==
[2020-02-28 15:12] LABS: ABSOLUTE EOSINOPHILS # (AUTO) 0.1 10^3/uL (0.0-0.6); ABSOLUTE LYMPHOCYTES (AUTO) 0.5 10^3/uL (0.5-4.7); ABSOLUTE MONOCYTES (AUTO) 0.4 10^3/uL (0.1-1.4); ABSOLUTE NEUT (AUTO) 8.5 10^3/uL (1.7-8.2); BASOPHILS % (AUTO) 0.5 % (0-2); EOSINOPHILS % (AUTO) 0.8 % (0-6); HEMATOCRIT 37.2 % (36.0-47.0); HEMOGLOBIN 12.3 g/dL (12.0-15.5); LYMPHOCYTES % (AUTO) 5.2 % (13-45); MEAN CORPUSCULAR HEMOGLOBIN 30.9 pg (27.0-33.4); MEAN CORPUSCULAR VOLUME 94 fl (80-97); MONOCYTES % (AUTO) 3.8 % (3-13); PLATELET COUNT 246 10^3/uL (150-450); RED BLOOD COUNT 3.98 10^6/uL (3.72-5.28); RED CELL DISTRIBUTION WIDTH 14.4 % (11.5-14.0); SEGMENTED NEUTROPHILS % (AUTO) 89.7 % (42-78); TOTAL CELLS COUNTED % (AUTO) 100 %; WHITE BLOOD COUNT 9.5 10^3/uL (4.0-10.5)
[2020-02-28 15:35] LABS: ALBUMIN 4.5 g/dL (3.5-5.0); ALKALINE PHOSPHATASE 166 U/L (38-126); ANION GAP 13 (5-19); ASPARTATE AMINO TRANSFERASE 34 U/L (14-36); BILIRUBIN,DIRECT 0.2 mg/dL (0.0-0.4); BILIRUBIN,TOTAL 0.8 mg/dL (0.2-1.3); BLOOD UREA NITROGEN 17 mg/dL (7-20); CALCIUM 10.3 mg/dL (8.4-10.2); CARBON DIOXIDE 20 mmol/L (22-30); CHLORIDE 102 mmol/L (98-107); GLUCOSE 177 mg/dL (75-110); POTASSIUM 4.7 mmol/L (3.6-5.0); TOTAL PROTEIN 8.2 g/dL (6.3-8.2)
[2020-02-28 15:37] LABS: ALCOHOL < 10 mg/dL (NONE DETECTED)
[2020-02-28] MEDS ORDERED: NORMAL SALINE 1000 ML 1,000 ML IV ONE (17:50)
[2020-02-28] MEDS ORDERED: LEVETIRACETAM 1000 MG/NACL-ISO 1,000 MG/100 ML RTUPB IV ONE (17:51)
[2020-02-28 18:18] LABS: INTERNATIONAL RATION (INR) 1.44; PROTHROMBIN TIME 17.7 SEC (11.4-15.4)
--- NOTE | 2020-02-28 19:15 | ER Document Report ---
Entered by YULIANA BENTON SCRIBE 02/28/20 1744 Acting as scribe for:DOUG HARRIS MD ED Seizure - General Chief Complaint: Seizure Stated Complaint: POSSIBLE SEIZURE Time Seen by Provider: 02/28/20 17:25 Primary Care Provider: MARCOS LIU MD [NO LOCAL MD] - Follow up in 3-5 days Mode of Arrival: Ambulatory Information source: Patient Notes: This 84 year old female patient presents to the emergency department today with complaints of a seizure prior to arrival. Daughter reports that the patient had a generalized shaking seizure that last less than one minute. She was postictal for 5-10 minutes and then slowly came around. This occurred after she had gotten her out of the bath and was placing her in her wheelchair. This patient was seen at this facility on 01/12 for a hip fracture. At some point on the she became confused and unsteady on her and feet so an MRI was performed that revealed an acute stroke. Patient was discharged to [facility] for rehab and came back from the correction on 01/25 with a BUN of 100 and c reatnine was 3.19. On 02/18 the daughter took her out of the correction to continue rehabbing at home. - Related Data Allergies/Adverse Reactions: adalimumab [From Humira] Allergy (Verified 02/28/20 14:19) amoxicillin [From Augmentin] Allergy (Verified 02/28/20 14:19) celecoxib [From Celebrex] Allergy (Verified 02/28/20 14:19) ciprofloxacin [From Cipro] Allergy (Verified 02/28/20 14:19) clavulanic acid [From Augmentin] Allergy (Verified 02/28/20 14:19) infliximab [From Remicade] Allergy (Verified 02/28/20 14:19) metformin Allergy (Verified 02/28/20 14:19) morphine Allergy (Verified 02/28/20 14:19) Sulfa (Sulfonamide Antibiotics) Allergy (Verified 02/28/20 14:19) colchicine Allergy (Uncoded 02/28/20 14:19) Home Medications: zarelto, remicaid, losartan, lipitor, K-Dur, Sodium bicarb Past Medical History - General Information source: Patient - Social History Smoking Status: Former Smoker Cigarette use (# per day): No Chew tobacco use (# tins/day): No Frequency of alcohol use: Occasional Drug Abuse: None Family History: Reviewed & Not Pertinent Patient has homicidal ideation: No - Past Medical History Cardiac Medical History: Reports: Hx Hypercholesterolemia, Hx Hypertension GI Medical History: Reports: Hx Crohn's Disease Psychiatric Medical History: Reports: Hx Depression Past Surgical History: Reports: Hx Appendectomy, Hx Cholecystectomy, Hx Orthopedic Surgery - Bilateral hip ORIF Review of Systems - Review of Systems Constitutional: No symptoms reported EENT: No symptoms reported Cardiovascular: No symptoms reported Respiratory: No symptoms reported Gastrointestinal: No symptoms reported Genitourinary: No symptoms reported Female Genitourinary: No symptoms reported Musculoskeletal: No symptoms reported Skin: No symptoms reported Hematologic/Lymphatic: No symptoms reported Neurological/Psychological: See HPI, Seizure -: Yes All other systems reviewed and negative Physical Exam - Vital signs Vitals: Temp Resp BP Pulse Ox 97.4 F 19 102/65 98 02/28/20 14:23 02/28/20 14:23 02/28/20 14:23 02/28/20 14:23 - Notes Notes: Physical Exam: General: Alert, appears age appropriate. HEENT: Normocephalic. Atraumatic. PERRL. Extraocular movements intact. Oropharynx clear. Neck: Supple. Non-tender. Respiratory: No respiratory distress. Clear and equal breath sounds bilaterally. Cardiovascular: Regular rate and rhythm. Abdominal: Normal Inspection. Non-tender. No distension. Normal Bowel Sounds. Back: No gross abnormalities. Extremities: Moves all four extremities. Upper extremities: LUE weakness at baseline. Normal ROM. Lower extremities: LLE weakness at baseline. No edema. Normal ROM. Neurological: Normal cognition. AAOx4. Normal speech. Minor difficulty with picking up her cellphone off the bed. Psychological: Normal affect. Normal Mood. Skin: Warm. Dry. Normal color. Course - Re-evaluation Re-evalutation: 02/28/20 19:52 The patient's chart reports she is allergic to amoxicillin from Augmentin. It is likely adverse reaction to clavulanic acid. When she was here for her fractured hip, she was given cefazolin several times. She will be given ceftriaxone now for her urinary tract infection. 02/28/20 21:35 I spoke with the patient's daughter a few moments ago. I let her know that her mother would be ready to come home as soon as we can get transport available. She tells me that she does not think she is allergic to amoxicillin but thinks she had a reaction to Augmentin. - Vital Signs Vital signs: Temp Pulse Resp BP Pulse Ox 97.4 F 18 120/67 97 02/28/20 14:23 02/28/20 21:00 02/28/20 20:01 02/28/20 20:01 - Laboratory Results Result Diagrams: 02/28/20 14:40 02/28/20 14:40 Laboratory Results Interpreted: 02/28/20 02/28/20 02/28/20 14:40 14:40 14:40 RDW 14.4 H Lymph % (Auto) 5.2 L Absolute Neuts (auto) 8.5 H Seg Neutrophils % 89.7 H PT 17.7 H Sodium 134.9 L Carbon Dioxide 20 L Est GFR ( Amer) 53 L Est GFR (MDRD) Non-Af 44 L Glucose 177 H Calcium 10.3 H Alkaline Phosphatase 166 H Urine Protein Urine Ketones Urine Blood Urine Nitrite Ur Leukocyte Esterase 02/28/20 18:47 RDW Lymph % (Auto) Absolute Neuts (auto) Seg Neutrophils % PT Sodium Carbon Dioxide Est GFR ( Amer) Est GFR (MDRD) Non-Af Glucose Calcium Alkaline Phosphatase Urine Protein 100 H Urine Ketones TRACE H Urine Blood SMALL H Urine Nitrite POSITIVE H Ur Leukocyte Esterase LARGE H Critical Laboratory Results Reviewed: No Critical Results - Radiology Results Critical Radiology Results Reviewed: No Critical Results - CT scan does not show acute process - EKG Interpretation by Me EKG shows normal: Sinus rhythm, [place], Intervals, QRS Complexes, ST-T Waves Rate: Normal - 88 Rhythm: NSR [place]/QRS: RBBB, IVCD When compared to previous EKG there are: No significant change Discharge - Discharge Clinical Impression: Seizure Urinary tract infection Qualifiers: Urinary tract infection type: site unspecified Hematuria presence: with hematuria Qualified Code(s): N39.0 - Urinary tract infection, site not specified Condition: Stable Disposition: HOME, SELF-CARE Additional Instructions: Seizure You have had a seizure. Seizure disorders (epilepsy) of one sort or another affect about one out of 50 people. The seizure occurs because of abnormal electrical activity in the brain. Seizures may be due to drugs and alcohol, strokes, brain injury, or infection. In the most common form of epilepsy, no cause can be found. You will require further evaluation to determine the cause of your seizure, and to determine whether anti-seizure medication is required. This follow-up testing is important, so please call us if you encounter problems with scheduling of tests or appointments. Call the doctor if seizures recur, or if you develop new symptoms such as fever, severe headache, stiff neck, confusion or increasing sleepiness, weakness or numbness, or visual problems. Urinary Tract Infection Your evaluation indicates that you have a urinary tract infection. This is due to germs growing in the bladder. This is a common problem. This infection usually responds quickly to antibiotics. Your antibiotic should be taken exactly as prescribed. Drink plenty of fluids -- three to four quarts a day. Occasionally, a bladder anesthetic will be prescribed to help stop the feeling of urgency until the antibiotic has a chance to clear the infection. This may cause your urine to be dark orange. Certain urine infections require a culture. If the doctor obtained a culture, the results will be back in two days. You should call to see if a change in treatment is needed. A repeat urinalysis after you finish treatment is often recommended. The physician will let you know if further testing is required. Call the doctor if you develop fever, chills, flank pain, inability to urinate, or blood in the urine. Take the medications as prescribed for seizure control and urinary tract infection. Drink plenty of fluids. Follow-up with your primary care provider this week to recheck your urine, and schedule further evaluation of your seizures. RETURN TO THE EMERGENCY ROOM IF ANY NEW OR WORSENING SYMPTOMS. Prescriptions: Cephalexin Monohydrate [Keflex 500 mg Capsule] 500 mg PO TID #20 capsule Levetiracetam [Keppra 500 mg Tablet] 500 mg PO Q12 #60 tablet Referrals: MARCOS LIU MD [NO LOCAL MD] - Follow up in 3-5 days I personally performed the services described in the documentation, reviewed and edited the documentation which was dictated to the scribe in my presence, and it accurately records my words and actions.
[2020-02-28 19:18] LABS: APPEARANCE,URINE CLOUDY; BILIRUBIN,URINE NEGATIVE (NEGATIVE); GLUCOSE, URINE NEGATIVE (NEGATIVE); KETONES,URINE TRACE mg/dL (NEGATIVE); LEUKOCYTE ESTERASE,URINE LARGE (NEGATIVE); NITRITE,URINE POSITIVE (NEGATIVE); PROTEIN,URINE 100 mg/dL (NEGATIVE); URINE SPECIFIC GRAVITY 1.012; UROBILINOGEN,URINE NEGATIVE mg/dL (<2.0)
[2020-02-28 19:19] LABS: COLOR,URINE DARK YELLOW
[2020-02-28] MEDS ORDERED: CEFTRIAXONE 1 GM/D5W RTU 1 GM/50 ML RTUPB IV ONE (19:51)
--- NOTE | 2020-02-28 21:24 | RADIOLOGY REPORT (SQ) ---
EXAM DESCRIPTION: CT HEAD WITHOUT CLINICAL HISTORY: 84 years Female, New onset seizures, recent CVA COMPARISON: None. TECHNIQUE: Axial images of the head were performed without the use of intravenous contrast, with sagittal and coronal reformatted images. This exam was performed according to our departmental dose-optimization program which includes use of Automated Exposure Control, adjustment of the mA and/or kV according to patient size and/or use of iterative reconstruction technique. FINDINGS: No evidence of acute hemorrhage or infarct. No evidence of mass or hydrocephalus. There is cortical atrophy and chronic white matter ischemic changes. IMPRESSION: No acute finding.
[2020-02-28 23:15] VITALS: BP 133/66
--- NOTE | 2020-03-01 00:21 | EKG REPORT ---
SEVERITY:- ABNORMAL ECG - SINUS RHYTHM PROBABLE LEFT ATRIAL ABNORMALITY IVCD, CONSIDER ATYPICAL RBBB CONSIDER ANTERIOR INFARCT : Confirmed by: Ngozi Campuzano 01-Mar-2020 00:20:57
== END 2020-02-28 23:17 | disposition home or self-care (01) ==
LOC: ER 14:08
DX: R56.9 Unspecified convulsions (principal); N39.0 Urinary tract infection, site not specified; R31.9 Hematuria, unspecified; E78.00 Pure hypercholesterolemia, unspecified; I10 Essential (primary) hypertension; I45.10 Unspecified right bundle-branch block; K50.90 Crohn's disease, unspecified, without complications; Z79.01 Long term (current) use of anticoagulants; Z87.891 Personal history of nicotine dependence; Z88.8 Allergy status to other drugs, medicaments and biological substances; Z88.0 Allergy status to penicillin; Z88.1 Allergy status to other antibiotic agents; Z88.6 Allergy status to analgesic agent; Z88.5 Allergy status to narcotic agent; Z88.2 Allergy status to sulfonamides
CPT/HCPCS: 93005; 99285; 96361; 51701; 96365; 36415; 87040; 87086; 80307; 82550; 83735; 85025; 85610; 87077; 87088; 80053; 81001; 84484; 87150 ×26; 70450; 93010; J7030; J0696; J1953; 87186

== ENCOUNTER 2020-03-15 12:03 | Inpatient (IN) | payer MEDICARE, OTHER ==
--- NOTE | 2020-03-15 12:43 | EKG REPORT ---
SEVERITY:- ABNORMAL ECG - SINUS RHYTHM IVCD BASELINE ARTEFACT IMPACTS ASSESSMENT : Confirmed by: Jamil Ordoñez MD 15-Mar-2020 12:42:28
[2020-03-15 12:56] LABS: INTERNATIONAL RATION (INR) 1.84; PROTHROMBIN TIME 21.3 SEC (11.4-15.4)
[2020-03-15 13:02] LABS: ALBUMIN 4.2 g/dL (3.5-5.0); ALKALINE PHOSPHATASE 154 U/L (38-126); ANION GAP 15 (5-19); ASPARTATE AMINO TRANSFERASE 36 U/L (14-36); BILIRUBIN,DIRECT 0.2 mg/dL (0.0-0.4); BILIRUBIN,TOTAL 0.6 mg/dL (0.2-1.3); BLOOD UREA NITROGEN 38 mg/dL (7-20); CALCIUM 9.9 mg/dL (8.4-10.2); CARBON DIOXIDE 16 mmol/L (22-30); CHLORIDE 105 mmol/L (98-107); GLUCOSE 111 mg/dL (75-110); POTASSIUM 4.6 mmol/L (3.6-5.0); TOTAL PROTEIN 7.7 g/dL (6.3-8.2)
[2020-03-15] MEDS ORDERED: NORMAL SALINE 1000 ML 1,000 ML IV ONE (13:08)
[2020-03-15 13:10] LABS: ABSOLUTE BASOPHILS # (AUTO) 0.1 10^3/uL (0.0-0.2); ABSOLUTE EOSINOPHILS # (AUTO) 0.2 10^3/uL (0.0-0.6); ABSOLUTE LYMPHOCYTES (AUTO) 1.6 10^3/uL (0.5-4.7); ABSOLUTE MONOCYTES (AUTO) 0.5 10^3/uL (0.1-1.4); ABSOLUTE NEUT (AUTO) 4.3 10^3/uL (1.7-8.2); BASOPHILS % (AUTO) 1.1 % (0-2); EOSINOPHILS % (AUTO) 2.6 % (0-6); HEMATOCRIT 37.7 % (36.0-47.0); LYMPHOCYTES % (AUTO) 24.1 % (13-45); MEAN CORPUSCULAR HEMOGLOBIN 31.6 pg (27.0-33.4); MEAN CORPUSCULAR HGB CONC 34.4 g/dL (32.0-36.0); MEAN CORPUSCULAR VOLUME 92 fl (80-97); MONOCYTES % (AUTO) 7.1 % (3-13); PLATELET COUNT 242 10^3/uL (150-450); RED BLOOD COUNT 4.11 10^6/uL (3.72-5.28); RED CELL DISTRIBUTION WIDTH 15.1 % (11.5-14.0); SEGMENTED NEUTROPHILS % (AUTO) 65.1 % (42-78); TOTAL CELLS COUNTED % (AUTO) 100 %; WHITE BLOOD COUNT 6.7 10^3/uL (4.0-10.5)
[2020-03-15] MEDS ORDERED: AZTREONAM INJ 1 GM VIAL IV ONE (13:13)
[2020-03-15] MEDS ORDERED: VANCOMYCIN HCL INJ 1000 MG VIAL IV ONE (13:14)
[2020-03-15 13:20] LABS: AMORPHOUS SEDIMENT,URINE 3+ /HPF; BILIRUBIN,URINE NEGATIVE (NEGATIVE); GLUCOSE, URINE NEGATIVE (NEGATIVE); KETONES,URINE TRACE mg/dL (NEGATIVE); PROTEIN,URINE >=500 mg/dL (NEGATIVE); URINE SPECIFIC GRAVITY 1.015
[2020-03-15 13:21] LABS: APPEARANCE,URINE TURBID; COLOR,URINE YELLOW
--- NOTE | 2020-03-15 13:37 | RADIOLOGY REPORT (SQ) ---
EXAM DESCRIPTION: CHEST SINGLE VIEW IMAGES COMPLETED DATE/TIME: 03/15/2020 1:14 pm REASON FOR STUDY: cva COMPARISON: 01/26/2020 EXAM PARAMETERS: NUMBER OF VIEWS: One view. TECHNIQUE: Single frontal radiographic view of the chest acquired. RADIATION DOSE: NA LIMITATIONS: None. FINDINGS: LUNGS AND PLEURA: No opacities, masses or pneumothorax. No pleural effusion. MEDIASTINUM AND HILAR STRUCTURES: No masses. Contour normal. HEART AND VASCULAR STRUCTURES: Heart normal in size. Normal vasculature. BONES: No acute findings. HARDWARE: None in the chest. OTHER: No other significant finding. IMPRESSION: NO ACUTE RADIOGRAPHIC FINDING IN THE CHEST. TECHNICAL DOCUMENTATION: JOB ID: [id number] 2010 [employer]- All Rights Reserved Reading location - IP/workstation name: [email or web address]
--- NOTE | 2020-03-15 13:48 | RADIOLOGY REPORT (SQ) ---
EXAM DESCRIPTION: CT HEAD WITHOUT IMAGES COMPLETED DATE/TIME: 03/15/2020 1:34 pm REASON FOR STUDY: cva/ right facial droop COMPARISON: 02/28/2020 TECHNIQUE: Axial images acquired through the brain without intravenous contrast. Images reviewed wi th bone, brain and subdural windows. Additional sagittal and coronal reconstructions were generated. Images stored on PACS. All CT scanners at this facility use dose modulation, iterative reconstruction, and/or weight based d osing when appropriate to reduce radiation dose to as low as reasonably achievable (ALARA). [facility]: Dose Right [facility]: CareDose [facility]: Dose Right [facility]: Teradose 4D [facility]: [employer] RADIATION DOSE: CT Rad equipment meets quality standard of care and radiation dose reduction techniq ues were employed. CTDIvol: 48.8 mGy. DLP: 860 mGy-cm. mGy. LIMITATIONS: None. FINDINGS: VENTRICLES: Prominent. CEREBRUM: No masses. No hemorrhage. No midline shift. Areas of low density in the white matter mos t likely due to chronic micro-vascular ischemic change. No evidence for acute infarction. CEREBELLUM: No masses. No hemorrhage. No alteration of density. No evidence for acute infarction. EXTRAAXIAL SPACES: Mild age-related involutional change. No fluid collections. No masses. ORBITS AND GLOBE: No intra- or extraconal masses. Normal contour of globe without masses. CALVARIUM: No fracture. PARANASAL SINUSES: No fluid or mucosal thickening. SOFT TISSUES: No mass or hematoma. OTHER: No other significant finding. IMPRESSION: 1. NO EVIDENCE OF INTRACRANIAL HEMORRHAGE OR LARGE VASCULAR TERRITORY INFARCT. IF HIGH CLINICAL CONCERN FOR ACUTE ISCHEMIC EVENT CONSIDER MRI. 2. STABLE MILD CHRONIC CHANGES OF ATROPHY AND MICROVASCULAR ISCHEMIA. EVIDENCE OF ACUTE STROKE: NO. TECHNICAL DOCUMENTATION: JOB ID: [id number] Quality ID # [id number]: Final reports with documentation of one or more dose reduction techniques (e.g., Au tomated exposure control, adjustment of the mA and/or kV according to patient size, use of iterative reconstruction technique) 2010 [employer]- All Rights Reserved Reading location - IP/workstation name: [email or web address]
--- NOTE | 2020-03-15 17:24 | ER Document Report ---
Entered by BOUBACAR JUAREZ SCRIBE 03/15/20 3563 Acting as scribe for:MICHELLE WOOTEN MD ED General - General Chief Complaint: S/S of Possible Stroke Stated Complaint: FACIAL DROOP Primary Care Provider: SAMI DELGADO PA [Primary Care Provider] - Follow up as needed Information source: Emergency Med Personnel, [facility] Records Cannot obtain history due to: Dementia Notes: This 84 year old female patient presents to the emergency department today with arrival by EMS for a right facial droop. Per EMS, patient has history of dementia, multiple TIAs, and was recently admitted to the hospital. Patient's last known well time was around 5-10 pm last night and family member noticed the right facial droop this afternoon. Patient is confused, bedbound, and weak at baseline, with the facial droop being the only new symptom. Patient denies any pain, headache, cough, abdominal pain, or shortness of breath. TRAVEL OUTSIDE OF THE [place] IN LAST 30 DAYS: No - Related Data Allergies/Adverse Reactions: adalimumab [From Humira] Allergy (Verified 03/15/20 13:06) amoxicillin [From Augmentin] Allergy (Verified 03/15/20 13:06) celecoxib [From Celebrex] Allergy (Verified 03/15/20 13:06) ciprofloxacin [From Cipro] Allergy (Verified 03/15/20 13:06) clavulanic acid [From Augmentin] Allergy (Verified 03/15/20 13:06) infliximab [From Remicade] Allergy (Verified 03/15/20 13:06) metformin Allergy (Verified 03/15/20 13:06) morphine Allergy (Verified 03/15/20 13:06) Sulfa (Sulfonamide Antibiotics) Allergy (Verified 03/15/20 13:06) colchicine Allergy (Uncoded 03/15/20 13:06) Past Medical History - General Information source: [facility] Records Cannot obtain history due to: Dementia - Social History Smoking Status: Unknown if Ever Smoked Family History: Reviewed & Not Pertinent - Past Medical History Cardiac Medical History: Reports: Hx Hypercholesterolemia, Hx Hypertension Neurological Medical History: Reports: Hx Seizures GI Medical History: Reports: Hx Crohn's Disease Psychiatric Medical History: Reports: Hx Dementia, Hx Depression Past Surgical History: Reports: Hx Appendectomy, Hx Cholecystectomy, Hx Orthopedic Surgery - Bilateral hip ORIF Review of Systems - Review of Systems -: Yes ROS unobtainable due to patient's medical condition Respiratory: denies: Cough, Short of breath Gastrointestinal: denies: Abdominal pain Neurological/Psychological: Other - right facial droop. denies: Headaches Physical Exam - Vital signs Vitals: Pulse Resp BP Pulse Ox 83 10 L 87/69 L 100 03/15/20 12:44 03/15/20 12:44 03/15/20 12:44 03/15/20 12:44 - General General appearance: Appears well, Alert - HEENT Head: Normocephalic, Atraumatic Eyes: Normal Pupils: PERRL - Respiratory Respiratory status: No respiratory distress Chest status: Nontender Breath sounds: Normal Chest palpation: Normal - Cardiovascular Rhythm: Regular Heart sounds: Normal auscultation Murmur: No - Abdominal Inspection: Normal, Other - soft Distension: No distension Bowel sounds: Normal Tenderness: Nontender - Extremities General upper extremity: Normal inspection. No: Edema General lower extremity: Normal inspection. No: Edema - Neurological Notes: Cooperative with exam and gives full effort for motor exams. Answers questions straightforwardly. 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 Weakness of RUE with limited height arm can lift. Absent gag reflex. Mild facial droop at the right angle of the mouth. Did not attempt coordination exams because of baseline weakness in extremities. - Psychological Associated symptoms: Normal mood Notes: Subdued affect. Cooperative with exam. - Skin Skin Temperature: Warm Skin Moisture: Dry Skin Color: Normal Course - Re-evaluation Re-evalutation: 03/15/20 19:49 Patient is more alert at this time. Resting comfortably. - Vital Signs Vital signs: Temp Pulse Resp BP Pulse Ox 80 12 140/82 H 100 03/15/20 18:00 03/15/20 18:00 03/15/20 18:00 03/15/20 18:00 03/15/20 19:49 Vital signs stable - Laboratory Results Result Diagrams: 03/15/20 11:30 03/15/20 11:30 Laboratory Results Interpreted: 03/15/20 03/15/20 03/15/20 11:30 11:30 11:30 RDW 15.1 H PT 21.3 H Sodium 136.3 L Carbon Dioxide 16 L BUN 38 H Creatinine 2.68 H Est GFR ( Amer) 21 L Est GFR (MDRD) Non-Af 17 L Glucose 111 H Alkaline Phosphatase 154 H Urine Protein Urine Ketones Urine Blood Urine Urobilinogen Leukocyte Esterase Rfl 03/15/20 12:23 RDW PT Sodium Carbon Dioxide BUN Creatinine Est GFR ( Amer) Est GFR (MDRD) Non-Af Glucose Alkaline Phosphatase Urine Protein >=500 H Urine Ketones TRACE H Urine Blood SMALL H Urine Urobilinogen 4.0 H Leukocyte Esterase Rfl LARGE H 03/15/20 19:50 Patient with urinary tract infection and acidosis noted with a CO2 of 16. 03/15/20 19:50 Critical Laboratory Results Reviewed: Yes Attending or Supervising Physician who Reviewed Labs: MICHELLE WOOTEN - Radiology Results Radiology Results Interpreted: 03/15/20 19:51 Chest X-Ray 03/15/20 13:05 IMPRESSION: NO ACUTE RADIOGRAPHIC FINDING IN THE CHEST. Head CT 03/15/20 13:06 IMPRESSION: 1. NO EVIDENCE OF INTRACRANIAL HEMORRHAGE OR LARGE VASCULAR WHITNEY TORY INFARCT. IF HIGH CLINICAL CONCERN FOR ACUTE ISCHEMIC EVENT CONSIDER MRI. 2. STABLE MILD CHRONIC CHANGES OF ATROPHY AND MICROVASCULAR ISCHEMIA. EVIDENCE OF ACUTE STROKE: NO. Chest x-ray no acute radiographic finding in the chest. Head CT shows stable mild chronic changes of atrophy and microvascular ischemia but no evidence of a stroke. Critical Radiology Results Reviewed: No Critical Results - EKG Interpretation by Me Additional EKG results interpreted by me: 03/15/20 19:53 Twelve-lead EKG shows normal sinus rhythm rate of 87 diffuse artifact overlay on this EKG suggested to be repeated there is a normal axis MS intervals within normal range QRS shows prolonged QT interval with intraventricular conduction delay. QT interval slightly prolonged. There is no STEMI on this EKG. Discharge - Discharge Clinical Impression: CVA (cerebral vascular accident), Urinary tract infection, Altered mental status, Hypotension, Sepsis associated hypotension, Decubitus ulcer Condition: Fair Disposition: ADMITTED INPATIENT Admitting Provider: Arianna (Hospitalist) Unit Admitted: Medical Floor Referrals: SAMI DELGADO PA [Primary Care Provider] - Follow up as needed I personally performed the services described in the documentation, reviewed and edited the documentation which was dictated to the scribe in my presence, and it accurately records my words and actions.
[2020-03-15] MEDS ORDERED: NORMAL SALINE 1000 ML 2,000 ML IV ONE (17:49)
[2020-03-15] MEDS ORDERED: ACETAMINOPHEN 650 MG SUPP.RECT PR PRN (18:18)
[2020-03-15] MEDS ORDERED: ONDANSETRON HCL INJ/PF 4 MG/2 ML SDV IV PRN (18:18)
[2020-03-15] MEDS ORDERED: ACETAMINOPHEN 325 MG TABLET PO PRN (18:18)
[2020-03-15] MEDS: CEFTRIAXONE 1 GM/D5W RTU 1 GM/50 ML RTUPB IV SCH (18:52)
--- NOTE | 2020-03-15 19:03 | PDOC H&P ---
History of Present Illness Admission Date/PCP: MENDEZ YOUNG Patient complains of: R facial droop History of Present Illness: CHRISTY SOW is an 84 year old female with PMH of prior CVA, HTN, HLD, Crohn's disease c/b continuous stool incontinence, right intertrochanteric femoral fracture status post repair c/b bed-bound status and sacral decubitus ulcer who presents to ED with altered mental status and right facial droop. History provided by her daughter, Romi, with whom the patient lives. Family notes that she was last seen normal yesterday evening. This morning, they noticed that she had a R facial droop and "couldn't string 2 words together" so they decided to have her brought to the ED. No other known changes at home. No changes in oral intake recently. Of note, she was just discharged from SNF recently. Two weeks ago, when she left [facility], she was able to walk 5-10 feet with a walker. Over the last week, she has become much more weak and debilitated and is "barely able to hold her own weight up." She spends the vast majority of her days in bed. Family is able to get her into a wheelchair for bathing. She is incontinent of stool. She has a known sacral decubitus ulcer for which she receives wound care, and it has been improving in appearance. [facility] is her Home Healthcare provider; she receives RN, wound care and PT services. At baseline, she is "completely lucid," can hold a conversation, but has occasional word-finding difficulties. She still reads and watches the news, and is aware of current events. Past Medical History Cardiac Medical History: Reports: Hyperlipidema, Hypertension Denies: Atrial Fibrillation, Coronary Artery Disease, DVT, Pulmonary Embolism Pulmonary Medical History: Denies: Asthma, Chronic Obstructive Pulmonary Disease (COPD) Neurological Medical History: Reports: Ischemic CVA, Seizures Endocrine Medical History: Denies: Diabetes Mellitus Type 1, Diabetes Mellitus Type 2, Hyperthyroidism, Hypothyroidism GI Medical History: Reports: Crohn's Disease Denies: Cirrhosis, Hepatitis Musculoskeltal Medical History: Denies: Fibromyalgia, Gout Skin Medical History: Denies: Eczema, Psoriasis Psychiatric Medical History: Reports: Dementia, Depression Hematology: Denies: Anemia, Bleeding Tendencies Past Surgical History Past Surgical History: Reports: Appendectomy, Cholecystectomy, Orthopedic Surger y - Bilateral hip ORIF Social History Information Source: Relative Lives with: Family Smoking Status: Unknown if Ever Smoked Frequency of Alcohol Use: None Hx Recreational Drug Use: No Drugs: None Hx Prescription Drug Abuse: No - Advance Directive Resuscitation Status: Do Not Resuscitate Surrogate healthcare decision maker:: Romi sykes Family History Family History: Reviewed & Not Pertinent Parental Family History Reviewed: Yes Children Family History Reviewed: Yes Sibling(s) Family History Reviewed.: Yes Medication/Allergy Home Medications: Atorvastatin Calcium [Lipitor 80 mg Tablet] 80 mg PO QHS 60 Days #60 tablet 01/19/20 Losartan Potassium [Cozaar 50 mg Tablet] 50 mg PO DAILY 60 Days #60 tablet 01/19/20 Rivaroxaban [Xarelto 10 mg Tablet] 10 mg PO WSUPPER 45 Days #45 tablet 01/19/20 Aspirin [Ecotrin 81 mg EC Tablet] 81 mg PO DAILY 01/27/20 Lidocaine [Lidoderm 5% (700 mg) Transdermal Patch] 1 patch TP DAILY 01/27/20 Potassium Chloride [Klor-Con 10 Meq Tablet ER] 20 meq PO Q12 tablet.er 01/28/20 Rivaroxaban [Xarelto 10 mg Tablet] 10 mg PO WSUPPER tablet 01/28/20 Sodium Bicarbonate [Sodium Bicarbonate 650 mg Tablet] 650 mg PO Q12 tablet 01/28/20 Cephalexin Monohydrate [Keflex 500 mg Capsule] 500 mg PO TID #20 capsule 02/28/20 Levetiracetam [Keppra 500 mg Tablet] 500 mg PO Q12 #60 tablet 02/28/20 Allergies/Adverse Reactions: adalimumab [From Humira] Allergy (Verified 03/15/20 13:06) amoxicillin [From Augmentin] Allergy (Verified 03/15/20 13:06) celecoxib [From Celebrex] Allergy (Verified 03/15/20 13:06) ciprofloxacin [From Cipro] Allergy (Verified 03/15/20 13:06) clavulanic acid [From Augmentin] Allergy (Verified 03/15/20 13:06) infliximab [From Remicade] Allergy (Verified 03/15/20 13:06) metformin Allergy (Verified 03/15/20 13:06) morphine Allergy (Verified 03/15/20 13:06) Sulfa (Sulfonamide Antibiotics) Allergy (Verified 03/15/20 13:06) colchicine Allergy (Uncoded 03/15/20 13:06) Review of Systems ROS unobtainable: Due to mental status Physical Exam Vital Signs: Temp Pulse Resp BP Pulse Ox 83 10 L 87/69 L 100 03/15/20 12:44 03/15/20 12:44 03/15/20 12:44 03/15/20 13:02 Intake & Output 03/14/20 03/15/20 03/16/20 06:59 06:59 06:59 Intake Total 1000 Balance 1000 Weight 68.901 kg General appearance: PRESENT: no acute distress, other - opens eyes to voice but does not follow directions or respond Head exam: PRESENT: atraumatic Eye exam: ABSENT: scleral icterus Mouth exam: PRESENT: dry mucosa Throat exam: ABSENT: post pharyngeal erythema Neck exam: ABSENT: JVD Respiratory exam: PRESENT: clear to auscultation dorina, unlabored Cardiovascular exam: PRESENT: RRR GI/Abdominal exam: PRESENT: normal bowel sounds, soft. ABSENT: distended, firm, guarding, rebound, rigid, tenderness Extremities exam: PRESENT: other - L>R leg swelling Neurological exam: PRESENT: altered Psychiatric exam: PRESENT: flat affect Skin exam: PRESENT: other - sacral decub ulcer Results Laboratory Results: 03/15/20 11:30 03/15/20 11:30 03/15/20 03/15/20 03/15/20 11:30 11:30 12:23 WBC 6.7 RBC 4.11 Hgb 13.0 Hct 37.7 MCV 92 MCH 31.6 MCHC 34.4 RDW 15.1 H Plt Count 242 Seg Neutrophils % 65.1 Sodium 136.3 L Potassium 4.6 Chloride 105 Carbon Dioxide 16 L Anion Gap 15 BUN 38 H Creatinine 2.68 H Est GFR ( Amer) 21 L Glucose 111 H Lactic Acid Calcium 9.9 Total Bilirubin 0.6 AST 36 Alkaline Phosphatase 154 H Total Protein 7.7 Albumin 4.2 Urine Color YELLOW Urine Appearance TURBID Urine pH 7.0 Ur Specific Flushing 1.015 Urine Protein >=500 H Urine Glucose (UA) NEGATIVE Urine Ketones TRACE H Urine Blood SMALL H Urine RBC (Auto) >182 03/15/20 03/15/20 13:00 16:08 WBC RBC Hgb Hct MCV MCH MCHC RDW Plt Count Seg Neutrophils % Sodium Potassium Chloride Carbon Dioxide Anion Gap BUN Creatinine Est GFR ( Amer) Glucose Lactic Acid 1.9 0.9 Calcium Total Bilirubin AST Alkaline Phosphatase Total Protein Albumin Urine Color Urine Appearance Urine pH Ur Specific Flushing Urine Protein Urine Glucose (UA) Urine Ketones Urine Blood Urine RBC (Auto) Impressions: Chest X-Ray 03/15/20 13:05 IMPRESSION: NO ACUTE RADIOGRAPHIC FINDING IN THE CHEST. Head CT 03/15/20 13:06 IMPRESSION: 1. NO EVIDENCE OF INTRACRANIAL HEMORRHAGE OR LARGE VASCULAR TERRITORY INFARCT. IF HIGH CLINICAL CONCERN FOR ACUTE ISCHEMIC EVENT CONSIDER MRI. 2. STABLE MILD CHRONIC CHANGES OF ATROPHY AND MICROVASCULAR ISCHEMIA. EVIDENCE OF ACUTE STROKE: NO. Assessment and Plan - Plan Summary Summary: CHRISTY SOW is an 84 year old female with PMH of prior CVA, HTN, HLD, Crohn's disease c/b continuous stool incontinence, right intertrochanteric femoral fracture status post repair c/b bed-bound status and sacral decubitus ulcer who presents to ED with altered mental status and right facial droop. History provided by her daughter, Romi, with whom the patient lives. Family notes that she was last seen normal yesterday evening. This morning, they noticed that she had a R facial droop and "couldn't string 2 words together" so they decided to have her brought to the ED. No other known changes at home. No changes in oral intake recently. Of note, she was just discharged from SNF recently. Two weeks ago, when she left [facility], she was able to walk 5-10 feet with a walker. Over the last week, she has become much more weak and debilitated and is "barely able to hold her own weight up." She spends the vast majority of her days in bed. Family is able to get her into a wheelchair for bathing. She is incontinent of stool. She has a known sacral decubitus ulcer for which she receives wound care, and it has been improving in appearance. [facility] is her Home Healthcare provider; she receives RN, wound care and PT services. Right Facial Droop: unknown etiology. CT scan showed no evidence of acute CVA or bleed. MRI not obtained due to multiple surgical hardware in body. This may be r ecrudescence of symptoms of prior CVA in the s/o infection. Per ED nursing staff, her facial droop has improved in severity during her stay in the ED so far. - NPO - hold home oral medications for now - TAXI SERVICER consult - aspiration precautions Altered Mental Status: At baseline, per her daughter, she is "completely lucid," can hold a conversation, but has occasional word-finding difficulties. She still reads and watches the news, and is aware of current events. Today, she is not responsive to me at all. She will open her eyes to voice, but barely makes eye contact. She does not answer questions or follow commands. Mental status makes it difficult to perform a neurological examination. - CT scan showed no evidence of acute CVA or bleed. MRI not obtained due to mult iple surgical hardware in body. - AMS may be due to infection/dehydration and, if so, anticipate improvement with further treatment. UTI: per ED physician, she was straight catheterized for UA, and her urine appeared purulent. UA has the appearance of an infection. UCx pending. - start ceftriaxone (she has tolerated cephalosporins in the past) Hypotension Dehydration Pre-renal WILLIAM - likely due to infection as family has not noticed change in oral intake recently - BP has normalized with aggressive IVF hydration - continue NS at 200 ml/hr as she continues to appear quite dehydrated on exam and will be NPO - hold home losartan - insert [place] for strict I/O Seizure Disorder - continue home Keppra, convert to IV for now Decubitus Ulcer - wound care - Q2H turns Generalized Weakness - likely due to infection - restart home health services on discharge DVT ppx: heparin - Time Time Spent with patient: 35 or more minutes Anticipated Discharge Disposition: Home with Home Health Anticipated Discharge Timeframe: within 48 hours
--- NOTE | 2020-03-15 21:57 | RADIOLOGY REPORT (SQ) ---
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 HISTORY: 84-year-old patient with left lower extremity pain and swelling. FINDINGS: Normal compressibility and color Doppler images of the left common femoral, femoral, popliteal veins. The visualized soft tissues appear grossly unremarkable. There are no findings to suggest deep vein thrombosis. IMPRESSION: There are no findings to suggest deep vein thrombosis within the left lower extremity.
[2020-03-15] MEDS: HEPARIN SOD (PORCINE) 5,000 UNIT/ML 1 ML VIAL SUBCUT SCH (23:08)
[2020-03-15] MEDS ORDERED: LEVETIRACETAM 500 MG/NACL-ISO 500 MG/100 ML RTUPB IV ONE (23:19)
[2020-03-15] MEDS: LEVETIRACETAM 500 MG/NACL-ISO 500 MG/100 ML RTUPB IV SCH (23:36)
[2020-03-16] MEDS: NORMAL SALINE 1000 ML 1,000 ML IV PRN ×2 (03:08→10:28)
[2020-03-16] MEDS: HEPARIN SOD (PORCINE) 5,000 UNIT/ML 1 ML VIAL SUBCUT SCH ×2 (05:28→15:44)
[2020-03-16 06:35] LABS: HEMATOCRIT 29.3 % (36.0-47.0); MEAN CORPUSCULAR HEMOGLOBIN 31.2 pg (27.0-33.4); MEAN CORPUSCULAR HGB CONC 33.9 g/dL (32.0-36.0); MEAN CORPUSCULAR VOLUME 92 fl (80-97); PLATELET COUNT 164 10^3/uL (150-450); RED BLOOD COUNT 3.18 10^6/uL (3.72-5.28); WHITE BLOOD COUNT 4.3 10^3/uL (4.0-10.5)
[2020-03-16 06:37] LABS: HEMOGLOBIN 9.9 g/dL (12.0-15.5)
[2020-03-16 06:51] LABS: ANION GAP 11 (5-19); BLOOD UREA NITROGEN 30 mg/dL (7-20); CALCIUM 8.5 mg/dL (8.4-10.2); CARBON DIOXIDE 11 mmol/L (22-30); CHLORIDE 116 mmol/L (98-107); GLUCOSE 90 mg/dL (75-110); POTASSIUM 4.2 mmol/L (3.6-5.0)
[2020-03-16 07:06] LABS: FREE T4 (FREE THYROXINE) 1.32 ng/dL (0.78-2.19)
[2020-03-16 07:19] LABS: THYROID STIMULATING HORMONE 2.04 uIU/mL (0.47-4.68)
[2020-03-16] MEDS: LEVETIRACETAM 500 MG/NACL-ISO 500 MG/100 ML RTUPB IV SCH ×2 (10:27→22:13)
--- NOTE | 2020-03-16 13:26 | RADIOLOGY REPORT (SQ) ---
EXAM DESCRIPTION: MRI HEAD WITHOUT IMAGES COMPLETED DATE/TIME: 03/16/2020 12:42 pm REASON FOR STUDY: subacute stroke COMPARISON: 01/14/2020 TECHNIQUE: Multiplanar imaging includes non-contrasted T1, T2, FLAIR, and diffusion with ADC map seq uences. Images stored on PACS. LIMITATIONS: Motion. FINDINGS: ANATOMY: No anomalies. Normal vascular flow voids. Pituitary fossa normal. CSF SPACES: Atrophy induced prominence of ventricles and CSF spaces. CEREBRUM: High signal intensity lesions scattered throughout the white matter on FLAIR imaging with d istribution suggesting micro-vascular ischemic changes. No evidence of hemorrhage, mass, or extraaxi al fluid collection. POSTERIOR FOSSA: Old bilateral cerebellar infarcts. DIFFUSION IMAGING: Small geographic area of abnormal high signal on diffusion in the left insula. Ju st over 10 mm maximum diameter. Dark on ADC map. Similar punctate focus of abnormal signal in the left parietal white matter series 4, image 21. ORBITS: No masses. Globes normal. PARANASAL SINUSES: No fluid levels. Mucosa normal. OTHER: No other significant finding. IMPRESSION: Acute small nonhemorrhagic infarct left insula. Tiny lacunar infarct left parietal whit e matter. EVIDENCE OF ACUTE STROKE: YES. LEFT MCA. TECHNICAL DOCUMENTATION: JOB ID: [id number] 2010 [employer]™- All Rights Reserved Reading location - IP/workstation name: [email or web address]
--- NOTE | 2020-03-16 13:28 | RADIOLOGY REPORT (SQ) ---
EXAM DESCRIPTION: MRA HEAD WITHOUT IMAGES COMPLETED DATE/TIME: 03/16/2020 12:42 pm REASON FOR STUDY: CVA COMPARISON: None. TECHNIQUE: Axial 3-D [id number] acquisition imaging performed through the brain in the area of t he ramona of Mor[place]. Images reformatted using 3-D MIPS. LIMITATIONS: None. FINDINGS: SOURCE IMAGES: See separate report of the same date. 3-D MIP: No aneurysm. No occlusions. No significant stenosis. OTHER: No other significant finding. IMPRESSION: No significant stenosis. TECHNICAL DOCUMENTATION: JOB ID: [id number] 2010 [employer]- All Rights Reserved Reading location - IP/workstation name: [email or web address]
[2020-03-16] MEDS: MAGNESIUM SULFATE/D5W 1 GM/100 ML RTUPB IV SCH ×3 (13:43→16:49)
--- NOTE | 2020-03-16 14:06 | RADIOLOGY REPORT (SQ) ---
EXAM DESCRIPTION: COOKIE SWALLOW IMAGES COMPLETED DATE/TIME: 03/16/2020 1:11 pm REASON FOR STUDY: dysphagia stroke COMPARISON: None. TECHNIQUE: Videofluoroscopic swallowing examination was performed in conjunction with speech patholo gy. Videofluoroscopic imaging was obtained and reviewed and these are the findings: RADIATION DOSE: Fluoro time 2.42 minutes 1 images saved to PACS. LIMITATIONS: None FINDINGS: The patient was brought into the fluoro room and placed upright on a modified barium swall ow chair. The patient was then given multiple consistencies mixed with barium to swallow under live fluoroscopic video guidance. According to the Speech Pathologist there was deep penetration with tra ce aspiration seen with thin barium. Intermittent penetration with trace aspiration was also seen wi th pureed consistency. Honey thick consistency was swallowed without incident. Please refer to the [facility] pathology report for further details. IMPRESSION: DEEP LARYNGEAL PENETRATION WITH TRACE ASPIRATION SEEN WITH THIN BARIUM WELL WITH P UREED CONSISTENCY. PLEASE SEE SPEECH PATHOLOGIST REPORT FOR OTHER FINDINGS AND RECOMMENDATIONS. COMMENT: NONE Quality ID [id number]: Final reports for procedures using fluoroscopy that document radiation exposure keyona rochelle, or exposure time and number of fluorographic images (if radiation exposure indices are not avail able) TECHNICAL DOCUMENTATION: JOB ID: [id number] 2010 [employer] All Rights Reserved Reading location - IP/workstation name: [email or web address]
--- NOTE | 2020-03-16 14:44 | ST Inp Modified Barium Swallow ---
Medical Diagnosis - Medical Diagnoses Medical Diagnosis Description & ICD-10 Code(s): altered mental status, facial droop - ICD-10 Tx Diagnosis Coding (1) Dysphagia ICD-10 Code(s): R13.10 - DYSPHAGIA, UNSPECIFIED (2) Altered mental status ICD-10 Code(s): R41.82 - ALTERED MENTAL STATUS, UNSPECIFIED (3) Decubitus ulcer ICD-10 Code(s): L89.90 - PRESSURE ULCER OF UNSPECIFIED SITE, UNSPECIFIED STAGE (4) Crohn's disease in remission ICD-10 Code(s): K50.90 - CROHN'S DISEASE, UNSPECIFIED, WITHOUT COMPLICATIONS (5) History of CVA (cerebrovascular accident) ICD-10 Code(s): Z86.73 - PRSNL HX OF TIA (TIA), AND CEREB INFRC W/O RESID DEFICITS ST Inpatient MBS - General Date: 03/16/20 Date of Onset: 03/15/20 - History History Obtained From: Other - EMR Medical History: Patient admitted 03/15/2020. PMHx includes CVA, hypertension, Crohn's disease, femoral fracture complicated by bedbound status & sacral decubital ulcer. Recently discharged from SNF with increasing weakness and decreased ability to walk in last week. Admitted for speech problems and facial droop. Current diagnoses include altered mental status, hypotension, & dehydration. Mental status is reported to NOT be at baseline, baseline reported to be "completely lucid" with interest in keeping up with current events. Medications: Medications Reviewed Allergies: Refer to medical record - Subjective Pain: unable to communicate - communication not consistent; did not verbalize pain or appear to be in pain, no signs/symptoms of pain - Objective Assessment: Upright, Left Lateral - Food Trials Food Trials Used: Thin liquids, Honey-thickened liquids, Pureed The Patient: Required Assist, fed by ST, via cup - Esophageal Stage Esophageal Stage Comments: not able to visualize esophageal stage due to positioning - Impression/Summary Laryngeal Penetration: Yes, Deep Tracheal Aspiration: yes - Recommendations NPO: yes, therapeutic trials Strict Aspitarion Precautions: Yes Dysphagia Therapy with BLUEPRINT MACHINE OPERATOR: Yes Recommended Techniques: Fully Upright During Meal Supervision: Constant Other Recommendations: SUMMARY: Patient had difficulty taking liquids from spoon and opening mouth for spoon; reduced opening and delayed opening wtih both presentation of spoon and verbal cues to open. First spoon sip presented actually not swallowed, ran out of mouth in severe oral loss. Patient presented with overall reduced motion in pharyngeal stage with reduced base of tongue motion, reduced movement of posterior pharyngeal wall, and reduced closure of laryngeal vestibule resulting in reduced pressure generation. On THIN liquids, patient demonstrated penetration resulting in likely aspiration, but difficult to visualize due to movement. Patient did appear to have consistent cough with thin. On PUDDING, paitent demonstrated intermittent aspiration and with HONEY no aspiration was observed but patient is at high risk. Results were communicated to Dr. Keller. ST recommends NPO as safest diet, however if medical team or family wishes to pursue oral diet, honey & puree is judged to be safest however patient will likely aspirate intermittently across the course of a meal. PLAN to follow patient as she appears to not be at baseline status and swallowing likely to improve if mental status improves. Recommend re-assessment with improvement in mental status &/or before discharge. May benefit from repeating MBSS prior to discharge. GOAL for Dysphagia: tolerate oral diet without ssx aspiration. FREQUENCY: 1-3x per week - Time Total Time: 10 Total Timed Minutes: 0
[2020-03-16] MEDS ORDERED: GLUCAGON,HUMAN RECOMB 1 MG INJ IM PRN (15:17)
[2020-03-16] MEDS ORDERED: DEXTROSE 40% GEL 15 GM TUBE PO PRN ×2 (15:17)
[2020-03-16] MEDS ORDERED: DEXTROSE 50%-WATER 25 GM/50 ML DISP.SYRIN IV PRN ×2 (15:17)
[2020-03-16] MEDS ORDERED: DEXTROSE 5%-NORMAL SALINE 1,000 ML IV PRN (15:19)
[2020-03-16] MEDS ORDERED: ASPIRIN 300 MG SUPP, RECTAL PR ONE (16:30)
[2020-03-16] MEDS ORDERED: INSULIN REG, HUMAN 100 UNIT/ML 3 ML VIAL (PYX) SUBCUT SCH (18:00)
[2020-03-16] MEDS ORDERED: ENOXAPARIN SODIUM INJ 80 MG/0.8 ML DISP.SYRIN SUBCUT SCH ×2 (18:00→22:00)
[2020-03-16] MEDS: CEFTRIAXONE 1 GM/D5W RTU 1 GM/50 ML RTUPB IV SCH (18:12)
--- NOTE | 2020-03-16 20:53 | PDOC PROGRESS REPORT ---
Subjective Date:: 03/16/20 Subjective:: NAEO. She is much more awake today. She has dysarthria and dysphagia with R-sided weakness. Reason For Visit: CVA, URINARY PATRICIA INFECTION Physical Exam Vital Signs: Temp Pulse Resp BP Pulse Ox 97.7 F 90 18 139/71 H 97 03/16/20 16:00 03/16/20 16:00 03/16/20 16:00 03/16/20 16:00 03/16/20 16:00 Intake & Output 03/15/20 03/16/20 03/17/20 06:59 06:59 06:59 Intake Total 3150 2450 Output Total 150 900 Balance 3000 1550 Weight 70.5 kg General appearance: PRESENT: no acute distress, cooperative Head exam: PRESENT: atraumatic Eye exam: ABSENT: scleral icterus Mouth exam: PRESENT: dry mucosa Throat exam: ABSENT: post pharyngeal erythema Neck exam: ABSENT: JVD Respiratory exam: PRESENT: clear to auscultation dorina Cardiovascular exam: PRESENT: RRR GI/Abdominal exam: PRESENT: normal bowel sounds, soft. ABSENT: tenderness Gentrourinary exam: PRESENT: indwelling catheter Extremities exam: ABSENT: pedal edema Neurological exam: PRESENT: alert, awake, other - dysarthria, dysphagia, R facial droop, R sided weakness Psychiatric exam: PRESENT: flat affect Skin exam: ABSENT: jaundice Results Laboratory Results: 03/16/20 06:04 03/16/20 06:04 03/16/20 03/16/20 03/16/20 06:04 06:04 06:04 WBC 4.3 RBC 3.18 L Hgb 9.9 L D Hct 29.3 L MCV 92 MCH 31.2 MCHC 33.9 RDW 15.0 H Plt Count 164 Sodium 137.9 Potassium 4.2 Chloride 116 H Carbon Dioxide 11 L Anion Gap 11 BUN 30 H Creatinine 1.85 H Est GFR ( Amer) 32 L Glucose 90 Calcium 8.5 Magnesium 1.3 L TSH 2.04 Free T4 1.32 03/15/20 12:46 Blood Blood Culture (PCR) - Final Staphylococcus Species Impressions: Venous Doppler Study 03/15/20 00:00 IMPRESSION: There are no findings to suggest deep vein thrombosis within the left lower extremity. Chest X-Ray 03/15/20 13:05 IMPRESSION: NO ACUTE RADIOGRAPHIC FINDING IN THE CHEST. Head CT 03/15/20 13:06 IMPRESSION: 1. NO EVIDENCE OF INTRACRANIAL HEMORRHAGE OR LARGE VASCULAR TERRITORY INFARCT. IF HIGH CLINICAL CONCERN FOR ACUTE ISCHEMIC EVENT CONSIDER MRI. 2. STABLE MILD CHRONIC CHANGES OF ATROPHY AND MICROVASCULAR ISCHEMIA. EVIDENCE OF ACUTE STROKE: NO. Brain MRI with MRA 03/16/20 00:00 IMPRESSION: No significant stenosis. Head MRI 03/16/20 00:00 IMPRESSION: Acute small nonhemorrhagic infarct left insula. Tiny lacunar infarct left parietal white matter. EVIDENCE OF ACUTE STROKE: YES. LEFT MCA. Modified Barium Swallow 03/16/20 00:00 IMPRESSION: DEEP LARYNGEAL PENETRATION WITH TRACE ASPIRATION SEEN WITH THIN BARIUM WELL WITH PUREED CONSISTENCY. PLEASE SEE SPEECH PATHOLOGIST REPORT FOR OTHER FINDINGS AND RECOMMENDATIONS. Assessment and Plan - Diagnosis (1) Neurologic deficit due to acute ischemic cerebrovascular accident (CVA) Is this a current diagnosis for this admission?: Yes (2) Decubitus ulcer Is this a current diagnosis for this admission?: Yes (3) Dysphagia Is this a current diagnosis for this admission?: Yes (4) Hypotension Is this a current diagnosis for this admission?: Yes (5) Urinary tract infection Is this a current diagnosis for this admission?: Yes (6) WILLIAM (acute kidney injury) Is this a current diagnosis for this admission?: Yes (7) Acute metabolic encephalopathy Is this a current diagnosis for this admission?: Yes (8) Volume depletion Is this a current diagnosis for this admission?: Yes - Plan Summary Summary: CHRISTY SOW is an 84 year old female with PMH of prior CVA, HTN, HLD, Crohn's disease c/b continuous stool incontinence, right intertrochanteric femoral fracture status post repair c/b bed-bound status and sacral decubitus ulcer who presented to the ED on 03/15/2020 with altered mental status and right facial droop. History provided by her daughter, Romi, with whom the patient lives. Family notes that she was last seen normal 03/14 evening. On 03/15 at around 4 AM, she started calling out for her family and they were unsure why and did not notice a change in her mental status. Later in the day, they noticed that she had a R facial droop and "couldn't string 2 words together" so they decided to have her brought to the ED that afternoon. Of note, she has had history of several recent strokes and was just discharged from SNF recently. Two weeks ago, when she left [facility], she was able to walk ~5 feet with a walker. Over the last week, she has become much more weak and debilitated and is "barely able to hold her own weight up." She spends the vast majority of her days in bed. Family is able to get her into a wheelchair for bathing. She is incontinent of stool. She has a known sacral decubitus ulcer for which she receives wound care, and it has been improving in appearance. [facility] is her Home Healthcare provider; she receives RN, wound care and PT services. Acute Ischemic CVA: CT head on admission showed no evidence of acute CVA or bleed. She was out of the window for tPA or thrombectomy by the time of arrival in the ED. On 03/16, MRI brain showed acute infarct in L insula and acute lacunar infarct in L parietal lobe. She is already bed-bound and she now has dysarthria and dysphagia in addition to hemiparesis. Exam findings and MRI discussed with her family at length and they have decided to pursue comfort measures only. They would like for her to be discharged home with hospice [facility]. Dysphagia - hold home oral medications - aspiration precautions - she may have pleasure feeds as tolerated - oral care UTI: she was straight catheterized for UA. UCx growing GNR. - continue ceftriaxone Hypotension: resolved Dehydration: resolved Pre-renal WILLIAM: improved with IVF - Osullivan inserted for comfort Seizure Disorder - continue home Keppra, convert to IV for now Decubitus Ulcer - wound care - Q2H turns Dispo: discharge planning consult for arranging home health services - Time Time Spent with patient: 35 or more minutes Anticipated Discharge Disposition: Home with Hospice Anticipated Discharge Timeframe: within 24 hours
[2020-03-17] MEDS ORDERED: ASPIRIN 300 MG SUPP, RECTAL PR SCH (10:00)
[2020-03-17] MEDS: LEVETIRACETAM 500 MG/NACL-ISO 500 MG/100 ML RTUPB IV SCH (10:22)
--- NOTE | 2020-03-17 15:40 | PDOC DISCHARGE SUMMARY ---
Impression - Admit/DC Date/PCP Admission Date/Primary Care Provider: 03/15/20 19:59 MENDEZ YOUNG Discharge Date: 03/17/20 - Discharge Diagnosis (1) Neurologic deficit due to acute ischemic cerebrovascular accident (CVA) Is this a current diagnosis for this admission?: Yes (2) Decubitus ulcer Is this a current diagnosis for this admission?: Yes (3) Dysphagia Is this a current diagnosis for this admission?: Yes (4) Hypotension Is this a current diagnosis for this admission?: Yes (5) Urinary tract infection Is this a current diagnosis for this admission?: Yes (6) WILLIAM (acute kidney injury) Is this a current diagnosis for this admission?: Yes (7) Acute metabolic encephalopathy Is this a current diagnosis for this admission?: Yes (8) Volume depletion Is this a current diagnosis for this admission?: Yes - Assessment Summary: CHRISTY SOW is an 84 year old female with PMH of prior CVA, HTN, HLD, Crohn's disease c/b continuous stool incontinence, right intertrochanteric femoral fracture status post repair c/b bed-bound status and sacral decubitus ulcer who presented to the ED on 03/15/2020 with altered mental status and right facial droop. History provided by her daughter, Romi, with whom the patient lives. Family notes that she was last seen normal 03/14 evening. On 03/15 at around 4 AM, she started calling out for her family and they were unsure why and did not notice a change in her mental status. Later in the day, they noticed that she had a R facial droop and "couldn't string 2 words together" so they decided to have her brought to the ED that afternoon. Of note, she has had history of several recent strokes and was just discharged from SNF recently. Two weeks ago, when she left [facility], she was able to walk ~5 feet with a walker. Over the last week, she has become much more weak and debilitated and is "barely able to hold her own weight up." She spends the vast majority of her days in bed. Family is able to get her into a wheelchair for bathing. She is incontinent of stool. She has a known sacral decubitus ulcer for which she receives wound care, and it has been improving in appearance. [facility] is her Home [facility] provider; she receives RN, wound care and PT services. Acute Ischemic CVA: CT head on admission showed no evidence of acute CVA or bleed. She was out of the window for tPA or thrombectomy by the time of arrival in the ED. On 03/16, MRI brain showed acute infarct in L insula and acute lacunar infarct in L parietal lobe. She is already bed-bound and she now has dysarthria and dysphagia in addition to hemiparesis. Exam findings and MRI discussed with her family at length and they have decided to pursue comfort measures only. They would like for her to be discharged home with hospice. Dysphagia - hold home oral medications - aspiration precautions - she may have pleasure feeds as tolerated - oral care UTI: She received antibiotics x3 days for treatment. Hypotension: resolved Dehydration: resolved Pre-renal WILLIAM: improved with IVF - Osullivan catheter inserted for comfort Seizure Disorder - continue home Keppra Decubitus Ulcer - wound care - Q2H turns Dispo: discharge home with hospice for comfort care - Additional Information Resuscitation Status: Comfort Measures Only Discharge Diet: Regular, Other (Comments) - pleasure feeds as tolerated Discharge Activity: Activity As Tolerated Referrals: SAMI DELGADO PA [Primary Care Provider] - Follow up as needed Prescriptions: Levetiracetam 500 mg PO BID #1 bottle Home Medications: Levetiracetam 500 mg PO BID #1 bottle 03/17/20 History of Present Illiness History of Present Illness: CHRISTY SOW is an 84 year old female with PMH of prior CVA, HTN, HLD, Crohn's disease c/b continuous stool incontinence, right intertrochanteric femoral fracture status post repair c/b bed-bound status and sacral decubitus ulcer who presents to ED with altered mental status and right facial droop. Physical Exam Vital Signs: Temp Pulse Resp BP Pulse Ox 97.9 F 92 22 H 177/66 H 98 03/17/20 07:45 03/17/20 07:45 03/17/20 07:45 03/17/20 07:45 03/17/20 07:45 Intake & Output 03/16/20 03/17/20 03/18/20 06:59 06:59 06:59 Intake Total 3150 2550 100 Output Total 150 1400 1600 Balance 3000 1150 -1500 Weight 70.5 kg 70.5 kg Results Laboratory Results: WBC 4.3 10^3/uL (4.0-10.5) 03/16/20 06:04 RBC 3.18 10^6/uL (3.72-5.28) L 03/16/20 06:04 Hgb 9.9 g/dL (12.0-15.5) L D 03/16/20 06:04 Hct 29.3 % (36.0-47.0) L 03/16/20 06:04 MCV 92 fl (80-97) 03/16/20 06:04 MCH 31.2 pg (27.0-33.4) 03/16/20 06:04 MCHC 33.9 g/dL (32.0-36.0) 03/16/20 06:04 RDW 15.0 % (11.5-14.0) H 03/16/20 06:04 Plt Count 164 10^3/uL (150-450) 03/16/20 06:04 Lymph % (Auto) 24.1 % (13-45) 03/15/20 11:30 Gilliam % (Auto) 7.1 % (3-13) 03/15/20 11:30 Eos % (Auto) 2.6 % (0-6) 03/15/20 11:30 Baso % (Auto) 1.1 % (0-2) 03/15/20 11:30 Absolute Neuts (auto) 4.3 10^3/uL (1.7-8.2) 03/15/20 11:30 Absolute Lymphs (auto) 1.6 10^3/uL (0.5-4.7) 03/15/20 11:30 Absolute Monos (auto) 0.5 10^3/uL (0.1-1.4) 03/15/20 11:30 Absolute Eos (auto) 0.2 10^3/uL (0.0-0.6) 03/15/20 11:30 Absolute Basos (auto) 0.1 10^3/uL (0.0-0.2) 03/15/20 11:30 Seg Neutrophils % 65.1 % (42-78) 03/15/20 11:30 PT 21.3 SEC (11.4-15.4) H 03/15/20 11:30 INR 1.84 03/15/20 11:30 Sodium 137.9 mmol/L (137-145) 03/16/20 06:04 Potassium 4.2 mmol/L (3.6-5.0) 03/16/20 06:04 Chloride 116 mmol/L (98-107) H 03/16/20 06:04 Carbon Dioxide 11 mmol/L (22-30) L 03/16/20 06:04 Anion Gap 11 (5-19) 03/16/20 06:04 BUN 30 mg/dL (7-20) H 03/16/20 06:04 Creatinine 1.85 mg/dL (0.52-1.25) H 03/16/20 06:04 Est GFR ( Amer) 32 (>60) L 03/16/20 06:04 Est GFR (MDRD) Non-Af 26 (>60) L 03/16/20 06:04 Glucose 90 mg/dL (75-110) 03/16/20 06:04 POC Glucose 104 mg/dL (70-110) 03/16/20 17:16 Lactic Acid 0.5 mmol/L (0.7-2.1) L 03/15/20 19:30 Calcium 8.5 mg/dL (8.4-10.2) 03/16/20 06:04 Magnesium 1.3 mg/dL (1.6-2.3) L 03/16/20 06:04 Total Bilirubin 0.6 mg/dL (0.2-1.3) 03/15/20 11:30 Direct Bilirubin 0.2 mg/dL (0.0-0.4) 03/15/20 11:30 Neonat Total Bilirubin Not Reportable 03/15/20 11:30 Neonat Direct Bilirubin Not Reportable 03/15/20 11:30 Neonat Indirect Bili Not Reportable 03/15/20 11:30 AST 36 U/L (14-36) 03/15/20 11:30 ALT 23 U/L (<35) 03/15/20 11:30 Alkaline Phosphatase 154 U/L (38-126) H 03/15/20 11:30 Total Protein 7.7 g/dL (6.3-8.2) 03/15/20 11:30 Albumin 4.2 g/dL (3.5-5.0) 03/15/20 11:30 TSH 2.04 uIU/mL (0.47-4.68) 03/16/20 06:04 Free T4 1.32 ng/dL (0.78-2.19) 03/16/20 06:04 Urine Color YELLOW 03/15/20 12:23 Urine Appearance TURBID 03/15/20 12:23 Urine pH 7.0 (5.0-9.0) 03/15/20 12:23 Ur Specific [place] 1.015 03/15/20 12:23 Urine Protein >=500 mg/dL (NEGATIVE) H 03/15/20 12:23 Urine Glucose (UA) NEGATIVE mg/dL (NEGATIVE) 03/15/20 12:23 Urine Ketones TRACE mg/dL (NEGATIVE) H 03/15/20 12:23 Urine Blood SMALL (NEGATIVE) H 03/15/20 12:23 Urine Nitrite (Reflex) NEGATIVE (NEGATIVE) 03/15/20 12:23 Urine Bilirubin NEGATIVE (NEGATIVE) 03/15/20 12:23 Urine Urobilinogen 4.0 mg/dL (<2.0) H 03/15/20 12:23 Leukocyte Esterase Rfl LARGE (NEGATIVE) H 03/15/20 12:23 Urine RBC (Auto) >182 /HPF 03/15/20 12:23 Urine Bacteria (Auto) 3+ /HPF 03/15/20 12:23 Urine WBC (Reflex) > 182 /HPF 03/15/20 12:23 Urine WBC Clumps MANY /HPF 03/15/20 12:23 Amorphous Sediment Auto 3+ /HPF 03/15/20 12:23 Urine Ascorbic Acid NEGATIVE (NEGATIVE) 03/15/20 12:23 Impressions: Venous Doppler Study 03/15/20 00:00 IMPRESSION: There are no findings to suggest deep vein thrombosis within the left lower extremity. Chest X-Ray 03/15/20 13:05 IMPRESSION: NO ACUTE RADIOGRAPHIC FINDING IN THE CHEST. Head CT 03/15/20 13:06 IMPRESSION: 1. NO EVIDENCE OF INTRACRANIAL HEMORRHAGE OR LARGE VASCULAR TERRITORY INFARCT. IF HIGH CLINICAL CONCERN FOR ACUTE ISCHEMIC EVENT CONSIDER MRI. 2. STABLE MILD CHRONIC CHANGES OF ATROPHY AND MICROVASCULAR ISCHEMIA. EVIDENCE OF ACUTE STROKE: NO. Brain MRI with MRA 03/16/20 00:00 IMPRESSION: No significant stenosis. Head MRI 03/16/20 00:00 IMPRESSION: Acute small nonhemorrhagic infarct left insula. Tiny lacunar infarct left parietal white matter. EVIDENCE OF ACUTE STROKE: YES. LEFT MCA. Modified Barium Swallow 03/16/20 00:00 IMPRESSION: DEEP LARYNGEAL PENETRATION WITH TRACE ASPIRATION SEEN WITH THIN BARIUM WELL WITH PUREED CONSISTENCY. PLEASE SEE SPEECH PATHOLOGIST REPORT FOR OTHER FINDINGS AND RECOMMENDATIONS. Stroke Is this a Stroke Patient?: Yes Reason(s) for not prescribing Anti-thrombolytic therapy:: Comfort Measure Acute Heart Failure Is this a Heart Failure Patient?: No
[2020-03-17 16:33] VITALS: BP 139/71
== END 2020-03-17 17:30 | disposition hospice, home (50) | DRG 64 ==
LOC: ER 12:03 → EH 19:59 → 5 22:43
PROVIDERS: ADMIT Hospitalist; ATTEND Hospitalist
DX: I63.9 Cerebral infarction, unspecified (principal); G93.41 Metabolic encephalopathy; N17.9 Acute kidney failure, unspecified; G81.94 Hemiplegia, unspecified affecting left nondominant side; K50.90 Crohn's disease, unspecified, without complications; N39.0 Urinary tract infection, site not specified; L89.152 Pressure ulcer of sacral region, stage 2; I95.9 Hypotension, unspecified; Z51.5 Encounter for palliative care; E86.9 Volume depletion, unspecified; E86.0 Dehydration; F03.90 Unspecified dementia, unspecified severity, without behavioral disturbance, psychotic disturbance, mood disturbance, and anxiety; G40.909 Epilepsy, unspecified, not intractable, without status epilepticus; I10 Essential (primary) hypertension; E78.5 Hyperlipidemia, unspecified; F32.9 Major depressive disorder, single episode, unspecified; Z66 Do not resuscitate; R53.1 Weakness; R29.818 Other symptoms and signs involving the nervous system; R13.10 Dysphagia, unspecified; R29.810 Facial weakness; R47.1 Dysarthria and anarthria; R15.9 Full incontinence of feces; Z86.73 Personal history of transient ischemic attack (TIA), and cerebral infarction without residual deficits; Z74.01 Bed confinement status; Z88.1 Allergy status to other antibiotic agents; Z88.2 Allergy status to sulfonamides; Z88.8 Allergy status to other drugs, medicaments and biological substances
CPT/HCPCS: 36415; 51701; 51702; 70450; 70544; 70551; 71045; 74230; 80048; 80053; 81001; 82962; 83605; 83735; 84439; 84443; 85025; 85027; 85610; 87040; 87077; 87086; 87088; 87150; 87186; 93005; 93010; 93971; 96361; 96365; 96366; 96367; 99285; J0696; J1644; J1953; J3370; J3475; J3490; J7030